=== PATIENT | male | born 1960 | race African-American/Black ===

== ENCOUNTER 2016-08-29 12:08 | Inpatient (IN) | payer BC ==
[2016-08-29] MEDS ORDERED: LORazepam TAB(*) 1 MG PO ONE ×3 (12:31→18:12)
[2016-08-29 12:57] LABS: Hematocrit 40 % (42-52); Hemoglobin 13.2 g/dl (14.0-18.0); Mean Corpuscular HGB Conc 33 g/dl (31-36); Mean Corpuscular Hemoglobin 31 pg (27-31); Mean Corpuscular Volume 94 fL (80-94); Mean Platelet Volume 7 um3 (7.4-10.4); Red Blood Count 4.27 10^6/ul (4.0-5.4); Red Cell Distribution Width 16 % (10.5-15); White Blood Count 6.2 10^3/ul (3.5-10.8)
[2016-08-29 13:16] LABS: Troponin I 0.01 ng/mL (<0.04)
[2016-08-29 13:19] LABS: ALT 151 U/L (7-52); AST 120 U/L (13-39); Albumin 4.1 g/dL (3.2-5.2); Alkaline Phosphatase 73 U/L (34-104); Anion Gap 15 mmol/L (2-11); BUN/Creatinine Ratio 8.2 (8-20); Blood Urea Nitrogen 10 mg/dL (6-24); CO2 Carbon Dioxide 20 mmol/L (22-32); Calcium 9.5 mg/dL (8.6-10.3); Chloride 103 mmol/L (101-111); EGFR Non-African American 61.4 (>60); Globulin 3.2 g/dL (2-4); Glucose 146 mg/dL (70-100); Sodium 138 mmol/L (133-145); Total Protein 7.3 g/dL (6.4-8.9)
--- NOTE | 2016-08-29 13:56 | ED ---
Psychiatric Complaint - HPI Summary HPI Summary: Patient presents with concerns that he can't stop drinking. He had gastric sleeve surgery approximately 3 months ago and since then he has been less and less able to drink alcohol without epigastric pain. Over the last 6 days he has begun to feel that he has a problem with drinking and depression. He has had one week periods of sobriety, but ultimately drinks again. He has not attended any programs, meetings or seen a counselor. 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 He does not have an appointment with his surgeon and has not called regarding his regurg and epigastric pain. He is able to eat and drink regular foods, but believes he is "dumping". No SI or HI. - History Of Current Complaint Chief Complaint: EDMentalHealth Time Seen by Provider: 08/29/16 12:18 Hx Obtained From: Patient Onset/Duration: Gradual Onset Timing: Constant Severity Initially: Moderate Severity Currently: Severe Character: Depressed, Fearful Aggravating Factor(s): Alcohol Use Alleviating Factor(s): Nothing Associated Signs And Symptoms: Positive: Negative - Allergies/Home Medications Allergies/Adverse Reactions: Allergies Allergy/AdvReac Type Severity Reaction Status Date / Time No Known Allergies Allergy Verified 12/06/15 11:17 Home Medications: Home Medications Acetaminophen TAB* [Tylenol TAB*] 650 mg PO Q4H PRN 08/29/16 [History Confirmed 08/29/16] Calcium Citrate-Vitamin D [Constantino-Citrate Plus Vitamin] 1 tab PO DAILY 08/29/16 [ History Confirmed 08/29/16] Docusate CAP* [Colace Cap*] 100 mg PO BID PRN 08/29/16 [History Confirmed ] Liraglutide (NF) [Victoza (NF)] 1.8 mg SUBCUT DAILY 08/29/16 [History Confirmed 08/29/16] Multivitamins/Minerals TAB* [Theragran/minerals TAB*] 1 tab PO DAILY 08/29/16 [ History Confirmed 08/29/16] Ondansetron ODT TAB* [Zofran Odt TAB*] 4 mg PO Q6H PRN 08/29/16 [History Confirmed 08/29/16] Polyethylene Glycol 3350* [Miralax*] 17 gm PO DAILY PRN 08/29/16 [History Confirmed 08/29/16] Thiamine TAB* [Vitamin B-1 TAB*] 100 mg PO DAILY 08/29/16 [History Confirmed ] Ursodiol CAP* [Actigall CAP 300 MG*] 300 mg PO BID 08/29/16 [History Confirmed 08/29/16] oxyCODONE/Acetamin 5/325 MG* [Percocet 5/325 TAB*] 1 tab PO DAILY PRN MDD 1 tab 08/29/16 [History Confirmed 08/29/16] PMH/Surg Hx/FS Hx/Imm Hx Endocrine/Hematology History: Reports: Hx Diabetes Denies: Hx Thyroid Disease Cardiovascular History: Denies: Hx Congestive Heart Failure, Hx Deep Vein Thrombosis, Hx Hypertension , Hx Myocardial Infarction, Hx Pacemaker/ICD Respiratory History: Reports: Hx Sleep Apnea - uses CPAP at night Denies: Hx Asthma, Hx Chronic Obstructive Pulmonary Disease (COPD), Hx Lung Cancer, Hx Pneumonia, Hx Pulmonary Embolism GI History: Denies: Hx Gall Bladder Disease, Hx Gastrointestinal Bleed, Hx Ulcer, Hx Urosepsis History: Denies: Hx Kidney Stones, Hx Renal Disease Musculoskeletal History: Reports: Hx Orthopedic Injury - right knee Sensory History: Reports: Hx Contacts or Glasses Denies: Hx Hearing Aid Opthamlomology History: Reports: Hx Contacts or Glasses Neurological History: Denies: Hx Dementia, Hx Migraine, Hx Seizures, Hx Transient Ischemic Attacks (TIA) Psychiatric History: Denies: Hx Anxiety, Hx Depression, Hx Panic Disorder, Hx Schizophrenia, Hx Bipolar Disorder - Surgical History Surgery Procedure, Year, and Place: KNEE ortho sx in past meniscus/a ligament; achilles tendon repair. Infectious Disease History: No Infectious Disease History: Denies: Hx Clostridium Difficile, Hx Hepatitis, Hx Human Immunodeficiency Virus (HIV), Hx of Known/Suspected MRSA, Hx Shingles, Hx Tuberculosis, Hx Known/ Suspected VRE, Hx Known/Suspected VRSA, History Other Infectious Disease, Traveled Outside the [place] in Last 30 Days - Family History Known Family History: Positive: Cardiac Disease, Renal Disease - Social History Occupation: Unemployed Lives: Alone Alcohol Use: Daily Alcohol Amount: small amount daily Substance Use Type: Reports: None Smoking Status (MU): Former Smoker Review of Systems Positive: Abdominal Pain - epigastic pain. Negative: Vomiting, Diarrhea, Nausea Positive: Depressed - patient is weeping as he speaks All Other Systems Reviewed And Are Negative: Yes Physical Exam Triage Information Reviewed: Yes Vital Signs On Initial Exam: Initial Vitals Temp Pulse Resp BP Pulse Ox 98.1 F 113 20 148/83 100 08/29/16 12:09 08/29/16 12:09 08/29/16 12:09 08/29/16 12:09 08/29/16 12:09 Vital Signs Reviewed: Yes Appearance: Positive: Well-Appearing, No Pain Distress, Obese Skin: Positive: Warm, Skin Color Reflects Adequate Perfusion, Dry, Soft Head/Face: Positive: Normal Head/Face Inspection Eyes: Positive: EOMI, BRUNILDA, Conjunctiva Clear ENT: Positive: Hearing grossly normal Respiratory/Lung Sounds: Positive: Clear to Auscultation, Breath Sounds Present Cardiovascular: Positive: RRR - on exam Abdomen Description: Positive: Nontender, Soft. Negative: CVA Tenderness (R), CVA Tenderness (L), Distended - body habitus is limiting, Guarding Bowel Sounds: Positive: Present Musculoskeletal: Negative: Edema Left, Edema Right Neurological: Positive: Alert, Oriented to Person Place, Time, NV Bundle Intact Distally Psychiatric: Positive: Depressed AVPU Assessment: Alert - [place] Coma Scale Coma Scale Total: 15 Diagnostics - Vital Signs Vital Signs Temp Pulse Resp BP Pulse Ox 08/29/16 13:10 18 08/29/16 12:09 98.1 F 113 20 148/83 100 - Laboratory Lab Results: Lab Results 08/29/16 08/29/16 Range/Units 12:50 12:50 WBC 6.2 (3.5-10.8) 10^3/ul RBC 4.27 (4.0-5.4) 10^6/ul Hgb 13.2 L (14.0-18.0) g/dl Hct 40 L (42-52) % MCV 94 (80-94) fL MCH 31 (27-31) pg MCHC 33 (31-36) g/dl RDW 16 H (10.5-15) % Plt Count 220 (150-450) 10^3/ul MPV 7 L (7.4-10.4) um3 Neut % (Auto) 73.6 (38-83) % Lymph % (Auto) 17.0 L (25-47) % Greene % (Auto) 6.4 (1-9) % Eos % (Auto) 2.3 (0-6) % Baso % (Auto) 0.7 (0-2) % Absolute Neuts (auto) 4.5 (1.5-7.7) 10^3/ul Absolute Lymphs (auto) 1.0 (1.0-4.8) 10^3/ul Absolute Monos (auto) 0.4 (0-0.8) 10^3/ul Absolute Eos (auto) 0.1 (0-0.6) 10^3/ul Absolute Basos (auto) 0 (0-0.2) 10^3/ul Absolute Nucleated RBC 0 10^3/ul Nucleated RBC % 0 Sodium 138 (133-145) mmol/L Potassium 4.0 (3.5-5.0) mmol/L Chloride 103 (101-111) mmol/L Carbon Dioxide 20 L (22-32) mmol/L Anion Gap 15 H (2-11) mmol/L BUN 10 (6-24) mg/dL Creatinine 1.22 H (0.67-1.17) mg/dL Est GFR ( Amer) 79.0 (>60) Est GFR (Non-Af Amer) 61.4 (>60) BUN/Creatinine Ratio 8.2 (8-20) Glucose 146 H (70-100) mg/dL Calcium 9.5 (8.6-10.3) mg/dL Total Bilirubin 0.70 (0.2-1.0) mg/dL AST 120 H (13-39) U/L ALT 151 H (7-52) U/L Alkaline Phosphatase 73 (34-104) U/L Troponin I 0.01 (<0.04) ng/mL Total Protein 7.3 (6.4-8.9) g/dL Albumin 4.1 (3.2-5.2) g/dL Globulin 3.2 (2-4) g/dL Albumin/Globulin Ratio 1.3 (1-3) TSH Pending Salicylates Pending Acetaminophen Pending Serum Alcohol Pending Result Diagrams: 08/30/16 06:05 08/30/16 06:05 Lab Statement: Any lab studies that have been ordered have been reviewed, and results considered in the medical decision making process. Re-Evaluation - Re-Evaluation First Eval Re-Evaluation Time: 14:45 Change: Worse - patient has continued anxiety and epigastric pain Course/Dx - Differential Dx/Clinical Impression Differential Diagnosis/HQI/PQRI: Positive: Acute Psychosis, Alcohol Intoxication , Anxiety, Bipolar Disorder, Depression, Schizophrenia, Suicidal Ideation Provider Diagnosis: Persistent mood [affective] disorder, unspecified - Physician Notifications Patient Is Medically Stable For: Psych Evaluation Discharge - Discharge Plan Condition: Stable Disposition: ADMITTED TO [facility]
[2016-08-29 14:00] LABS: Acetaminophen < 15 mcg/mL; Alcohol 150 mg/dL (<10); Salicylate < 2.50 mg/dL (<30)
[2016-08-29 14:07] LABS: TSH (Thyroid Stimulating Horm) 1.94 mcIU/mL (0.34-5.60)
[2016-08-29 14:54] LABS: Urine Bacteria Absent (Absent); Urine Bilirubin Negative (Negative); Urine Glucose Negative (Negative); Urine Nitrite Negative (Negative)
[2016-08-29] MEDS ORDERED: Omeprazole CAP* 20 MG PO ONE (14:54)
[2016-08-29] MEDS ORDERED: Famotidine TAB* 20 MG PO ONE (14:55)
[2016-08-29 15:12] LABS: Benzodiazepine Urine Screen None Detected (None Detect)
[2016-08-29] MEDS ORDERED: LORazepam TAB(*) 1 MG ONE ×2 (18:14→21:53)
[2016-08-29] MEDS ORDERED: Ondansetron INJ* 2 MG/ML VIAL IV PRN (20:36)
[2016-08-29] MEDS ORDERED: NS 0.9% 1000 ML* 2,000 ML IV ONE (20:36)
[2016-08-29] MEDS ORDERED: LORazepam INJ* 2 MG/ML 1 ML VIAL ONE (20:36)
[2016-08-29] MEDS ORDERED: Thiamine IV* 100 MG, Folic Acid IV* 1 MG, Multiple Vitamin IV ADULT* 10 ML in NS 0.9% 1... IV ONE (20:36)
[2016-08-29] MEDS ORDERED: Dextrose 50% Syringe 50 ML* 25 GM/50 ML SYRINGE IV PUSH PRN (20:36)
[2016-08-29] MEDS ORDERED: LORazepam INJ* 2 MG/ML 1 ML VIAL IV PUSH ONE ×2 (20:39→20:40)
[2016-08-29] MEDS ORDERED: hydrALAZINE IV* 20 MG/ML VIAL IV SLOW PU PRN (20:42)
[2016-08-29] MEDS ORDERED: NS 0.9% 1000 ML* 1,000 ML IV SCH (20:45)
[2016-08-29] MEDS ORDERED: Lisinopril TAB* 10 MG ONE (20:48)
[2016-08-29] MEDS ORDERED: amLODIPine TAB* 5 MG ONE (20:48)
[2016-08-29] MEDS: Lisinopril TAB* 10 MG PO SCH (20:51)
[2016-08-29] MEDS: amLODIPine TAB* 5 MG PO SCH (20:51)
[2016-08-29] MEDS ORDERED: LORazepam TAB(*) 1 MG PO SCH (21:00)
[2016-08-29] MEDS ORDERED: Insulin Detemir (NF) 100 UNIT/ML 10 ML VIAL SUBCUT SCH (21:00)
[2016-08-29] MEDS: buPROPion SR TAB.SR* 150 MG PO SCH (22:00)
--- NOTE | 2016-08-29 23:28 | HP ---
HISTORY AND PHYSICAL: DATE OF ADMISSION: 08/29/16 PRIMARY CARE PROVIDER: Dr. Mena. ATTENDING PHYSICIAN WHILE IN THE HOSPITAL: Dr. Rashad Daniels *(report being dictated by Ronald Farias NP). CHIEF COMPLAINT: 1. Depression. 2. ETOH abuse. 3. ETOH withdrawal. HISTORY OF PRESENT ILLNESS: Mr. Mederos is a 56-year-old male patient who carries a history of diabetes, hypertension, hyperlipidemia. He also has a history of ophthalmic migraines, mitral regurgitation, tobacco abuse, obesity, and history of a CVA in November of 2015. He comes in today initially to the ER for evaluation of feeling down, depressed. He recently started drinking again. Over the last 3 months, he has been binging and he notices that he has been able to drink less and less alcohol due to epigastric pain. He felt the problem over the last week. He was dry heaving. Particularly in the morning, he was feeling nauseous. The patient was concerned, fell down. He came to the hospital. He says he was not suicidal. He was evaluated initially in the ER around 2 o'clock. He was transitioned to the flex unit as he was deemed medically stable. Unfortunately around 8 o'clock this evening after being in the flex unit, they noted that he was becoming tremulous. He was having difficulty over there. He was diaphoretic. There was concern that he was exhibiting withdrawal that may not able to be handled appropriately in the flex unit and it was felt even that he may need medical admission for ETOH withdrawal. Because of this, we were asked to evaluate the patient on admission. The patient states he has never had seizures before from withdrawing from alcohol. To his knowledge, he has never had DTs. He does state he has been drinking quite heavily in the last few months in particularly the last week and today again he came in because he was feeling depressed, but not suicidal, feeling down that he had failed his sobriety and that he was drinking again. He denies having any chest pain. He admits to epigastric pain. It is worse when he does drink alcohol. Denies any vomiting of blood and denies having any tarry stools. Because of the ETOH withdrawal, we were asked to evaluate. PAST MEDICAL HISTORY: Significant for: 1. Diabetes. 2. Hypertension. 3. Hyperlipidemia. 4. Ophthalmic migraines. 5. Mitral regurg. 6. Tobacco abuse. 7. Obesity. 8. CVA. PAST SURGICAL HISTORY: He has had a gastric sleeve surgery about 2 months ago. HOME MEDICATIONS: According to his list include: 1. Percocet 1 tablet daily as needed. 2. Wellbutrin 150 mg p.o. b.i.d. 3. Amlodipine 10 mg in the morning. 4. Actigall 300 mg p.o. daily. 5. Thiamine 100 mg daily. 6. MiraLAX 17 g daily as needed. 7. Protonix 40 mg daily. 8. Zofran 4 mg every 6 hours as needed. 9. Multivitamin 1 tablet daily. 10. Lisinopril/hydrochlorothiazide 1 tablet daily. 11. Victoza 1.8 mg subcu daily. 12. Levemir 30 units subcu b.i.d. 13. Colace 100 mg p.o. b.i.d. as needed. 14. Calcium with vitamin D 1 tablet daily. 15. Lipitor 40 mg daily. 16. Tylenol 650 mg p.o. every 4 hours as needed. ALLERGIES TO MEDICATIONS: Include no known drug allergies. FAMILY HISTORY: His mother has a history of heart disease and also diabetes. Father's history is reviewed, noncontributory. SOCIAL HISTORY: He is a former smoker. He was drinking about two thirds of a bottle of vodka a day over the last month. Surrogate decision maker is his father, Andrea. REVIEW OF SYSTEMS: There is no documented fever. He denied having any significant weight change. There was no double vision. He denies having any ear discharge. There is no rhinorrhea. There is no sore throat. No thyroid enlargement. He denied having any chest pain. There is no orthopnea. No nocturnal dyspnea. There is epigastric discomfort per my HPI. There was dry heaving. No dysuria. No frequency. No loss of consciousness. No pruritus and no skin ulcerations. Review of 14 systems completed, all others negative. PHYSICAL EXAMINATION GENERAL: At this time, Mr. Mederos is a 56-year-old male patient. He does appear to be tremulous. He does not appear to be in any acute distress, but he is obese and is well nourished and well developed. VITAL SIGNS: Blood pressure 163/90 with a pulse of 118, respirations 16, O2 sat 97%, temperature 98.7. HEENT: Head is atraumatic and normocephalic. Eyes: EOMs are intact. Sclerae anicteric and not pale. Throat: Oral mucosa appears to be dry. No oropharyngeal erythema. NECK: Supple. LUNGS: His lungs were clear to auscultation bilaterally. HEART: Sounds S1, S2. He is tachycardic. ABDOMEN: Soft. It was flat. There was tenderness in the epigastric area. EXTREMITIES: Pulses were 2+ throughout. He is able to move all 4 extremities with 5/5 strength. He had no peripheral edema. NEUROLOGIC: He is awake, he is alert, he is oriented x3. His tongue is midline. Child Care Director are equal. He had no gross focal deficits. SKIN: Intact. LABORATORY DATA AND DIAGNOSTIC STUDIES: Today revealed WBC of 6.2, RBC of 4.27 , hemoglobin 13.2, hematocrit 40, his platelets were 220. Sodium is 138, potassium 4.0, chloride of 103, bicarb 20, BUN 10, creatinine 1.22, glucose 146 , calcium 9.5, total bili 0.7, AST 120, ALT 151. Troponin 0.01. TSH 1.94. Urine showed 2 protein, 1+ blood, present hyaline cast. He had urine cannabinoids present and serum alcohol was 150. He did have an EKG here in the ED, which shows sinus tachycardia, rate of 100, flattened T-wave in lead III. It was reviewed to the previous EKG. The flattened T waves are new and tachycardia is new. There are no significant changes. Old medical records were reviewed. ASSESSMENT AND PLAN: Mr. Mederos is a 56-year-old male patient coming into the ER today initially with complaints of depression, not feeling well and feeling discouraged that he started drinking again. The patient was evaluated, medically cleared, sent to the flex unit. Unfortunately in the flex unit around 8 o'clock tonight, it was noted that he was having signs of withdrawal, so the hospitalist service was asked to evaluate. He will admitted under inpatient status for: 1. ETOH withdrawal. At this point, I will go ahead and put him on the [place] protocol. We will give him banana bag. He is tachycardic. I am going to give him 2 L of fluid wide open with the banana bag, after that normal saline at 100 an hour. We started him on folic acid, thiamine. We will give him 2 of Ativan right now IV and then will follow the [facility] protocol. 2. Diabetes. He will be on lispro sliding scale. 3. Epigastric pain. 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 I am going to go ahead and put him on Carafate, in addition to this Protonix IV and we will continue with supportive care. 4. Hypertension. His blood pressure is elevated in the 160 to 170 here. Again , probably from the withdrawal, but he did not take his meds this morning either , so I will go ahead and restart his meds now and I have ordered p.r.n. hydralazine. 5. Hyperlipidemia. Continue meds as prescribed. 6. Ophthalmic migraine. Continue his current medical regimen. 7. History of cerebrovascular accident. Continue with secondary prevention. I noticed he is not on an aspirin currently. We may consider starting that at some point, but I would be hesitant to do that in the setting of alcohol gastritis. May need to consider starting at some point. 8. Tobacco abuse. I have encouraged smoking cessation. 9. DVT prophylaxis. He will be placed on heparin subcu. 10. Code status. Full code. 11. Fluid, electrolyte, and nutrition. He can have a clear liquid diet. TIME SPENT: Time spent on admission was approximately 60 minutes; greater than half the time was spent [id number] with the patient obtaining my history and physical, other half time spent going over the plan of care with the patient and implementing the plan of care. I did discuss the plan of care with my attending, Dr. Daniels, he is in agreement. VIDYA FARIAS NP CC: Dr. Mena* [id number]/[facility]PS #: [id number] RAVI
[2016-08-29] MEDS: LORazepam TAB(*) 1 MG PO SCH (23:49)
[2016-08-29] MEDS: Ursodiol CAP* 300 MG PO SCH (23:53)
[2016-08-29] MEDS: Pantoprazole IV* 40 MG IV SCH (23:53)
[2016-08-30] MEDS: LORazepam TAB(*) 1 MG PO SCH ×6 (03:32→23:57)
[2016-08-30 06:44] LABS: Hematocrit 34 % (42-52); Hemoglobin 11.4 g/dl (14.0-18.0); Mean Corpuscular HGB Conc 33 g/dl (31-36); Mean Corpuscular Hemoglobin 31 pg (27-31); Mean Corpuscular Volume 94 fL (80-94); Mean Platelet Volume 8 um3 (7.4-10.4); Red Blood Count 3.65 10^6/ul (4.0-5.4); Red Cell Distribution Width 16 % (10.5-15); White Blood Count 4.6 10^3/ul (3.5-10.8)
[2016-08-30 07:11] LABS: Albumin 3.6 g/dL (3.2-5.2); BUN/Creatinine Ratio 11.6 (8-20); Calcium 8.9 mg/dL (8.6-10.3); Direct Bilirubin 0.2 mg/dL (0.03-0.18); EGFR African American 63.7 (>60); EGFR Non-African American 49.6 (>60); Globulin 2.5 g/dL (2-4); Indirect Bilirubin 0.7 mg/dL (0.3-1.0); Potassium 3.9 mmol/L (3.5-5.0); Total Bilirubin 0.9 mg/dL (0.2-1.0); Total Protein 6.1 g/dL (6.4-8.9)
[2016-08-30] MEDS: Insulin LISPRO* 1 UNITS UNIT SUBCUT SCH ×3 (07:54→16:43)
[2016-08-30] MEDS: Multivitamins/Minerals TAB PO SCH (08:12)
[2016-08-30] MEDS: Thiamine TAB* 100 MG TAB PO SCH (08:12)
[2016-08-30] MEDS: Folic Acid TAB* 1 MG PO SCH (08:13)
[2016-08-30] MEDS: Aspirin EC Low Dose* 81 MG TAB.EC PO SCH (08:13)
[2016-08-30] MEDS: amLODIPine TAB* 5 MG PO SCH (08:14)
[2016-08-30] MEDS: Lisinopril TAB* 10 MG PO SCH (08:14)
[2016-08-30] MEDS: Atorvastatin* 40 MG TAB PO SCH (08:15)
[2016-08-30] MEDS: Sucralfate TAB* 1 GM PO SCH ×3 (08:15→17:50)
[2016-08-30] MEDS: Ursodiol CAP* 300 MG PO SCH ×2 (08:15→20:32)
[2016-08-30] MEDS: Insulin GLARGINE(*) 1 UNITS UNIT SUBCUT SCH ×2 (08:17→20:33)
[2016-08-30] MEDS: buPROPion SR TAB.SR* 150 MG PO SCH ×2 (08:21→20:34)
[2016-08-30] MEDS: oxyCODONE/Acetamin 5/325 MG* TAB PO PRN (09:43)
--- NOTE | 2016-08-30 13:31 | CONS ---
PSYCHIATRIC CONSULTATION DATE OF CONSULT: 08/30/2016. DATE OF ADMISSION: 08/29/2016. ATTENDING PHYSICIAN: Nurse Practitioner Henrry Beckett. CONSULTING PHYSICIAN: Dr. Rasheed uG. REASON FOR CONSULT: Depression. PSYCHIATRIC HISTORY: The patient is a 56-year-old, single, -Nigerian male with a history of multiple medical problems who arrived in our emergency room yesterday complaining of multiple somati c symptoms of alcohol withdrawal and claiming that he was depressed and overwhelmed. Apparently at one point, he was deemed medically cleared and transferred to the ER flex space for mental health ev aluation; however, while there he developed diaphoresis, dizziness, tremulousness and actually vomit ed on the floor prompting his transfer back to the ER. He has since been admitted to the [facility] for alcohol detoxification and the primary team was worried about his stated complaint of depr ession and wondering if there was something that we could do to help him with this. On examination, the patient tells me that he has a gastric bypass surgery some time in May 2016 at [facility] and he feels that he replaced his addiction with food to an addiction with alcohol. Kevin etime around [place], he started drinking heavily and had done so for the past several months unti l the day of admission where he decided that it was time for him to stop and get some help. Unfortu nately, he started developing symptoms of withdrawal. The patient is steadfastly denying suicidal o r homicidal ideations; in fact, he denies all neurovegetative symptoms of depression. He indicates t hat his depression is merely situational after his recent loss of a job approximately three weeks ag o. 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 He apparently had disagreements with his employers which resulted in him either being fired or quitting. This also involved him changing residences because he had been tita ing on the grounds of that restaurant prior to leaving. 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 At this time, he is indicating to me that alcohol is a problem that he feels is not under h is control and he would be interested in placement in an alcohol rehabilitation facility. PAST PSYCHIATRIC HISTORY: The patient has never been diagnosed with a mental illness, nor has he carlisle d any counseling or psychiatric services. He has never taken antidepressant medications. He has no history of homicidality nor suicidality. PAST MEDICAL HISTORY: Significant for diabetes, hypertension, hyperlipidemia, ophthalmic migraines, mitral regurgitation, obesity, status post bariatric surgery in May 2016, and he had a stroke in November 2015. CURRENT MEDICATIONS: 1. Percocet one tablet daily as needed. 2. Wellbutrin 150 mg p.o. b.i.d., presumably used as a smoking cessation aid. 3. Amlodipine 10 mg in the morning. 4. Actigall 300 mg daily. 5. Thiamine 100 mg daily. 6. MiraLax 17 gm daily as needed. 7. Protonix 40 mg daily. 8. Zofran 4 mg every 6 hours as needed. 9. Multivitamin one tablet daily. 10. Lisinopril 20 mg daily. 11. Hydrochlorothiazide 25 mg daily. 12. Victoza 1.8 mg subcutaneous daily. 13. Levemir 30 units subcutaneously b.i.d. 14. Colace 100 mg p.o. b.i.d. 15. Calcium with vitamin D one tablet daily. 16. Lipitor 40 mg p.o. daily. 17. Tylenol 650 as needed every 4 hours for pain. ALLERGIES: He has no known drug allergies. FAMILY HISTORY: He denies a history of suicides in the family. SUBSTANCE ABUSE HISTORY: The patient has a long history of alcohol abuse and states that he has had to reign this in on his own in the past. He has never gone to AA meetings or gone to rehab. He carlisle s no history of DT's or seizures when withdrawing from alcohol. He has been drinking up to two-thir ds of a liter of vodka per day. He denies illicit substance abuse. He denies any current cigarette smoking, although he quit smoking cigarettes several years ago. SOCIAL HISTORY: The patient was born in [place], [place] and grew up as what he calls a militar y braangela with his father who was in the [employer] and his mother. His parents are still together. He has one sister. [place] in the [place] as his fat her would be transferred in the [employer] and so he has lived all over the country. 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 He does have a college culinary degree from a small school in [place]. He has never been , has no c hildren. He states that he is spiritual and believes in things like karma, but he does not follow a specific pentecostal. 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 He received an honorable discharge. Currently, he is living in a [facility] apartment here in [facility] and he is unemployed and living on his financial savings. His father is currently residing in [place], [place] and they are very supportive. MENTAL STATUS EXAM: The patient is a large, tall, middle-aged, -[place]igerian male wearing a manuel ent gown. He has an IV inserted and he is sitting up on his hospital bed, making good eye. Speech has a normal rate, tone and volume and he is easy to establish a rapport with. Mood appears to be e uthymic with a full affect. Thought process is linear and goal-directed. Thought content is signifi cant for his desire to quit drinking. He is denying suicidal or homicidal ideations. He denies aud itory or visual hallucinations. Insight and judgment are fair given his willingness to come to the hospital seeking treatment. Cognitively, he is awake and alert with what would appear to be an aver age intellect. DIAGNOSES: AXIS I: Alcohol use disorder; alcohol-induced mood disorder. AXIS II: Deferred. ASSESSMENT: The patient is a 56-year-old, single, -[place]ian male with a history of alcohol d ependence who arrives at the hospital in acute withdrawal from alcohol and he presents with depressi on, but no suicidality. He is given his options in the community for substance abuse treatment and at this time he is most interested in inpatient rehab. I have discussed the case with the attending clinician, who is Henrry Beckett, who is in agreement that the patient would be well- served with chris bstance abuse referral. RECOMMENDATIONS TO PRIMARY TEAM: My recommendation is that the psychiatric social worker supervisor on the [facility] unit bec ome involved in the patient's care and try and see if we can transfer him to an accepting inpatient substance abuse rehab facility. He would be cleared for transfer to such a facility in the [facility] his alcohol detoxification is completed on [facility]. I do not believe that there is any indication for any further antidepressant treatment at this point as I think his mood problems are secondary to alcohol consumption. Thank you for allowing me to participate in the care of this gentleman. [id number]/[facility] #: [id number]
--- NOTE | 2016-08-30 13:43 | PN ---
Subjective Date of Service: 08/30/16 Interval History: Patient seen and examined at bedside. He is intermittently sleeping but arouses easily to noise. He reports that he is feeling "a little better" but still feels "somewhat yucky." He denies CP, SOB, fever/chills, palpitations. He reports some anxiety and abdominal pain that comes and goes. However, he does state that he was able to eat and drink this morning. Family History: Unchanged from Admission Social History: Unchanged from Admission Past Medical History: Unchanged from Admission Objective Active Medications: Amlodipine Besylate (Norvasc Tab*) 10 mg PO QAM [facility] Last Admin: 08/30/16 08:14 Dose: 10 mg Aspirin (Aspirin Ec Low Dose*) 81 mg PO DAILY [facility] Last Admin: 08/30/16 08:13 Dose: 81 mg Atorvastatin Calcium (Lipitor*) 40 mg PO DAILY [facility] Last Admin: 08/30/16 08:15 Dose: 40 mg Bupropion HCl (Wellbutrin Sr Tab*) 150 mg PO BID [facility] Last Admin: 08/30/16 08:21 Dose: Not Given Dextrose (D50w Syringe 50 Ml*) 12.5 gm IV PUSH .FOR FS < 60 - SS PRN PRN Reason: FS < 60 Folic Acid (Folvite Tab*) 1 mg PO DAILY [facility] Last Admin: 08/30/16 08:13 Dose: 1 mg Hydralazine HCl (Apresoline Iv*) 5 mg IV SLOW PU Q6H PRN PRN Reason: BLOOD PRESSURE Sodium Chloride (Ns 0.9% 1000 Ml*) 1,000 mls @ 100 mls/hr IV PER RATE [facility] Insulin Glargine (Lantus(*)) 30 units SUBCUT BID [facility] Last Admin: 08/30/16 08:17 Dose: 30 units Insulin Human Lispro (Humalog*) 0 units SUBCUT AC [facility] PRN Reason: Protocol Last Admin: 08/30/16 12:17 Dose: Not Given Lisinopril (Prinivil Tab*) 20 mg PO DAILY [facility] Last Admin: 08/30/16 08:14 Dose: 20 mg Lorazepam (Ativan Tab(*)) 0 - 6 mg PO .PER WAM SCORE [facility] PRN Reason: Protocol Last Admin: 08/30/16 09:31 Dose: 2 mg Multivitamins/Minerals (Theragran/Minerals Tab*) 1 tab PO DAILY [facility] Last Admin: 08/30/16 08:12 Dose: 1 tab Ondansetron HCl (Zofran Inj*) 4 mg IV Q6H PRN PRN Reason: NAUSEA Oxycodone/Acetaminophen (Percocet 5/325 Tab*) 1 tab PO DAILY PRN PRN Reason: PAIN Last Admin: 08/30/16 09:43 Dose: 1 tab Pantoprazole Sodium (Protonix Iv*) 40 mg IV Q24H [facility] Last Admin: 08/29/16 23:53 Dose: 40 mg Sucralfate (Carafate*) 1 gm PO AC [facility] Last Admin: 08/30/16 12:15 Dose: 1 gm Thiamine HCl (Vitamin B-1 Tab*) 100 mg PO DAILY [facility] Last Admin: 08/30/16 08:12 Dose: 100 mg Ursodiol (Actigall Cap*) 300 mg PO BID [facility] Last Admin: 08/30/16 08:15 Dose: 300 mg Vital Signs 08/29/16 08/29/16 08/29/16 20:39 21:20 21:59 Temperature 100.0 F Pulse Rate 119 Respiratory 22 16 16 Rate Blood Pressure 155/82 (mmHg) O2 Sat by Pulse 100 Oximetry 08/29/16 08/29/16 08/29/16 22:45 23:00 23:26 Temperature 98.2 F Pulse Rate 110 Respiratory 22 16 Rate Blood Pressure 140/62 (mmHg) O2 Sat by Pulse 98 100 Oximetry 08/29/16 08/29/16 08/30/16 23:49 23:59 01:04 Temperature Pulse Rate 104 Respiratory 16 18 Rate Blood Pressure 138/55 (mmHg) O2 Sat by Pulse 99 Oximetry 08/30/16 08/30/16 08/30/16 01:49 03:25 03:32 Temperature Pulse Rate 90 Respiratory 16 16 16 Rate Blood Pressure 181/61 (mmHg) O2 Sat by Pulse 100 Oximetry 08/30/16 08/30/16 08/30/16 05:28 05:32 07:44 Temperature 98.4 F 97.9 F Pulse Rate 91 96 Respiratory 15 16 Rate Blood Pressure 140/59 130/60 (mmHg) O2 Sat by Pulse 99 99 Oximetry 08/30/16 08/30/16 08/30/16 08:00 08:09 08:32 Temperature Pulse Rate Respiratory 18 18 Rate Blood Pressure (mmHg) O2 Sat by Pulse 98 Oximetry 08/30/16 08/30/16 08/30/16 08:57 08:59 09:31 Temperature 98.0 F Pulse Rate 120 121 Respiratory 16 18 Rate Blood Pressure 134/75 (mmHg) O2 Sat by Pulse 99 99 Oximetry 08/30/16 08/30/16 08/30/16 09:43 10:09 11:12 Temperature 98.0 F Pulse Rate 98 Respiratory 18 18 14 Rate Blood Pressure 124/63 (mmHg) O2 Sat by Pulse 97 Oximetry Oxygen Devices in Use Now: None Appearance: Male patient, lying in bed, in NAD Eyes: PERRLA Ears/Nose/Mouth/Throat: Clear Oropharnyx, Mucous Membranes Moist Neck: NL Appearance and Movements; NL JVP Respiratory: Symmetrical Chest Expansion and Respiratory Effort, Clear to Auscultation Cardiovascular: NL Sounds; No Murmurs; No JVD, RRR Abdominal: NL Sounds; No Tenderness; No Distention Extremities: No Edema Skin: No Rash or Ulcers Neurological: Alert and Oriented x 3 Lines/Tubes/Other Access: Clean, Dry and Intact Peripheral IV Nutrition: Taking PO's Result Diagrams: 08/30/16 06:05 08/30/16 06:05 Additional Lab and Data: Lab Results 08/29/16 08/29/16 Range/Units 12:50 12:50 WBC 6.2 (3.5-10.8) 10^3/ul RBC 4.27 (4.0-5.4) 10^6/ul Hgb 13.2 L (14.0-18.0) g/dl Hct 40 L (42-52) % MCV 94 (80-94) fL MCH 31 (27-31) pg MCHC 33 (31-36) g/dl RDW 16 H (10.5-15) % Plt Count 220 (150-450) 10^3/ul MPV 7 L (7.4-10.4) um3 Neut % (Auto) 73.6 (38-83) % Lymph % (Auto) 17.0 L (25-47) % [place] % (Auto) 6.4 (1-9) % Eos % (Auto) 2.3 (0-6) % Baso % (Auto) 0.7 (0-2) % Absolute Neuts (auto) 4.5 (1.5-7.7) 10^3/ul Absolute Lymphs (auto) 1.0 (1.0-4.8) 10^3/ul Absolute Monos (auto) 0.4 (0-0.8) 10^3/ul Absolute Eos (auto) 0.1 (0-0.6) 10^3/ul Absolute Basos (auto) 0 (0-0.2) 10^3/ul Absolute Nucleated RBC 0 10^3/ul Nucleated RBC % 0 Sodium 138 (133-145) mmol/L Potassium 4.0 (3.5-5.0) mmol/L Chloride 103 (101-111) mmol/L Carbon Dioxide 20 L (22-32) mmol/L Anion Gap 15 H (2-11) mmol/L BUN 10 (6-24) mg/dL Creatinine 1.22 H (0.67-1.17) mg/dL Est GFR ( Amer) 79.0 (>60) Est GFR (Non-Af Amer) 61.4 (>60) BUN/Creatinine Ratio 8.2 (8-20) Glucose 146 H (70-100) mg/dL Calcium 9.5 (8.6-10.3) mg/dL Total Bilirubin 0.70 (0.2-1.0) mg/dL AST 120 H (13-39) U/L ALT 151 H (7-52) U/L Alkaline Phosphatase 73 (34-104) U/L Troponin I 0.01 (<0.04) ng/mL Total Protein 7.3 (6.4-8.9) g/dL Albumin 4.1 (3.2-5.2) g/dL Globulin 3.2 (2-4) g/dL Albumin/Globulin Ratio 1.3 (1-3) TSH Pending Salicylates Pending Acetaminophen Pending Serum Alcohol Pending Assess/Plan/Problems-Billing Assessment: Mr. Mederos is a 56 yo male with a PMH of ETOH abuse, DM, HTN, HLD, opthalmic migraines, mitral regurgitation, tobacco abuse, obesity and CVA who presented to the ED on 08/29/16 with c/o depression and ETOH abuse and concern for ETOH withdrawal. - Patient Problems (1) Alcohol withdrawal Code(s): F10.239 - ALCOHOL DEPENDENCE WITH WITHDRAWAL, UNSPECIFIED Comment: Patient requiring lorazepam with WAM assessments. Continue WAM protocol and IV hydration. Continue thiamine and folic acid. (2) Alcohol abuse Code(s): F10.10 - ALCOHOL ABUSE, UNCOMPLICATED Comment: In active withdrawal, requiring supplemental lorazepam. Patient reports depression and increased ETOH use, given his social situation. Appreciate psych consult, who recommended inpatient treatment facility SW following (3) Acute kidney injury Code(s): N17.9 - ACUTE KIDNEY FAILURE, UNSPECIFIED Comment: Suspect acute on chronic kidney injury, as creatinine has been elevated in previous admissions. Suspect pre-renal causes, recheck creatinine tomorrow. Avoid nephrotoxic medications and renally dose medications as necessary. (4) Epigastric pain Code(s): R10.13 - EPIGASTRIC PAIN Comment: Patient denies nausea/vomiting and reports some improvement. Able to tolerate PO intake. Suspect alcoholic gastritis, continue sucralfate and pantoprazole and continue to monitor. (5) Diabetes Code(s): E11.9 - TYPE 2 DIABETES MELLITUS WITHOUT COMPLICATIONS Comment: Controlled, HgbA1c pending. Continue FSBG with Lispro SSI and BID Lantus. Resume Victoza upon discharge. (6) HTN (hypertension) Code(s): I10 - ESSENTIAL (PRIMARY) HYPERTENSION Comment: Relatively well controlled, SBP 120s-140s (one BP in 180s) Continue amlodipine and lisinopril and PRN hydralazine. (7) Hyperlipidemia Code(s): E78.5 - HYPERLIPIDEMIA, UNSPECIFIED Comment: Continue home atorvastatin. (8) History of CVA (cerebrovascular accident) Code(s): Z86.73 - PRSNL HX OF TIA (TIA), AND CEREB INFRC W/O RESID DEFICITS Comment: Continue ASA and statin. (9) DVT prophylaxis Code(s): [id number] - Comment: SQ heparin (10) Full code status Code(s): Z78.9 - OTHER SPECIFIED HEALTH STATUS Status and Disposition: Inpatient admission. Anticipate LOS >2 days.
[2016-08-30] MEDS: Heparin VIAL(*) 5000 UNITS/ML VIAL (FIVE THOUSAND) SUBCUT SCH ×2 (15:40→21:30)
[2016-08-30] MEDS: Pantoprazole IV* 40 MG IV SCH (20:34)
[2016-08-31] MEDS: LORazepam TAB(*) 1 MG PO SCH ×5 (01:55→22:07)
[2016-08-31] MEDS: NS 0.9% 1000 ML* 1,000 ML IV SCH (06:18)
[2016-08-31] MEDS: Heparin VIAL(*) 5000 UNITS/ML VIAL (FIVE THOUSAND) SUBCUT SCH ×3 (06:18→22:12)
[2016-08-31 07:18] LABS: BUN/Creatinine Ratio 15.4 (8-20); Calcium 9.3 mg/dL (8.6-10.3); EGFR African American 82.9 (>60); EGFR Non-African American 64.5 (>60); Potassium 3.8 mmol/L (3.5-5.0)
[2016-08-31] MEDS: Insulin LISPRO* 1 UNITS UNIT SUBCUT SCH ×3 (08:09→16:53)
[2016-08-31] MEDS: Sucralfate TAB* 1 GM PO SCH ×3 (08:40→17:30)
[2016-08-31] MEDS: Aspirin EC Low Dose* 81 MG TAB.EC PO SCH (08:40)
[2016-08-31] MEDS: amLODIPine TAB* 5 MG PO SCH (08:41)
[2016-08-31] MEDS: Lisinopril TAB* 10 MG PO SCH (08:42)
[2016-08-31] MEDS: Ursodiol CAP* 300 MG PO SCH ×2 (08:43→21:47)
[2016-08-31] MEDS: Thiamine TAB* 100 MG TAB PO SCH (08:43)
[2016-08-31] MEDS: Multivitamins/Minerals TAB PO SCH (08:44)
[2016-08-31] MEDS: Atorvastatin* 40 MG TAB PO SCH (08:44)
[2016-08-31] MEDS: Folic Acid TAB* 1 MG PO SCH (08:44)
[2016-08-31] MEDS: buPROPion SR TAB.SR* 150 MG PO SCH ×2 (08:45→22:11)
[2016-08-31] MEDS ORDERED: Insulin GLARGINE(*) 1 UNITS UNIT SUBCUT SCH (09:22)
[2016-08-31] MEDS: Insulin GLARGINE(*) 1 UNITS UNIT SUBCUT SCH ×2 (09:56→22:34)
--- NOTE | 2016-08-31 13:33 | PN ---
Subjective Date of Service: 08/31/16 Interval History: Patient seen and examined at bedside. He is more anxious today and expressed concern about lost phone. Nursing and security made aware. He denies CP, SOB, abd pain. He does state he had some "queasiness" this morning and that medicine helped. He is asking about "what he is doing here." We discussed his alcohol use and withdrawal. Patient reminded of his desire to pursue inpatient treatment , which he agrees with. I did explain that the earliest this could happen would be Friday, and he verbalized understanding. Family History: Unchanged from Admission Social History: Unchanged from Admission Past Medical History: Unchanged from Admission Objective Active Medications: Amlodipine Besylate (Norvasc Tab*) 10 mg PO QAM [facility] Last Admin: 08/31/16 08:41 Dose: 10 mg Aspirin (Aspirin Ec Low Dose*) 81 mg PO DAILY [facility] Last Admin: 08/31/16 08:40 Dose: 81 mg Atorvastatin Calcium (Lipitor*) 40 mg PO DAILY [facility] Last Admin: 08/31/16 08:44 Dose: 40 mg Bupropion HCl (Wellbutrin Sr Tab*) 150 mg PO BID [facility] Last Admin: 08/31/16 08:45 Dose: Not Given Dextrose (D50w Syringe 50 Ml*) 12.5 gm IV PUSH .FOR FS < 60 - SS PRN PRN Reason: FS < 60 Last Admin: 08/30/16 23:20 Dose: 12.5 gm Folic Acid (Folvite Tab*) 1 mg PO DAILY [facility] Last Admin: 08/31/16 08:44 Dose: 1 mg Heparin Sodium (Porcine) (Heparin Vial(*)) 5,000 units SUBCUT Q8HR [facility] Last Admin: 08/31/16 06:18 Dose: 5,000 units Hydralazine HCl (Apresoline Iv*) 5 mg IV SLOW PU Q6H PRN PRN Reason: BLOOD PRESSURE Last Admin: 08/31/16 01:46 Dose: 5 mg Sodium Chloride (Ns 0.9% 1000 Ml*) 1,000 mls @ 100 mls/hr IV PER RATE [facility] Last Admin: 08/30/16 20:34 Dose: 100 mls/hr Sodium Chloride (Ns 0.9% 1000 Ml*) 1,000 mls @ 100 mls/hr IV PER RATE [facility] Last Admin: 08/31/16 06:18 Dose: 100 mls/hr Insulin Glargine (Lantus(*)) 20 units SUBCUT BID [facility] Insulin Human Lispro (Humalog*) 0 units SUBCUT AC [facility] PRN Reason: Protocol Last Admin: 08/31/16 13:07 Dose: Not Given Lisinopril (Prinivil Tab*) 20 mg PO DAILY [facility] Last Admin: 08/31/16 08:42 Dose: 20 mg Lorazepam (Ativan Tab(*)) 0 - 6 mg PO .PER WAM SCORE [facility] PRN Reason: Protocol Last Admin: 08/31/16 12:48 Dose: 3 mg Multivitamins/Minerals (Theragran/Minerals Tab*) 1 tab PO DAILY [facility] Last Admin: 08/31/16 08:44 Dose: 1 tab Ondansetron HCl (Zofran Inj*) 4 mg IV Q6H PRN PRN Reason: NAUSEA Last Admin: 08/30/16 23:34 Dose: 4 mg Oxycodone/Acetaminophen (Percocet 5/325 Tab*) 1 tab PO DAILY PRN PRN Reason: PAIN Last Admin: 08/30/16 09:43 Dose: 1 tab Pantoprazole Sodium (Protonix Iv*) 40 mg IV Q24H [facility] Last Admin: 08/30/16 20:34 Dose: 40 mg Sucralfate (Carafate*) 1 gm PO AC [facility] Last Admin: 08/31/16 13:13 Dose: 1 gm Thiamine HCl (Vitamin B-1 Tab*) 100 mg PO DAILY [facility] Last Admin: 08/31/16 08:43 Dose: 100 mg Ursodiol (Actigall Cap*) 300 mg PO BID [facility] Last Admin: 08/31/16 08:43 Dose: 300 mg Vital Signs 08/30/16 08/30/16 08/30/16 14:19 15:25 15:39 Temperature 98.5 F 98.3 F Pulse Rate 120 111 Respiratory 16 16 16 Rate Blood Pressure 131/75 122/80 (mmHg) O2 Sat by Pulse 99 99 Oximetry 08/30/16 08/30/16 08/30/16 16:41 17:23 17:39 Temperature Pulse Rate 105 Respiratory 18 18 Rate Blood Pressure 137/84 (mmHg) O2 Sat by Pulse 99 98 Oximetry 08/30/16 08/30/16 08/30/16 18:34 18:39 20:00 Temperature 98.5 F Pulse Rate 101 Respiratory 16 18 20 Rate Blood Pressure 145/88 (mmHg) O2 Sat by Pulse 100 Oximetry 08/30/16 08/30/16 08/30/16 20:39 21:07 23:20 Temperature 98.1 F 98.4 F Pulse Rate 106 115 Respiratory 20 19 Rate Blood Pressure 129/78 168/86 (mmHg) O2 Sat by Pulse 98 96 Oximetry 08/30/16 08/31/16 08/31/16 23:57 01:41 01:55 Temperature 97.9 F Pulse Rate 96 Respiratory 16 19 18 Rate Blood Pressure 196/91 (mmHg) O2 Sat by Pulse 98 Oximetry 08/31/16 08/31/16 08/31/16 01:57 03:06 03:55 Temperature Pulse Rate 94 Respiratory 16 16 Rate Blood Pressure 141/86 (mmHg) O2 Sat by Pulse 98 Oximetry 08/31/16 08/31/16 08/31/16 04:08 06:09 06:19 Temperature 97.4 F 98.3 F Pulse Rate 95 108 Respiratory 18 Rate Blood Pressure 155/61 141/91 (mmHg) O2 Sat by Pulse 98 99 Oximetry 08/31/16 08/31/16 08/31/16 08:01 08:19 08:42 Temperature 98.0 F Pulse Rate 106 Respiratory 18 18 18 Rate Blood Pressure 143/82 (mmHg) O2 Sat by Pulse 98 Oximetry 08/31/16 08/31/16 08/31/16 10:09 10:42 12:22 Temperature 98.0 F 98.3 F Pulse Rate 91 112 Respiratory 17 18 16 Rate Blood Pressure 170/64 126/88 (mmHg) O2 Sat by Pulse 99 99 Oximetry 08/31/16 12:48 Temperature Pulse Rate Respiratory 20 Rate Blood Pressure (mmHg) O2 Sat by Pulse Oximetry Oxygen Devices in Use Now: None Appearance: Male patient, sitting on edge of bed, in NAD Eyes: PERRLA Ears/Nose/Mouth/Throat: Clear Oropharnyx, Mucous Membranes Moist Neck: NL Appearance and Movements; NL JVP Respiratory: Symmetrical Chest Expansion and Respiratory Effort, Clear to Auscultation Cardiovascular: NL Sounds; No Murmurs; No JVD, RRR - tachycardic, AP 102 Abdominal: NL Sounds; No Tenderness; No Distention Extremities: No Clubbing, Cyanosis - +1-2 pitting edema to BLE Skin: No Rash or Ulcers - open area to back of left ankle Neurological: Alert and Oriented x 3, NL Gait, NL Muscle Strength and Tone, - - mild tremor to BUE Lines/Tubes/Other Access: Clean, Dry and Intact Peripheral IV Nutrition: Taking PO's Result Diagrams: 08/30/16 06:05 08/31/16 06:25 Additional Lab and Data: Lab Results 08/29/16 08/29/16 Range/Units 12:50 12:50 WBC 6.2 (3.5-10.8) 10^3/ul RBC 4.27 (4.0-5.4) 10^6/ul Hgb 13.2 L (14.0-18.0) g/dl Hct 40 L (42-52) % MCV 94 (80-94) fL MCH 31 (27-31) pg MCHC 33 (31-36) g/dl RDW 16 H (10.5-15) % Plt Count 220 (150-450) 10^3/ul MPV 7 L (7.4-10.4) um3 Neut % (Auto) 73.6 (38-83) % Lymph % (Auto) 17.0 L (25-47) % [place] % (Auto) 6.4 (1-9) % Eos % (Auto) 2.3 (0-6) % Baso % (Auto) 0.7 (0-2) % Absolute Neuts (auto) 4.5 (1.5-7.7) 10^3/ul Absolute Lymphs (auto) 1.0 (1.0-4.8) 10^3/ul Absolute Monos (auto) 0.4 (0-0.8) 10^3/ul Absolute Eos (auto) 0.1 (0-0.6) 10^3/ul Absolute Basos (auto) 0 (0-0.2) 10^3/ul Absolute Nucleated RBC 0 10^3/ul Nucleated RBC % 0 Sodium 138 (133-145) mmol/L Potassium 4.0 (3.5-5.0) mmol/L Chloride 103 (101-111) mmol/L Carbon Dioxide 20 L (22-32) mmol/L Anion Gap 15 H (2-11) mmol/L BUN 10 (6-24) mg/dL Creatinine 1.22 H (0.67-1.17) mg/dL Est GFR ( Amer) 79.0 (>60) Est GFR (Non-Af Amer) 61.4 (>60) BUN/Creatinine Ratio 8.2 (8-20) Glucose 146 H (70-100) mg/dL Calcium 9.5 (8.6-10.3) mg/dL Total Bilirubin 0.70 (0.2-1.0) mg/dL AST 120 H (13-39) U/L ALT 151 H (7-52) U/L Alkaline Phosphatase 73 (34-104) U/L Troponin I 0.01 (<0.04) ng/mL Total Protein 7.3 (6.4-8.9) g/dL Albumin 4.1 (3.2-5.2) g/dL Globulin 3.2 (2-4) g/dL Albumin/Globulin Ratio 1.3 (1-3) TSH Pending Salicylates Pending Acetaminophen Pending Serum Alcohol Pending Assess/Plan/Problems-Billing Assessment: Mr. Mederos is a 56 yo male with a PMH of ETOH abuse, DM, HTN, HLD, opthalmic migraines, mitral regurgitation, tobacco abuse, obesity and CVA who presented to the ED on 08/29/16 with c/o depression and ETOH abuse and concern for ETOH withdrawal. - Patient Problems (1) Alcohol withdrawal Code(s): F10.239 - ALCOHOL DEPENDENCE WITH WITHDRAWAL, UNSPECIFIED Comment: Patient requiring lorazepam with WAM assessments, scoring as high as 10. Will add Librium to medication regimen. Continue WAM protocol. Continue thiamine and folic acid. Awaiting inpatient treatment facility placement. (2) Alcohol abuse Code(s): F10.10 - ALCOHOL ABUSE, UNCOMPLICATED Comment: In active withdrawal, requiring supplemental lorazepam. Patient reports depression and increased ETOH use, given his social situation. Appreciate psych consult, who recommended inpatient treatment facility SW following (3) Acute kidney injury Code(s): N17.9 - ACUTE KIDNEY FAILURE, UNSPECIFIED Comment: Suspect acute on chronic kidney injury, as creatinine has been elevated in previous admissions. Resolved, creatinine better than baseline. Avoid nephrotoxic medications and renally dose medications as necessary. (4) Epigastric pain Code(s): R10.13 - EPIGASTRIC PAIN Comment: Improved, continue sucralfate and pantoprazole. May be secondary to alcoholic gastritis. (5) Diabetes Code(s): E11.9 - TYPE 2 DIABETES MELLITUS WITHOUT COMPLICATIONS Comment: Controlled, HgbA1c 7.0 Reduce home Lantus dosing to 10 units daily, as patient has been having hypoglycemic episodes. Continue FSBG with Lispro SSI. Resume Victoza upon discharge. (6) HTN (hypertension) Code(s): I10 - ESSENTIAL (PRIMARY) HYPERTENSION Comment: SBP 120s-190s Continue amlodipine and lisinopril and PRN hydralazine. Monitor closely in presence of ETOH withdrawal. (7) Hyperlipidemia Code(s): E78.5 - HYPERLIPIDEMIA, UNSPECIFIED Comment: Continue home atorvastatin. (8) History of CVA (cerebrovascular accident) Code(s): Z86.73 - PRSNL HX OF TIA (TIA), AND CEREB INFRC W/O RESID DEFICITS Comment: Continue ASA and statin. (9) DVT prophylaxis Code(s): [id number] - Comment: SQ heparin (10) Full code status Code(s): Z78.9 - OTHER SPECIFIED HEALTH STATUS Status and Disposition: Inpatient admission. Anticipate LOS >2 days.
[2016-08-31] MEDS: chlordiazePOXIDE CAP* 25 MG PO SCH ×2 (15:29→21:46)
[2016-08-31] MEDS: oxyCODONE/Acetamin 5/325 MG* TAB PO PRN (21:46)
[2016-08-31] MEDS: Pantoprazole IV* 40 MG IV SCH (22:12)
[2016-09-01] MEDS: NS 0.9% 1000 ML* 1,000 ML IV SCH ×2 (01:42→20:00)
[2016-09-01] MEDS: Heparin VIAL(*) 5000 UNITS/ML VIAL (FIVE THOUSAND) SUBCUT SCH ×3 (06:58→20:34)
[2016-09-01] MEDS: Insulin LISPRO* 1 UNITS UNIT SUBCUT SCH ×3 (08:25→17:51)
[2016-09-01] MEDS: Thiamine TAB* 100 MG TAB PO SCH (08:42)
[2016-09-01] MEDS: Aspirin EC Low Dose* 81 MG TAB.EC PO SCH (08:42)
[2016-09-01] MEDS: Multivitamins/Minerals TAB PO SCH (08:42)
[2016-09-01] MEDS: Atorvastatin* 40 MG TAB PO SCH (08:42)
[2016-09-01] MEDS: Ursodiol CAP* 300 MG PO SCH ×2 (08:42→20:34)
[2016-09-01] MEDS: chlordiazePOXIDE CAP* 25 MG PO SCH ×3 (08:42→20:34)
[2016-09-01] MEDS: oxyCODONE/Acetamin 5/325 MG* TAB PO PRN ×2 (08:43→20:42)
[2016-09-01] MEDS: Folic Acid TAB* 1 MG PO SCH (08:43)
[2016-09-01] MEDS: buPROPion SR TAB.SR* 150 MG PO SCH ×2 (08:43→20:36)
[2016-09-01] MEDS: amLODIPine TAB* 5 MG PO SCH (08:44)
[2016-09-01] MEDS: Lisinopril TAB* 10 MG PO SCH (08:44)
[2016-09-01] MEDS: Sucralfate TAB* 1 GM PO SCH ×3 (08:44→17:00)
--- NOTE | 2016-09-01 09:35 | PN ---
Subjective Date of Service: 09/01/16 Interval History: Patient seen and examined at bedside. He is sleeping but easily arousable. He states, "I'm a little groggy but not too bad this morning." He reports left knee pain that's "old pain" and states the Percocet helps with it. He denies dizziness, chest pain, SOB, abd pain, n/v. Family History: Unchanged from Admission Social History: Unchanged from Admission Past Medical History: Unchanged from Admission Objective Active Medications: Amlodipine Besylate (Norvasc Tab*) 10 mg PO QAM [facility] Last Admin: 09/01/16 08:44 Dose: 10 mg Aspirin (Aspirin Ec Low Dose*) 81 mg PO DAILY [facility] Last Admin: 09/01/16 08:42 Dose: 81 mg Atorvastatin Calcium (Lipitor*) 40 mg PO DAILY [facility] Last Admin: 09/01/16 08:42 Dose: 40 mg Bupropion HCl (Wellbutrin Sr Tab*) 150 mg PO BID [facility] Last Admin: 09/01/16 08:43 Dose: Not Given Chlordiazepoxide (Librium Cap*) 50 mg PO TID [facility] Last Admin: 09/01/16 08:42 Dose: 50 mg Dextrose (D50w Syringe 50 Ml*) 12.5 gm IV PUSH .FOR FS < 60 - SS PRN PRN Reason: FS < 60 Last Admin: 08/30/16 23:20 Dose: 12.5 gm Folic Acid (Folvite Tab*) 1 mg PO DAILY [facility] Last Admin: 09/01/16 08:43 Dose: 1 mg Heparin Sodium (Porcine) (Heparin Vial(*)) 5,000 units SUBCUT Q8HR [facility] Last Admin: 09/01/16 06:58 Dose: 5,000 units Hydralazine HCl (Apresoline Iv*) 5 mg IV SLOW PU Q6H PRN PRN Reason: BLOOD PRESSURE Last Admin: 08/31/16 01:46 Dose: 5 mg Sodium Chloride (Ns 0.9% 1000 Ml*) 1,000 mls @ 100 mls/hr IV PER RATE [facility] Last Admin: 08/30/16 20:34 Dose: 100 mls/hr Sodium Chloride (Ns 0.9% 1000 Ml*) 1,000 mls @ 100 mls/hr IV PER RATE [facility] Last Admin: 02/19/17 01:42 Dose: 50 mls/hr Insulin Glargine (Lantus(*)) 10 units SUBCUT BEDTIME [facility] Last Admin: 08/31/16 22:34 Dose: 10 units Insulin Human Lispro (Humalog*) 0 units SUBCUT AC [facility] PRN Reason: Protocol Last Admin: 09/01/16 08:25 Dose: Not Given Lisinopril (Prinivil Tab*) 20 mg PO DAILY [facility] Last Admin: 09/01/16 08:44 Dose: 20 mg Lorazepam (Ativan Tab(*)) 0 - 6 mg PO .PER WAM SCORE [facility] PRN Reason: Protocol Last Admin: 08/31/16 22:07 Dose: 3 mg Multivitamins/Minerals (Theragran/Minerals Tab*) 1 tab PO DAILY [facility] Last Admin: 09/01/16 08:42 Dose: 1 tab Ondansetron HCl (Zofran Inj*) 4 mg IV Q6H PRN PRN Reason: NAUSEA Last Admin: 08/30/16 23:34 Dose: 4 mg Oxycodone/Acetaminophen (Percocet 5/325 Tab*) 1 tab PO DAILY PRN PRN Reason: PAIN Last Admin: 09/01/16 08:43 Dose: 1 tab Pantoprazole Sodium (Protonix Iv*) 40 mg IV Q24H [facility] Last Admin: 08/31/16 22:12 Dose: 40 mg Sucralfate (Carafate*) 1 gm PO AC [facility] Last Admin: 09/01/16 08:44 Dose: 1 gm Thiamine HCl (Vitamin B-1 Tab*) 100 mg PO DAILY [facility] Last Admin: 09/01/16 08:42 Dose: 100 mg Ursodiol (Actigall Cap*) 300 mg PO BID [facility] Last Admin: 09/01/16 08:42 Dose: 300 mg Vital Signs 08/31/16 08/31/16 08/31/16 10:09 10:42 12:22 Temperature 98.0 F 98.3 F Pulse Rate 91 112 Respiratory 17 18 16 Rate Blood Pressure 170/64 126/88 (mmHg) O2 Sat by Pulse 99 99 Oximetry 08/31/16 08/31/16 08/31/16 12:48 14:20 14:48 Temperature 98.6 F Pulse Rate 117 Respiratory 20 16 18 Rate Blood Pressure 134/74 (mmHg) O2 Sat by Pulse 99 Oximetry 08/31/16 08/31/16 08/31/16 15:29 16:33 17:29 Temperature Pulse Rate 92 Respiratory 18 20 20 Rate Blood Pressure 145/87 (mmHg) O2 Sat by Pulse 97 Oximetry 08/31/16 08/31/16 08/31/16 21:00 21:14 21:46 Temperature Pulse Rate 117 Respiratory 18 16 Rate Blood Pressure 131/92 (mmHg) O2 Sat by Pulse 99 Oximetry 08/31/16 08/31/16 08/31/16 22:07 23:12 23:46 Temperature 98.5 F Pulse Rate 109 Respiratory 16 18 16 Rate Blood Pressure 139/92 (mmHg) O2 Sat by Pulse 98 Oximetry 09/01/16 09/01/16 09/01/16 00:00 00:07 01:51 Temperature 97.6 F Pulse Rate 92 Respiratory 16 16 18 Rate Blood Pressure 133/65 (mmHg) O2 Sat by Pulse 100 Oximetry 09/01/16 09/01/16 09/01/16 03:56 06:13 08:42 Temperature 98.0 F 98.1 F Pulse Rate 96 88 Respiratory 18 18 16 Rate Blood Pressure 145/82 144/71 (mmHg) O2 Sat by Pulse 98 97 Oximetry 09/01/16 08:43 Temperature Pulse Rate Respiratory 16 Rate Blood Pressure (mmHg) O2 Sat by Pulse Oximetry Oxygen Devices in Use Now: None Appearance: Male patient, lying in bed, in NAD Eyes: PERRLA Ears/Nose/Mouth/Throat: Clear Oropharnyx, Mucous Membranes Moist Neck: NL Appearance and Movements; NL JVP Respiratory: Symmetrical Chest Expansion and Respiratory Effort, Clear to Auscultation Cardiovascular: NL Sounds; No Murmurs; No JVD, RRR Abdominal: NL Sounds; No Tenderness; No Distention Extremities: No Clubbing, Cyanosis - +1 BLE Skin: No Rash or Ulcers Neurological: Alert and Oriented x 3 Lines/Tubes/Other Access: Clean, Dry and Intact Peripheral IV Nutrition: Taking PO's Result Diagrams: 08/30/16 06:05 08/31/16 06:25 Additional Lab and Data: Lab Results 08/29/16 08/29/16 Range/Units 12:50 12:50 WBC 6.2 (3.5-10.8) 10^3/ul RBC 4.27 (4.0-5.4) 10^6/ul Hgb 13.2 L (14.0-18.0) g/dl Hct 40 L (42-52) % MCV 94 (80-94) fL MCH 31 (27-31) pg MCHC 33 (31-36) g/dl RDW 16 H (10.5-15) % Plt Count 220 (150-450) 10^3/ul MPV 7 L (7.4-10.4) um3 Neut % (Auto) 73.6 (38-83) % Lymph % (Auto) 17.0 L (25-47) % [place] % (Auto) 6.4 (1-9) % Eos % (Auto) 2.3 (0-6) % Baso % (Auto) 0.7 (0-2) % Absolute Neuts (auto) 4.5 (1.5-7.7) 10^3/ul Absolute Lymphs (auto) 1.0 (1.0-4.8) 10^3/ul Absolute Monos (auto) 0.4 (0-0.8) 10^3/ul Absolute Eos (auto) 0.1 (0-0.6) 10^3/ul Absolute Basos (auto) 0 (0-0.2) 10^3/ul Absolute Nucleated RBC 0 10^3/ul Nucleated RBC % 0 Sodium 138 (133-145) mmol/L Potassium 4.0 (3.5-5.0) mmol/L Chloride 103 (101-111) mmol/L Carbon Dioxide 20 L (22-32) mmol/L Anion Gap 15 H (2-11) mmol/L BUN 10 (6-24) mg/dL Creatinine 1.22 H (0.67-1.17) mg/dL Est GFR ( Amer) 79.0 (>60) Est GFR (Non-Af Amer) 61.4 (>60) BUN/Creatinine Ratio 8.2 (8-20) Glucose 146 H (70-100) mg/dL Calcium 9.5 (8.6-10.3) mg/dL Total Bilirubin 0.70 (0.2-1.0) mg/dL AST 120 H (13-39) U/L ALT 151 H (7-52) U/L Alkaline Phosphatase 73 (34-104) U/L Troponin I 0.01 (<0.04) ng/mL Total Protein 7.3 (6.4-8.9) g/dL Albumin 4.1 (3.2-5.2) g/dL Globulin 3.2 (2-4) g/dL Albumin/Globulin Ratio 1.3 (1-3) TSH Pending Salicylates Pending Acetaminophen Pending Serum Alcohol Pending Assess/Plan/Problems-Billing Assessment: Mr. Mederos is a 56 yo male with a PMH of ETOH abuse, DM, HTN, HLD, opthalmic migraines, mitral regurgitation, tobacco abuse, obesity and CVA who presented to the ED on 08/29/16 with c/o depression and ETOH abuse and concern for ETOH withdrawal. - Patient Problems (1) Alcohol withdrawal Code(s): F10.239 - ALCOHOL DEPENDENCE WITH WITHDRAWAL, UNSPECIFIED Comment: Improving, continue Librium and prn lorazepam. Continue WAM protocol. Continue thiamine and folic acid. Awaiting inpatient treatment facility placement. (2) Alcohol abuse Code(s): F10.10 - ALCOHOL ABUSE, UNCOMPLICATED Comment: In active withdrawal, requiring Librium and supplemental lorazepam. Patient reports depression and increased ETOH use, given his social situation. Appreciate psych consult, who recommended inpatient treatment facility SW following (3) Acute kidney injury Code(s): N17.9 - ACUTE KIDNEY FAILURE, UNSPECIFIED Comment: Suspect acute on chronic kidney injury, as creatinine has been elevated in previous admissions. Resolved, creatinine better than baseline. Avoid nephrotoxic medications and renally dose medications as necessary. (4) Epigastric pain Code(s): R10.13 - EPIGASTRIC PAIN Comment: Resolved, continue sucralfate and pantoprazole. May be secondary to alcoholic gastritis. Recommend outpatient follow-up with PCP for further workup. (5) Diabetes Code(s): E11.9 - TYPE 2 DIABETES MELLITUS WITHOUT COMPLICATIONS Comment: Controlled, HgbA1c 7.0 Continue reduced dose Lantus 10 units. Continue FSBG with Lispro SSI. Resume Victoza upon discharge. (6) HTN (hypertension) Code(s): I10 - ESSENTIAL (PRIMARY) HYPERTENSION Comment: Better controlled. Continue amlodipine and lisinopril and PRN hydralazine. Monitor closely in presence of ETOH withdrawal. (7) Hyperlipidemia Code(s): E78.5 - HYPERLIPIDEMIA, UNSPECIFIED Comment: Continue home atorvastatin. (8) History of CVA (cerebrovascular accident) Code(s): Z86.73 - PRSNL HX OF TIA (TIA), AND CEREB INFRC W/O RESID DEFICITS Comment: Continue ASA and statin. (9) DVT prophylaxis Code(s): HLT0360 - Comment: SQ heparin (10) Full code status Code(s): Z78.9 - OTHER SPECIFIED HEALTH STATUS Status and Disposition: Inpatient admission. Anticipate LOS >2 days.
[2016-09-01] MEDS ORDERED: Docusate CAP* 100 MG PO PRN (12:08)
[2016-09-01] MEDS: LORazepam TAB(*) 1 MG PO SCH ×2 (13:14→23:10)
[2016-09-01] MEDS: Polyethylene Glycol 3350* 17 GM PACKET PO SCH (13:15)
[2016-09-01] MEDS: Insulin GLARGINE(*) 1 UNITS UNIT SUBCUT SCH (20:34)
[2016-09-02] MEDS: Omeprazole CAP* 20 MG PO SCH (05:52)
[2016-09-02] MEDS: Heparin VIAL(*) 5000 UNITS/ML VIAL (FIVE THOUSAND) SUBCUT SCH ×3 (05:52→20:16)
[2016-09-02] MEDS: Sucralfate TAB* 1 GM PO SCH ×3 (07:57→16:57)
[2016-09-02] MEDS: Insulin LISPRO* 1 UNITS UNIT SUBCUT SCH ×3 (07:57→17:12)
[2016-09-02] MEDS: Lisinopril TAB* 10 MG PO SCH (10:49)
[2016-09-02] MEDS: Aspirin EC Low Dose* 81 MG TAB.EC PO SCH (10:49)
[2016-09-02] MEDS: Folic Acid TAB* 1 MG PO SCH (10:49)
[2016-09-02] MEDS: Atorvastatin* 40 MG TAB PO SCH (10:50)
[2016-09-02] MEDS: chlordiazePOXIDE CAP* 25 MG PO SCH ×3 (10:50→20:16)
[2016-09-02] MEDS: amLODIPine TAB* 5 MG PO SCH (10:51)
[2016-09-02] MEDS: buPROPion SR TAB.SR* 150 MG PO SCH ×3 (10:51→20:17)
[2016-09-02] MEDS: oxyCODONE/Acetamin 5/325 MG* TAB PO PRN (10:52)
[2016-09-02] MEDS: Polyethylene Glycol 3350* 17 GM PACKET PO SCH ×2 (10:52→14:48)
[2016-09-02] MEDS: Thiamine TAB* 100 MG TAB PO SCH (10:52)
[2016-09-02] MEDS: Multivitamins/Minerals TAB PO SCH (10:55)
[2016-09-02] MEDS: Ursodiol CAP* 300 MG PO SCH ×2 (11:41→20:15)
[2016-09-02] MEDS ORDERED: Ibuprofen TAB* 600 MG PO PRN (16:13)
[2016-09-02] MEDS ORDERED: NS 0.9% 1000 ML* 1,000 ML IV SCH (16:17)
--- NOTE | 2016-09-02 16:20 | PN ---
Subjective Date of Service: 09/02/16 Interval History: Patient seen and examined at bedside. He states he's feeling better today, but tired. Denies CP, SOB, abd pain, n/v. Denies epigastric pain, tremor. Has joint pain, which is chronic, and he is taking pain medication as needed for this. Family History: Unchanged from Admission Social History: Unchanged from Admission Past Medical History: Unchanged from Admission Objective Active Medications: Amlodipine Besylate (Norvasc Tab*) 10 mg PO QAM [facility] Last Admin: 09/02/16 10:51 Dose: 10 mg Aspirin (Aspirin Ec Low Dose*) 81 mg PO DAILY [facility] Last Admin: 09/02/16 10:49 Dose: 81 mg Atorvastatin Calcium (Lipitor*) 40 mg PO DAILY [facility] Last Admin: 09/02/16 10:50 Dose: 40 mg Bupropion HCl (Wellbutrin Sr Tab*) 150 mg PO BID [facility] Last Admin: 09/02/16 11:31 Dose: Not Given Chlordiazepoxide (Librium Cap*) 50 mg PO TID [facility] Last Admin: 09/02/16 14:35 Dose: 50 mg Dextrose (D50w Syringe 50 Ml*) 12.5 gm IV PUSH .FOR FS < 60 - SS PRN PRN Reason: FS < 60 Last Admin: 08/30/16 23:20 Dose: 12.5 gm Docusate Sodium (Colace Cap*) 100 mg PO BID PRN PRN Reason: CONSTIPATION Folic Acid (Folvite Tab*) 1 mg PO DAILY [facility] Last Admin: 09/02/16 10:49 Dose: 1 mg Heparin Sodium (Porcine) (Heparin Vial(*)) 5,000 units SUBCUT Q8HR [facility] Last Admin: 09/02/16 14:35 Dose: 5,000 units Hydralazine HCl (Apresoline Iv*) 5 mg IV SLOW PU Q6H PRN PRN Reason: BLOOD PRESSURE Last Admin: 08/31/16 01:46 Dose: 5 mg Sodium Chloride (Ns 0.9% 1000 Ml*) 1,000 mls @ 100 mls/hr IV PER RATE [facility] Last Admin: 08/30/16 20:34 Dose: 100 mls/hr Sodium Chloride (Ns 0.9% 1000 Ml*) 1,000 mls @ 100 mls/hr IV PER RATE [facility] Last Admin: 09/01/16 20:00 Dose: 100 mls/hr Ibuprofen (Motrin Tab*) 600 mg PO Q8H PRN PRN Reason: PAIN Insulin Human Lispro (Humalog*) 0 units SUBCUT AC [facility] PRN Reason: Protocol Last Admin: 09/02/16 11:50 Dose: Not Given Lisinopril (Prinivil Tab*) 20 mg PO DAILY [facility] Last Admin: 09/02/16 10:49 Dose: 20 mg Lorazepam (Ativan Tab(*)) 0 - 6 mg PO .PER WAM SCORE [facility] PRN Reason: Protocol Last Admin: 09/01/16 23:10 Dose: 2 mg Metformin HCl (Glucophage*) 500 mg PO 0800,1700 [facility] Multivitamins/Minerals (Theragran/Minerals Tab*) 1 tab PO DAILY [facility] Last Admin: 09/02/16 10:55 Dose: Not Given Omeprazole (Prilosec Cap*) 20 mg PO 0600 [facility] Last Admin: 09/02/16 05:52 Dose: 20 mg Ondansetron HCl (Zofran Inj*) 4 mg IV Q6H PRN PRN Reason: NAUSEA Last Admin: 08/30/16 23:34 Dose: 4 mg Oxycodone/Acetaminophen (Percocet 5/325 Tab*) 1 tab PO DAILY PRN PRN Reason: PAIN Last Admin: 09/02/16 10:52 Dose: 1 tab Polyethylene Glycol/Electrolytes (Miralax*) 17 gm PO DAILY [facility] Last Admin: 09/02/16 14:48 Dose: 17 gm Sucralfate (Carafate*) 1 gm PO AC [facility] Last Admin: 09/02/16 11:48 Dose: 1 gm Thiamine HCl (Vitamin B-1 Tab*) 100 mg PO DAILY [facility] Last Admin: 09/02/16 10:52 Dose: 100 mg Ursodiol (Actigall Cap*) 300 mg PO BID [facility] Last Admin: 09/02/16 11:41 Dose: 300 mg Vital Signs 09/01/16 09/01/16 09/01/16 18:30 19:40 20:00 Temperature Pulse Rate 103 Respiratory 16 16 16 Rate Blood Pressure 131/85 (mmHg) O2 Sat by Pulse 99 Oximetry 09/01/16 09/01/16 09/01/16 20:17 20:34 20:42 Temperature 98.3 F Pulse Rate 86 Respiratory 16 16 16 Rate Blood Pressure 113/73 (mmHg) O2 Sat by Pulse 100 Oximetry 09/01/16 09/01/16 09/01/16 22:20 22:34 22:42 Temperature Pulse Rate 97 Respiratory 16 16 Rate Blood Pressure 111/81 (mmHg) O2 Sat by Pulse 100 Oximetry 09/01/16 09/02/16 09/02/16 23:10 00:00 00:02 Temperature 98.0 F Pulse Rate 80 Respiratory 18 16 16 Rate Blood Pressure 127/65 (mmHg) O2 Sat by Pulse 100 Oximetry 09/02/16 09/02/16 09/02/16 01:10 02:00 02:29 Temperature 97.7 F Pulse Rate 84 Respiratory 16 20 20 Rate Blood Pressure 113/57 (mmHg) O2 Sat by Pulse 98 Oximetry 09/02/16 09/02/16 09/02/16 03:56 04:00 05:51 Temperature 98.0 F 97.2 F Pulse Rate 86 80 Respiratory 16 16 16 Rate Blood Pressure 125/71 131/62 (mmHg) O2 Sat by Pulse 99 99 Oximetry 09/02/16 09/02/16 09/02/16 07:52 08:00 10:50 Temperature 97.5 F Pulse Rate 109 Respiratory 15 17 16 Rate Blood Pressure 125/72 (mmHg) O2 Sat by Pulse 100 Oximetry 09/02/16 09/02/16 09/02/16 10:52 11:02 12:52 Temperature 98.0 F Pulse Rate 106 Respiratory 16 16 16 Rate Blood Pressure 125/80 (mmHg) O2 Sat by Pulse 100 Oximetry 09/02/16 09/02/16 09/02/16 13:07 14:35 14:41 Temperature 98.2 F Pulse Rate 106 112 Respiratory 16 20 Rate Blood Pressure 98/69 119/71 (mmHg) O2 Sat by Pulse 100 98 Oximetry Oxygen Devices in Use Now: None Appearance: Male patient, lying in bed, in NAD Eyes: PERRLA Ears/Nose/Mouth/Throat: Clear Oropharnyx, Mucous Membranes Moist Neck: NL Appearance and Movements; NL JVP Respiratory: Symmetrical Chest Expansion and Respiratory Effort, Clear to Auscultation Cardiovascular: NL Sounds; No Murmurs; No JVD, RRR Abdominal: NL Sounds; No Tenderness; No Distention Extremities: No Clubbing, Cyanosis - +1 BLE Skin: No Rash or Ulcers Neurological: Alert and Oriented x 3 Lines/Tubes/Other Access: Clean, Dry and Intact Peripheral IV Nutrition: Taking PO's Result Diagrams: 08/30/16 06:05 08/31/16 06:25 Additional Lab and Data: Lab Results 08/29/16 08/29/16 Range/Units 12:50 12:50 WBC 6.2 (3.5-10.8) 10^3/ul RBC 4.27 (4.0-5.4) 10^6/ul Hgb 13.2 L (14.0-18.0) g/dl Hct 40 L (42-52) % MCV 94 (80-94) fL MCH 31 (27-31) pg MCHC 33 (31-36) g/dl RDW 16 H (10.5-15) % Plt Count 220 (150-450) 10^3/ul MPV 7 L (7.4-10.4) um3 Neut % (Auto) 73.6 (38-83) % Lymph % (Auto) 17.0 L (25-47) % [place] % (Auto) 6.4 (1-9) % Eos % (Auto) 2.3 (0-6) % Baso % (Auto) 0.7 (0-2) % Absolute Neuts (auto) 4.5 (1.5-7.7) 10^3/ul Absolute Lymphs (auto) 1.0 (1.0-4.8) 10^3/ul Absolute Monos (auto) 0.4 (0-0.8) 10^3/ul Absolute Eos (auto) 0.1 (0-0.6) 10^3/ul Absolute Basos (auto) 0 (0-0.2) 10^3/ul Absolute Nucleated RBC 0 10^3/ul Nucleated RBC % 0 Sodium 138 (133-145) mmol/L Potassium 4.0 (3.5-5.0) mmol/L Chloride 103 (101-111) mmol/L Carbon Dioxide 20 L (22-32) mmol/L Anion Gap 15 H (2-11) mmol/L BUN 10 (6-24) mg/dL Creatinine 1.22 H (0.67-1.17) mg/dL Est GFR ( Amer) 79.0 (>60) Est GFR (Non-Af Amer) 61.4 (>60) BUN/Creatinine Ratio 8.2 (8-20) Glucose 146 H (70-100) mg/dL Calcium 9.5 (8.6-10.3) mg/dL Total Bilirubin 0.70 (0.2-1.0) mg/dL AST 120 H (13-39) U/L ALT 151 H (7-52) U/L Alkaline Phosphatase 73 (34-104) U/L Troponin I 0.01 (<0.04) ng/mL Total Protein 7.3 (6.4-8.9) g/dL Albumin 4.1 (3.2-5.2) g/dL Globulin 3.2 (2-4) g/dL Albumin/Globulin Ratio 1.3 (1-3) TSH Pending Salicylates Pending Acetaminophen Pending Serum Alcohol Pending Assess/Plan/Problems-Billing Assessment: Mr. Mederos is a 56 yo male with a PMH of ETOH abuse, DM, HTN, HLD, opthalmic migraines, mitral regurgitation, tobacco abuse, obesity and CVA who presented to the ED on 08/29/16 with c/o depression and ETOH abuse and concern for ETOH withdrawal. - Patient Problems (1) Alcohol withdrawal Code(s): F10.239 - ALCOHOL DEPENDENCE WITH WITHDRAWAL, UNSPECIFIED Comment: Improving, continue Librium and prn lorazepam. Continue WAM protocol q4h. Continue thiamine and folic acid. Awaiting inpatient treatment facility placement. (2) Alcohol abuse Code(s): F10.10 - ALCOHOL ABUSE, UNCOMPLICATED Comment: Improved. Continue Librium and prn lorazepam per WAM protocol. Patient reports depression and increased ETOH use, given his social situation. Appreciate psych consult, who recommended inpatient treatment facility SW following - potential bed offers later this week. (3) Acute kidney injury Code(s): N17.9 - ACUTE KIDNEY FAILURE, UNSPECIFIED Comment: Suspect acute on chronic kidney injury, as creatinine has been elevated in previous admissions. Resolved, creatinine better than baseline. Avoid nephrotoxic medications and renally dose medications as necessary. (4) Epigastric pain Code(s): R10.13 - EPIGASTRIC PAIN Comment: Resolved, continue sucralfate and pantoprazole. May be secondary to alcoholic gastritis. Recommend outpatient follow-up with PCP for further workup. (5) Diabetes Code(s): E11.9 - TYPE 2 DIABETES MELLITUS WITHOUT COMPLICATIONS Comment: Controlled, HgbA1c 7.0 BG well controlled. D/c Lantus, start metformin. Continue FSBG with Lispro SSI. Resume Victoza upon discharge. (6) HTN (hypertension) Code(s): I10 - ESSENTIAL (PRIMARY) HYPERTENSION Comment: Normotensive. Continue amlodipine and lisinopril and PRN hydralazine. Monitor closely in presence of ETOH withdrawal. (7) Hyperlipidemia Code(s): E78.5 - HYPERLIPIDEMIA, UNSPECIFIED Comment: Continue home atorvastatin. (8) History of CVA (cerebrovascular accident) Code(s): Z86.73 - PRSNL HX OF TIA (TIA), AND CEREB INFRC W/O RESID DEFICITS Comment: Continue ASA and statin. (9) DVT prophylaxis Code(s): [id number] - Comment: SQ heparin (10) Full code status Code(s): Z78.9 - OTHER SPECIFIED HEALTH STATUS Status and Disposition: Inpatient admission. Anticipate LOS >2 days. Inpatient treatment placement in progress.
[2016-09-02] MEDS ORDERED: metFORMIN* 500 MG TAB PO SCH (17:00)
[2016-09-02] MEDS ORDERED: Acetaminophen TAB* 325 MG PO PRN (18:36)
[2016-09-02] MEDS: Insulin GLARGINE(*) 1 UNITS UNIT SUBCUT SCH (20:15)
[2016-09-03] MEDS: Omeprazole CAP* 20 MG PO SCH (05:31)
[2016-09-03] MEDS: Heparin VIAL(*) 5000 UNITS/ML VIAL (FIVE THOUSAND) SUBCUT SCH ×3 (05:31→21:29)
[2016-09-03] MEDS: Insulin LISPRO* 1 UNITS UNIT SUBCUT SCH ×2 (07:27→12:34)
[2016-09-03] MEDS ORDERED: glipiZIDE TAB* 5 MG PO SCH ×2 (08:00→17:00)
[2016-09-03] MEDS: Sucralfate TAB* 1 GM PO SCH ×3 (08:09→17:46)
[2016-09-03] MEDS: Lisinopril TAB* 10 MG PO SCH (09:07)
[2016-09-03] MEDS: amLODIPine TAB* 5 MG PO SCH (09:07)
[2016-09-03] MEDS: Multivitamins/Minerals TAB PO SCH (09:07)
[2016-09-03] MEDS: Thiamine TAB* 100 MG TAB PO SCH (09:07)
[2016-09-03] MEDS: Folic Acid TAB* 1 MG PO SCH (09:07)
[2016-09-03] MEDS: Aspirin EC Low Dose* 81 MG TAB.EC PO SCH (09:08)
[2016-09-03] MEDS: Atorvastatin* 40 MG TAB PO SCH (09:08)
[2016-09-03] MEDS: chlordiazePOXIDE CAP* 25 MG PO SCH ×2 (09:08→13:01)
[2016-09-03] MEDS: Polyethylene Glycol 3350* 17 GM PACKET PO SCH (09:09)
[2016-09-03] MEDS: Ursodiol CAP* 300 MG PO SCH ×2 (09:09→21:46)
[2016-09-03] MEDS: buPROPion SR TAB.SR* 150 MG PO SCH ×3 (09:09→21:44)
[2016-09-03] MEDS ORDERED: Magnesium CITRATE* 300 ML BTL PO ONE (12:33)
[2016-09-03] MEDS ORDERED: chlordiazePOXIDE CAP* 25 MG PO PRN (14:44)
--- NOTE | 2016-09-03 14:47 | PN ---
Subjective Date of Service: 09/03/16 Interval History: Patient seen and examined at bedside. He is sitting up in bed. The patient is happy because he found his phone. He denies tremors, chest pain, abd pain, n/v. He is looking forward to starting his inpatient treatment. No acute concerns from nursing. Family History: Unchanged from Admission Social History: Unchanged from Admission Past Medical History: Unchanged from Admission Objective Active Medications: Acetaminophen (Tylenol Tab*) 650 mg PO Q4H PRN PRN Reason: FEVER Amlodipine Besylate (Norvasc Tab*) 10 mg PO QAM [facility] Last Admin: 09/03/16 09:07 Dose: 10 mg Aspirin (Aspirin Ec Low Dose*) 81 mg PO DAILY [facility] Last Admin: 09/03/16 09:08 Dose: 81 mg Atorvastatin Calcium (Lipitor*) 40 mg PO DAILY [facility] Last Admin: 09/03/16 09:08 Dose: 40 mg Bupropion HCl (Wellbutrin Sr Tab*) 150 mg PO BID [facility] Last Admin: 09/03/16 09:09 Dose: Not Given Chlordiazepoxide (Librium Cap*) 50 mg PO TID [facility] Last Admin: 09/03/16 13:01 Dose: 50 mg Dextrose (D50w Syringe 50 Ml*) 12.5 gm IV PUSH .FOR FS < 60 - SS PRN PRN Reason: FS < 60 Last Admin: 08/30/16 23:20 Dose: 12.5 gm Docusate Sodium (Colace Cap*) 100 mg PO BID PRN PRN Reason: CONSTIPATION Folic Acid (Folvite Tab*) 1 mg PO DAILY [facility] Last Admin: 09/03/16 09:07 Dose: 1 mg Glipizide (Glucotrol Tab*) 2.5 mg PO 0800,1700 [facility] Last Admin: 09/03/16 09:07 Dose: 2.5 mg Heparin Sodium (Porcine) (Heparin Vial(*)) 5,000 units SUBCUT Q8HR [facility] Last Admin: 09/03/16 13:02 Dose: 5,000 units Hydralazine HCl (Apresoline Iv*) 5 mg IV SLOW PU Q6H PRN PRN Reason: BLOOD PRESSURE Last Admin: 08/31/16 01:46 Dose: 5 mg Sodium Chloride (Ns 0.9% 1000 Ml*) 1,000 mls @ 100 mls/hr IV PER RATE [facility] Last Admin: 08/30/16 20:34 Dose: 100 mls/hr Sodium Chloride (Ns 0.9% 1000 Ml*) 1,000 mls @ 75 mls/hr IV PER RATE [facility] Last Admin: 09/02/16 17:12 Dose: 75 mls/hr Ibuprofen (Motrin Tab*) 600 mg PO Q8H PRN PRN Reason: PAIN Insulin Glargine (Lantus(*)) 10 units SUBCUT Q24H [facility] Last Admin: 09/02/16 20:15 Dose: 10 units Insulin Human Lispro (Humalog*) 0 units SUBCUT AC [facility] PRN Reason: Protocol Last Admin: 09/03/16 12:34 Dose: Not Given Lisinopril (Prinivil Tab*) 20 mg PO DAILY [facility] Last Admin: 09/03/16 09:07 Dose: 20 mg Lorazepam (Ativan Tab(*)) 0 - 6 mg PO .PER WAM SCORE [facility] PRN Reason: Protocol Last Admin: 09/01/16 23:10 Dose: 2 mg Multivitamins/Minerals (Theragran/Minerals Tab*) 1 tab PO DAILY [facility] Last Admin: 09/03/16 09:07 Dose: 1 tab Omeprazole (Prilosec Cap*) 20 mg PO 0600 [facility] Last Admin: 09/03/16 05:31 Dose: 20 mg Ondansetron HCl (Zofran Inj*) 4 mg IV Q6H PRN PRN Reason: NAUSEA Last Admin: 08/30/16 23:34 Dose: 4 mg Oxycodone/Acetaminophen (Percocet 5/325 Tab*) 1 tab PO DAILY PRN PRN Reason: PAIN Last Admin: 09/02/16 10:52 Dose: 1 tab Polyethylene Glycol/Electrolytes (Miralax*) 17 gm PO DAILY [facility] Last Admin: 09/03/16 09:09 Dose: 17 gm Sucralfate (Carafate*) 1 gm PO AC [facility] Last Admin: 09/03/16 13:01 Dose: 1 gm Thiamine HCl (Vitamin B-1 Tab*) 100 mg PO DAILY [facility] Last Admin: 09/03/16 09:07 Dose: 100 mg Ursodiol (Actigall Cap*) 300 mg PO BID [facility] Last Admin: 09/03/16 09:09 Dose: 300 mg Vital Signs 09/02/16 09/02/16 09/02/16 16:13 16:35 18:11 Temperature 98.6 F Pulse Rate 90 98 Respiratory 16 16 16 Rate Blood Pressure 123/67 115/61 (mmHg) O2 Sat by Pulse 99 100 Oximetry 09/02/16 09/02/16 09/02/16 18:14 19:59 20:00 Temperature 98.4 F Pulse Rate 102 Respiratory 16 16 16 Rate Blood Pressure 112/67 (mmHg) O2 Sat by Pulse 100 Oximetry 09/02/16 09/02/16 09/03/16 20:16 22:16 00:04 Temperature 97.9 F Pulse Rate 84 Respiratory 16 16 21 Rate Blood Pressure 124/73 (mmHg) O2 Sat by Pulse 100 Oximetry 09/03/16 09/03/16 09/03/16 00:16 04:00 04:08 Temperature 97.9 F Pulse Rate 82 Respiratory 16 21 21 Rate Blood Pressure 128/73 (mmHg) O2 Sat by Pulse 99 Oximetry 09/03/16 09/03/16 09/03/16 07:44 08:00 09:08 Temperature 98.1 F Pulse Rate 95 Respiratory 14 20 20 Rate Blood Pressure 130/77 (mmHg) O2 Sat by Pulse 100 Oximetry 09/03/16 09/03/16 09/03/16 11:02 11:08 13:01 Temperature 97.9 F Pulse Rate 93 Respiratory 14 19 19 Rate Blood Pressure 131/75 (mmHg) O2 Sat by Pulse 100 Oximetry Oxygen Devices in Use Now: None Appearance: Male patient, lying in bed, in NAD Eyes: PERRLA Ears/Nose/Mouth/Throat: Clear Oropharnyx, Mucous Membranes Moist Neck: NL Appearance and Movements; NL JVP Respiratory: Symmetrical Chest Expansion and Respiratory Effort, Clear to Auscultation Cardiovascular: NL Sounds; No Murmurs; No JVD, RRR Abdominal: NL Sounds; No Tenderness; No Distention Extremities: No Clubbing, Cyanosis - +1 BLE edema Skin: No Rash or Ulcers Neurological: Alert and Oriented x 3 Nutrition: Taking PO's Result Diagrams: 08/30/16 06:05 08/31/16 06:25 Additional Lab and Data: Lab Results 08/29/16 08/29/16 Range/Units 12:50 12:50 WBC 6.2 (3.5-10.8) 10^3/ul RBC 4.27 (4.0-5.4) 10^6/ul Hgb 13.2 L (14.0-18.0) g/dl Hct 40 L (42-52) % MCV 94 (80-94) fL MCH 31 (27-31) pg MCHC 33 (31-36) g/dl RDW 16 H (10.5-15) % Plt Count 220 (150-450) 10^3/ul MPV 7 L (7.4-10.4) um3 Neut % (Auto) 73.6 (38-83) % Lymph % (Auto) 17.0 L (25-47) % [place] % (Auto) 6.4 (1-9) % Eos % (Auto) 2.3 (0-6) % Baso % (Auto) 0.7 (0-2) % Absolute Neuts (auto) 4.5 (1.5-7.7) 10^3/ul Absolute Lymphs (auto) 1.0 (1.0-4.8) 10^3/ul Absolute Monos (auto) 0.4 (0-0.8) 10^3/ul Absolute Eos (auto) 0.1 (0-0.6) 10^3/ul Absolute Basos (auto) 0 (0-0.2) 10^3/ul Absolute Nucleated RBC 0 10^3/ul Nucleated RBC % 0 Sodium 138 (133-145) mmol/L Potassium 4.0 (3.5-5.0) mmol/L Chloride 103 (101-111) mmol/L Carbon Dioxide 20 L (22-32) mmol/L Anion Gap 15 H (2-11) mmol/L BUN 10 (6-24) mg/dL Creatinine 1.22 H (0.67-1.17) mg/dL Est GFR ( Amer) 79.0 (>60) Est GFR (Non-Af Amer) 61.4 (>60) BUN/Creatinine Ratio 8.2 (8-20) Glucose 146 H (70-100) mg/dL Calcium 9.5 (8.6-10.3) mg/dL Total Bilirubin 0.70 (0.2-1.0) mg/dL AST 120 H (13-39) U/L ALT 151 H (7-52) U/L Alkaline Phosphatase 73 (34-104) U/L Troponin I 0.01 (<0.04) ng/mL Total Protein 7.3 (6.4-8.9) g/dL Albumin 4.1 (3.2-5.2) g/dL Globulin 3.2 (2-4) g/dL Albumin/Globulin Ratio 1.3 (1-3) TSH Pending Salicylates Pending Acetaminophen Pending Serum Alcohol Pending Assess/Plan/Problems-Billing Assessment: Mr. Mederos is a 56 yo male with a PMH of ETOH abuse, DM, HTN, HLD, opthalmic migraines, mitral regurgitation, tobacco abuse, obesity and CVA who presented to the ED on 08/29/16 with c/o depression and ETOH abuse and concern for ETOH withdrawal. - Patient Problems (1) Alcohol withdrawal Code(s): F10.239 - ALCOHOL DEPENDENCE WITH WITHDRAWAL, UNSPECIFIED Comment: Has not required supplemental lorazepam since 09/01 Continue WAM qShift Change Librium to TID PRN Continue thiamine and folic acid. [facility], awaiting insurance approval. (2) Alcohol abuse Code(s): F10.10 - ALCOHOL ABUSE, UNCOMPLICATED Comment: Patient reports depression and increased ETOH use, given his social situation. Appreciate psych consult, who recommended inpatient treatment facility [facility] received bed [facility], awaiting insurance approval. (3) Acute kidney injury Code(s): N17.9 - ACUTE KIDNEY FAILURE, UNSPECIFIED Comment: Suspect acute on chronic kidney injury, as creatinine has been elevated in previous admissions. Resolved, creatinine better than baseline. Avoid nephrotoxic medications and renally dose medications as necessary. (4) Epigastric pain Code(s): R10.13 - EPIGASTRIC PAIN Comment: Resolved, continue sucralfate and pantoprazole. May be secondary to alcoholic gastritis. Recommend outpatient follow-up with PCP for further workup. (5) Diabetes Code(s): E11.9 - TYPE 2 DIABETES MELLITUS WITHOUT COMPLICATIONS Comment: Controlled, HgbA1c 7.0 S/p recent gastric sleeve surgery. BG well controlled. Patient wants to continue Lantus, does not like side effects of Glipizide and metformin. He will work on switching to oral hypoglycemics with PCP. Resume Victoza upon discharge. (6) HTN (hypertension) Code(s): I10 - ESSENTIAL (PRIMARY) HYPERTENSION Comment: Normotensive. Continue amlodipine and lisinopril and PRN hydralazine. Monitor closely in presence of ETOH withdrawal. (7) Hyperlipidemia Code(s): E78.5 - HYPERLIPIDEMIA, UNSPECIFIED Comment: Continue home atorvastatin. (8) History of CVA (cerebrovascular accident) Code(s): Z86.73 - PRSNL HX OF TIA (TIA), AND CEREB INFRC W/O RESID DEFICITS Comment: Continue ASA and statin. (9) DVT prophylaxis Code(s): VWQ1103 - Comment: SQ heparin (10) Full code status Code(s): Z78.9 - OTHER SPECIFIED HEALTH STATUS Status and Disposition: Inpatient admission. Anticipate LOS >2 days. Inpatient treatment placement in progress.
[2016-09-03] MEDS ORDERED: Insulin LISPRO* 1 UNITS UNIT SUBCUT SCH (16:30)
--- NOTE | 2016-09-03 16:35 | RAD ---
Indication: Constipation since gastric sleeve bariatric surgery May 2016. Comparison: August 20, 2005 CT abdomen. Technique: Supine abdomen. Report: Obese body habitus limits image quality. Small volume of stool noted in the descending colon. Moderate stool at the level of the rectal vault. No dilated bowel loops evident. Multiple pelvic phleboliths. No suspicious calcifications or mass effect evident. IMPRESSION: Small volume of stool noted in the descending colon. Moderate stool at the level of the rectal vault. No evidence for bowel obstruction.
[2016-09-03] MEDS ORDERED: Bisacodyl SUPP* 10 MG SUPP PR ONE (16:46)
[2016-09-03] MEDS: Insulin GLARGINE(*) 1 UNITS UNIT SUBCUT SCH (19:44)
[2016-09-04 01:26] VITALS: BP 111/51
--- NOTE | 2016-09-04 05:57 | DS ---
DISCHARGE SUMMARY: DATE OF ADMISSION: 08/29/16 DATE OF DISCHARGE: 09/04/16 ATTENDING PHYSICIAN: Anu Byrd MD *(as dictated by Bhargavi Peng NP). CONSULTING PHYSICIAN: Rasheed Gu MD, with Psychiatry. PRIMARY CARE PHYSICIAN: Jon Mena MD. PRIMARY DISCHARGE DIAGNOSES: 1. Alcohol abuse and withdrawal. 2. Epigastric pain, suspect alcoholic gastritis. 3. Acute kidney injury. SECONDARY DISCHARGE DIAGNOSES: 1. Diabetes. 2. Hypertension. 3. Hyperlipidemia. 4. History of cerebrovascular accident. DISCHARGE MEDICATIONS: 1. Actigall 300 mg b.i.d. 2. Thiamine 100 mg daily. 3. MiraLax 17 g daily p.r.n. 4. Zofran ODT 4 mg q.6 hours p.r.n. 5. Protonix 40 mg daily. 6. Multivitamin 1 tablet daily. 7. Zestoretic 1 tablet daily. 8. Victoza 1.8 mg subcutaneously daily. 9. Levemir FlexPen 10 units subcu q.p.m. This is a change in dosing, previously 30 units b.i.d. 10. Colace 100 mg b.i.d. p.r.n. 11. Calcium citrate - vitamin D 1 tablet daily. 12. Wellbutrin SR 150 mg b.i.d. 13. Amlodipine 10 mg q.a.m. 14. Atorvastatin 40 mg daily. 15. Tylenol 650 mg q.4 hours p.r.n. 16. Folic acid 1 mg daily. 17. Ibuprofen 600 mg q.8 hours p.r.n. This is to substitute for Percocet as the patient is unable to take this at the inpatient facility where he is being discharged to. 18. Carafate 1 g before mealtime. This is a new medication. DIAGNOSTIC STUDIES: During this admission, abdominal KUB on 09/03/16 shows small volume of stool noted in the descending colon, moderate at the level of the rectal vault. No evidence for bowel obstruction. HOSPITAL COURSE OF STAY: For full details, please refer to the full H and P and medical records provided by Henrry Beckett NP, on 08/29/16. In summary, Mr. Mederos is a pleasant 56-year-old male patient who carries a history as stated above, who presented to the ED with concerns for depression, alcohol abuse, and alcohol withdrawal. He initially was triaged and evaluated for mental health; however, it was noted that he exhibited vomiting as well as complaints of epigastric pain. He was admitted to the Medicine team for alcohol withdrawal and was started on the withdrawal protocol, was given supportive care with lorazepam and supplemental vitamins and fluids. The patient did relatively well with this regimen and we were able to take the patient off the lorazepam. We also did add Librium to his regimen early on as he became very agitated early on in this admission. This did help him greatly and we were able to wean this down as well. In terms of his epigastric pain, the patient had improvement with the Carafate. It may be beneficial for him to pursue an outpatient endoscopy, which we did discuss, in the future; however, he is off Protonix and other maintenance medications that he will continue in the outpatient setting. In terms of his diabetes, the patient had multiple episodes of hypoglycemia with his Lantus dose. We took him down to 10 units in the evening and he was able to keep his blood sugars in relative control with little need for Lispro sliding scale insulin that was ordered. We discussed moving him to p.o. medications; however, he stated that he did not tolerate metformin or glipizide well and asked to stay on his Lantus and Victoza until he is able to touch base with his PCP. He was unable to be on Victoza while here in the hospital as we did not carry that, but the patient was encouraged to resume this upon discharge. In terms of his acute kidney injury, I suspected this is acute on chronic kidney injury, as he is shown to have previously elevated creatinines in past lab work; however, this has now resolved. The patient likely had acute kidney injury secondary to dehydration. He did have a psychiatric consult while he was here. The psychiatrist recommended that the case management social worker help facilitate a transfer to an inpatient substance abuse rehab facility, as the patient did request this. Psychiatry did not believe that there was any further indication for further antidepressant treatment at this point, as he suspects his mood problem is secondary to alcohol consumption. The patient has been cooperative with care and is very motivated to quit drinking. This evening at 6:20, the patient is alert, oriented. He denies any acute complaints. Denies chest pain and shortness of breath, abdominal pain. He does report occasional nausea but states that it is usually manageable with snacks. He has not required any antiemetics since 08/30/16. He denies tremors. He is eager for discharge tomorrow morning so that he may attend his inpatient facility substance abuse treatment center. The patient will be discharged on the morning of 09/04/16 with a plan to transport himself to [facility] for admission to [facility] substance abuse inpatient [facility]. The patient is medically stable for discharge. We have opted to keep him here as an inpatient until tomorrow morning in order to help mitigate the risk that he will start drinking again prior to admission to [place] as programmed. DIET: Consistent carbohydrate, heart healthy diet. ACTIVITY: As tolerated. CONDITION: Stable. [facility] The patient will self transport. TIME SPENT: Time spent on this discharge was approximately 50 minutes. This is only a brief summary of the patient's hospital course of stay. For full details, please refer to the full medical record. If you have any further questions or need further assistance, please feel free to contact me at [phone]. BHARGAVI PENG NP CC: Jon Mena MD* [id number]/[facility] #: [id number] RAVI
[2016-09-04] MEDS: Omeprazole CAP* 20 MG PO SCH (05:59)
[2016-09-04] MEDS: Heparin VIAL(*) 5000 UNITS/ML VIAL (FIVE THOUSAND) SUBCUT SCH (06:00)
== END 2016-09-04 06:45 | DRG 775 ==
LOC: ED 12:08 → MED 20:10
PROVIDERS: ADMIT Internal Medicine; ATTEND Internal Medicine
DX: F10.239 Alcohol dependence with withdrawal, unspecified (principal); N17.9 Acute kidney failure, unspecified; K29.20 Alcoholic gastritis without bleeding; Y90.6 Blood alcohol level of 120-199 mg/100 ml; E11.9 Type 2 diabetes mellitus without complications; I10 Essential (primary) hypertension; E78.5 Hyperlipidemia, unspecified; E86.0 Dehydration; G43.B0 Ophthalmoplegic migraine, not intractable; I34.0 Nonrheumatic mitral (valve) insufficiency; F17.210 Nicotine dependence, cigarettes, uncomplicated; F10.24 Alcohol dependence with alcohol-induced mood disorder; E66.9 Obesity, unspecified; Z68.37 Body mass index [BMI] 37.0-37.9, adult; Z98.84 Bariatric surgery status; Z79.1 Long term (current) use of non-steroidal anti-inflammatories (NSAID); Z79.899 Other long term (current) drug therapy; Z86.73 Personal history of transient ischemic attack (TIA), and cerebral infarction without residual deficits; Z82.49 Family history of ischemic heart disease and other diseases of the circulatory system; Z83.3 Family history of diabetes mellitus; Z79.84 Long term (current) use of oral hypoglycemic drugs
CPT/HCPCS: 36415; 74000; 80048; 80053; 80076; 80307; 80320; 80329; 81003; 81015; 83036; 83690; 84443; 84484; 85025; 85610; 93005; 94660; 94760; A9270-GY; G0480; J0360; J1644; J2060; J2405

== ENCOUNTER 2019-08-16 15:16 | Inpatient (IN) | payer SELFPAY ==
--- NOTE | 2019-08-16 15:21 | ED ---
Influenza-Like Illness - HPI Summary HPI Summary: Patient is a 59 y/o M presenting to the ED via EMS for a chief complaint of influenza-like symptoms. Patient reports generalized weakness, chest pain, cough , and rhinorrhea. The chest pain initially began 2 weeks ago and has been intermittent since initial onset. Patient denies fever or chills. No aggravating or alleviating factors are noted. Patient is a former smoker and quit using tobacco 1 weeks ago. He admits occasional alcohol use, but denies drug use. PMHx is significant for diabetes mellitus and gastroesophageal reflux disease. - History of Current Complaint Chief Complaint: EDFluSymptoms Time Seen by Provider: 08/16/19 15:20 Hx Obtained From: Patient Onset/Duration: Sudden Onset, Still Present Severity: Moderate Associated Signs & Symptoms: Cough - Allergy/Home Medications Allergies/Adverse Reactions: Allergies Allergy/AdvReac Type Severity Reaction Status Date / Time No Known Allergies Allergy Verified 12/06/15 11:17 Home Medications: Home Medications Atorvastatin* [Lipitor*] 40 mg PO DAILY 08/16/19 [History Confirmed 08/16/19] Calcium Citrate/Vitamin D3 [Calcium Citrate W/D] 1 tab PO DAILY 08/16/19 [ History Confirmed 08/16/19] Docusate CAP* [Colace Cap*] 100 mg PO BID PRN 08/16/19 [History Confirmed ] Folic Acid TAB* [Folvite TAB*] 1 mg PO DAILY 08/16/19 [History Confirmed ] Insulin Glargine,Hum.rec.anlog [Lantus Solostar 100 units/ml 3 ml x 5 PENS] 20 units SUBCUT DAILY 08/16/19 [History Confirmed 08/16/19] Lisinopril/HCTZ 20/25(NF) [Zestoretic 20/(NF)] 1 tab PO DAILY 08/16/19 [ History Confirmed 08/16/19] Pantoprazole TAB * [Protonix TAB*] 40 mg PO DAILY 08/16/19 [History Confirmed ] Pediatric Multivitamin No.101 [Gummy] 1 tab.chew PO DAILY 08/16/19 [History Confirmed 08/16/19] Sucralfate TAB* [Carafate*] 1 gm PO AC 08/16/19 [History Confirmed 08/16/19] Thiamine TAB* [Vitamin B-1 TAB*] 100 mg PO DAILY 08/16/19 [History Confirmed 09/30] amLODIPine TAB* [Norvasc 5 mg TAB*] 10 mg PO DAILY 08/16/19 [History Confirmed 08/16/19] oxyCODONE/Acetamin 5/325 MG* [Percocet 5/325 TAB*] 1 tab PO DAILY PRN 08/16/19 [ History Confirmed 08/16/19] PMH/Surg Hx/FS Hx/Imm Hx Previously Healthy: Yes Endocrine/Hematology History: Reports: Hx Diabetes Denies: Hx Thyroid Disease Cardiovascular History: Reports: Other Cardiovascular Problems/Disorders - mitral valve regurgitation Denies: Hx Congestive Heart Failure, Hx Deep Vein Thrombosis, Hx Hypertension , Hx Myocardial Infarction, Hx Pacemaker/ICD Respiratory History: Reports: Hx Sleep Apnea - uses CPAP at night Denies: Hx Asthma, Hx Chronic Obstructive Pulmonary Disease (COPD), Hx Lung Cancer, Hx Pneumonia, Hx Pulmonary Embolism GI History: Reports: Hx Gastroesophageal Reflux Disease Denies: Hx Gall Bladder Disease, Hx Gastrointestinal Bleed, Hx Ulcer, Hx Urosepsis History: Denies: Hx Kidney Stones, Hx Renal Disease Musculoskeletal History: Reports: Hx Orthopedic Injury - right knee Sensory History: Reports: Hx Contacts or Glasses Denies: Hx Legally Blind, Hx Deafness, Hx Hearing Aid Opthamlomology History: Reports: Hx Contacts or Glasses Denies: Hx Legally Blind EENT History: Denies: Hx Deafness Neurological History: Denies: Hx Dementia, Hx Migraine, Hx Seizures, Hx Transient Ischemic Attacks (TIA) Psychiatric History: Reports: Hx Substance Abuse Denies: Hx Anxiety, Hx Depression, Hx Panic Disorder, Hx Schizophrenia, Hx Bipolar Disorder - Surgical History Surgical History: Yes Surgery Procedure, Year, and Place: [facility]NEE ortho sx in past meniscus/a ligament; achilles tendon repair. Hx Anesthesia Reactions: No Infectious Disease History: No Infectious Disease History: Denies: Hx Clostridium Difficile, Hx Hepatitis, Hx Human Immunodeficiency Virus (HIV), Hx of Known/Suspected MRSA, Hx Shingles, Hx Tuberculosis, Hx Known/ Suspected VRE, Hx Known/Suspected VRSA, History Other Infectious Disease, Traveled Outside the [place] in Last 30 Days - Family History Known Family History: Positive: Cardiac Disease, Renal Disease - Social History Occupation: Unemployed Alcohol Use: Daily Alcohol Amount: small amount daily Hx Substance Use: No Substance Use Type: Reports: None Substance Use Comment - Amount & Last Used: last drink 08/29/16 at 1000 Hx Tobacco Use: Yes Smoking Status (MU): Former Smoker Type: Cigarettes Review of Systems Negative: Fever, Chills Positive: Nasal Discharge Positive: Chest Pain Positive: Cough Positive: Weakness - Generalized All Other Systems Reviewed And Are Negative: Yes Physical Exam - Summary Physical Exam Summary: VITAL SIGNS: Reviewed. GENERAL: Patient is a well-developed and nourished male who is lying comfortable in the stretcher. Patient is not in any acute respiratory distress. HEAD AND FACE: No signs of trauma. No ecchymosis, hematomas or skull depressions. No sinus tenderness. EYES: PERRLA, EOMI x 2, No injected conjunctiva, no nystagmus. EARS: Hearing grossly intact. Ear canals and tympanic membranes are within normal limits. MOUTH: Dry oral mucosa, otherwise, oropharynx within normal limits. NECK: Supple, trachea is midline, no adenopathy, no JVD, no carotid bruit, no c- spine tenderness, neck with full ROM. CHEST: Symmetric, no tenderness at palpation. LUNGS: Clear to auscultation bilaterally. No wheezing or crackles. CVS: Regular rate and rhythm, S1 and S2 present, no murmurs or gallops appreciated. ABDOMEN: Soft, non-tender. No signs of distention. No rebound, no guarding, and no masses palpated. Bowel sounds are normal. EXTREMITIES: FROM in all major joints, no edema, no cyanosis or clubbing. NEURO: Alert and oriented x 3. No acute neurological deficits. Speech is normal and follows commands. Tremors. SKIN: Dry and warm. Increased turgor. Triage Information Reviewed: Yes Vital Signs On Initial Exam: Initial Vitals Temp Pulse Resp BP Pulse Ox 98.0 F 92 18 126/71 98 08/16/19 15:17 08/16/19 15:17 08/16/19 15:17 08/16/19 15:17 08/16/19 15:17 Vital Signs Reviewed: Yes Procedures - Sedation Patient Received Moderate/Deep Sedation with Procedure: No Diagnostics - Vital Signs Vital Signs Temp Pulse Resp BP Pulse Ox 08/16/19 15:17 98.0 F 92 18 126/71 98 - Laboratory Result Diagrams: 08/16/19 15:32 08/16/19 15:32 Lab Statement: Any lab studies that have been ordered have been reviewed, and results considered in the medical decision making process. - Radiology Chest X-ray Radiology Interpretation Completed By: Radiologist Summary of Radiographic Findings: Chest X-ray IMPRESSION: NO ACTIVE CARDIOPULMONARY DISEASE. Reviewed by Dr. Barragan. - EKG 15:23 Cardiac Rate: NL - 96 BPM EKG Rhythm: Sinus Rhythm ST Segment: Normal Ectopy: None Summary of EKG Findings: EKG at 15:23 shows normal sinus rhythm with 96 BPM, no ST elevations. Reviewed and interpreted by Dr. Barragan. Flu Symptom Course/Dx - Course Assessment/Plan: Patient is a 59 y/o M presenting to the ED via EMS for a chief complaint of influenza-like symptoms. Patient reports generalized weakness, chest pain, cough, and rhinorrhea. The chest pain initially began 2 weeks ago and has been intermittent since initial onset. Patient denies fever or chills. No aggravating or alleviating factors are noted. Patient is a former smoker and quit using tobacco 1 weeks ago. He admits occasional alcohol use, but denies drug use. PMHx is significant for diabetes mellitus and gastroesophageal reflux disease. In the ED course, the patient was placed on a bilingual speech language pathologist, IV access was obtained, and IV fluids started. Patient was given an aspirin since he was complaining of chest pain. After being given the aspirin, the chest pain resolved. Therefore the patient was not given nitroglycerin. Blood tests are w/o any significant abnormality except for slight anemia with hemoglobin of 11.5 and hematocrit 34, sodium 132, potassium was 3.4, chloride 99, carbon dioxide is 14, anion gap is 19, BUN is 32, creatinine 1.63, glucose 221, increase in LFTs, troponin 0.03. Influenza A and B is negative. EKG shows a normal sinus rhythm without any ST elevation. Chest x-ray shows no acute pathology. Patient is having nausea and tremors therefore the patient was given Ativan to prevent alcohol withdrawal and Zofran for nausea and vomiting. The patient also will be given a banana bag. I discussed my physical exam findings and test results with Dr. Leavitt from the hospitalist services and she agrees to admit the patient to her services. The patient is hemodynamically stable, and alert and oriented x 3. - Diagnoses Provider Diagnoses: Chest pain, Elevated troponin, Renal failure, Acidosis - Physician Notifications Discussed Care Of Patient With: Anu Leavitt - At 17:19, Dr. Anu Leavitt reviewed the patients case and agrees to admit the patient to [facility]. Time Discussed With Above Provider: 17:19 Instructed by Provider To: Admit As Inpatient Discharge ED - Sign-Out/Discharge Documenting (check all that apply): Patient Departure - Admit - Discharge Plan Condition: Stable Disposition: ADMITTED TO [facility] - Billing Disposition and Condition Condition: STABLE Disposition: Admitted to [facility] - Attestation Statements Document Initiated by Scribe: Yes Documenting Scribe: Edilma Sweet Provider For Whom Scribe is Documenting (Include Credential): Chuy Barragan MD Scribe Attestation: Edilma Wilhelm scribed for Chuy Barragan MD on 08/16/19 at 2144. Scribe Documentation Reviewed: Yes Provider Attestation: The documentation as recorded by the Edilma otto accurately reflects the service I personally performed and the decisions made by Chuy barriga MD Status of Scribe Document: Viewed
[2019-08-16 15:38] LABS: ABS Lymphocytes 0.6 10^3/ul (1.0-4.8); ABS Monocytes 0.6 10^3/ul (0-0.8); ABS Neutrophils 3.9 10^3/ul (1.5-7.7); Eosinophil % 0.2 %; Hematocrit 34 % (42-52); Hemoglobin 11.5 g/dL (14.0-18.0); Lymphocyte % 11.1 %; Mean Corpuscular HGB Conc 34 g/dL (31-36); Mean Corpuscular Hemoglobin 34 pg (27-31); Mean Corpuscular Volume 101 fL (80-94); Mean Platelet Volume 7.4 fL (7.4-10.4); Nucleated Red Blood Cells % 0.7; Platelet Count 188 10^3/uL (150-450); Red Blood Count 3.34 10^6 /uL (4.18-5.48); Red Cell Distribution Width 14 % (10-15)
[2019-08-16 15:54] LABS: Influenza A Molecular Negative (Negative); Influenza B Molecular Negative (Negative)
[2019-08-16 15:55] LABS: ALT 85 U/L (7-52); AST 84 U/L (13-39); Albumin 3.6 g/dL (3.2-5.2); Albumin/Globulin Ratio 1.3 (1-3); Alkaline Phosphatase 55 U/L (34-104); BUN/Creatinine Ratio 19.6 (8-20); Blood Urea Nitrogen 32 mg/dL (6-24); Calcium 8.7 mg/dL (8.6-10.3); Chloride 99 mmol/L (101-111); Creatine Kinase 66 U/L (10-223); EGFR African American 52.7 (>60); EGFR Non-African American 43.5 (>60); Globulin 2.7 g/dL (2-4); Glucose 221 mg/dL (70-100); Magnesium 1.6 mg/dL (1.9-2.7); Potassium 3.4 mmol/L (3.5-5.0); Sodium 132 mmol/L (135-145); Total Protein 6.3 g/dL (6.4-8.9)
[2019-08-16 15:57] LABS: Anion Gap 19 mmol/L (2-11); CO2 Carbon Dioxide 14 mmol/L (22-32)
[2019-08-16 15:58] LABS: Troponin I 0.03 ng/mL (<0.03)
[2019-08-16] MEDS ORDERED: NS 0.9% 1000 ML** 1,000 ML IV ONE (15:59)
[2019-08-16] MEDS ORDERED: Aspirin 81 mg CHEW TAB* 81 MG TAB.CHEW PO ONE (15:59)
[2019-08-16 16:00] LABS: CKMB ng/mL 2.6 ng/mL (0.6-6.3)
[2019-08-16] MEDS ORDERED: LORazepam INJ* 2 MG/ML 1 ML VIAL IV PUSH ONE (16:44)
[2019-08-16] MEDS ORDERED: Lorazepam PYXIS KEY PRN (16:44)
[2019-08-16] MEDS ORDERED: Ondansetron INJ* 2 MG/ML VIAL IV ONE (16:44)
[2019-08-16] MEDS ORDERED: Magnesium Sulfate 1 GM IV* 1 GM/100 ML BAG IV ONE ×2 (16:46→18:20)
[2019-08-16] MEDS ORDERED: Potassium Chlor TAB* 20 MEQ TAB.ER PO ONE (16:46)
[2019-08-16 16:48] LABS: TSH (Thyroid Stimulating Horm) 1.73 mcIU/mL (0.34-5.60)
[2019-08-16] MEDS ORDERED: Thiamine IV 100 MG, Folic Acid IV* 1 MG, Multiple Vitamin IV ADULT* 10 ML in NS 0.9% 10... IV ONE (17:22)
[2019-08-16] MEDS ORDERED: Ondansetron INJ* 2 MG/ML VIAL IV PRN (18:23)
[2019-08-16] MEDS ORDERED: Al Hydrox/Mg Hydrox/Simet LIQ* 30 ML UDC PO PRN (18:23)
[2019-08-16 18:51] LABS: Troponin I 0.03 ng/mL (<0.03)
[2019-08-16] MEDS ORDERED: Dextrose 50% Syringe 50 ML* 25 GM/50 ML SYRINGE IV PUSH PRN (19:08)
[2019-08-16] MEDS: Enoxaparin(*) 40 MG/0.4 ML SYR SUBCUT SCH (19:42)
[2019-08-16] MEDS ORDERED: LORazepam INJ* 2 MG/ML 1 ML VIAL IV PUSH SCH (20:00)
[2019-08-16] MEDS ORDERED: Diazepam TAB(*) 10 MG PO SCH ×2 (20:00)
[2019-08-16] MEDS ORDERED: Lactated Ringers 1000 ML Bag* 1,000 ML IV SCH ×2 (20:00)
[2019-08-16 20:31] LABS: Alcohol < 10 mg/dL (<10)
[2019-08-16] MEDS ORDERED: Lactated Ringers 1000 ML Bag* 1,000 ML IV ONE (21:00)
[2019-08-16] MEDS: Diazepam TAB(*) 10 MG PO SCH (22:48)
--- NOTE | 2019-08-16 22:59 | HP ---
CC: Dr. Mena * HISTORY AND PHYSICAL: DATE OF ADMISSION: 08/16/19 PROVIDER: DAVIS Vieyra. ATTENDING PHYSICIAN WHILE IN THE HOSPITAL: Dr. Jessica Thomas * (dictated by DAVIS Vieyra). PRIMARY CARE PROVIDER: Dr. Mena. CHIEF COMPLAINT: Intermittent chest pain and dyspnea on exertion x2 weeks. HISTORY OF PRESENT ILLNESS: Tee Mederos is a 59-year-old black male with past medical history significant for diabetes mellitus type 2, hypertension, hyperlipidemia, mitral valve regurgitation, prior tobacco use, alcohol use, and history of prior CVAs, who presents to emergency department today for dyspnea on exertion and intermittent chest pain x2 weeks. The patient also has other ongoing lots of complaints that have been ongoing for the last week or sometimes months; however, he does feel like this intermittent chest pain and dyspnea on exertion all became more obvious to him when approximately 2 weeks ago, he had a presyncopal event where he started to fall, but then caught himself. However, he has caught himself on a glass coffee table and fell through the coffee table and then hit his head and he did not seek medical attention for this. Since then, he has been feeling lightheaded frequently and he has been having blurred vision that has been increasingly worse over the last month. He additionally tells me he vomits almost daily once in the morning and he has been having worsening heartburn. He does not have abdominal pain or nausea at this time. No change in his bowel habits. He denies cough, but does feel like he has had some nasal congestion for the last several days. He denies fever, chills. He feels generally weak, but not unilaterally. Of note, he has not been taking his medications for the last approximately 1 year, but he does take his Lantus once a week. He tells me he has not seen his primary care provider in over a year and he tells me stopped taking these medications because he is not being able to afford them and he did recently lose his job about 2 months ago. He has been drinking daily and his last drink was approximately 11 p.m. yesterday. He tells me has had a tremor in both hands for over a year and he is unsure if he has ever been diagnosed with essential tremor. The patient tells me he has been having some neuropathy to all of fingers for approximately a year. PAST MEDICAL HISTORY: 1. Diabetes mellitus, type 2. 2. Hypertension. 3. Hyperlipidemia. 4. Migraines. 5. Mitral regurgitation. 6. History of tobacco use. 7. Obesity. 8. CVA. 9. Alcohol use. 10. GERD. PAST SURGICAL HISTORY: 1. Gastric sleeve in May of 2016. 2. Right knee surgery x3. 3. Achilles tendon repair. MEDICATIONS: 1. Calcium and vitamin D 1 tab p.o. daily. 2. Multivitamin 1 tab p.o. daily. 3. Oxycodone/acetaminophen 5 mg/325 mg 1 tab p.o. daily p.r.n. pain. 4. Amlodipine 10 mg p.o. daily. 5. Thiamine 100 mg p.o. daily. 6. Lipitor 40 mg p.o. daily. 7. Lisinopril 20 mg/hydrochlorothiazide 25 mg 1 tab p.o. daily. 8. Pantoprazole 40 mg p.o. daily. 9. Carafate 1 g p.o. a.c. 10. Insulin 20 units subcu daily. 11. Folic acid 1 mg p.o. daily. 12. Colace 100 mg p.o. b.i.d. p.r.n. constipation. 13. Ibuprofen 600 mg p.o. q.8 hours p.r.n. pain. 14. Tylenol 650 mg p.o. q.4 hours p.r.n. pain. Of note, as previously mentioned, the patient has not been taking any of these medications except for the Lantus that he uses 1 per week and p.r.n. ibuprofen or Tylenol. ALLERGIES: No known drug allergies. FAMILY HISTORY: Father is living at age 82 with a history of prostate cancer. Mother had in her 70s, she had a history of coronary artery disease and diabetes. 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 He is not and has no children. He lives alone. He quit smoking 10 days ago and prior to that he was smoking for approximately 25 years at 1 pack per day. He drinks 1.5 L of vodka per day and denies illicit drug use. REVIEW OF SYSTEMS: An 11-point review of systems was completed. All pertinent positives and negatives are above in the HPI. All other systems are negative. PHYSICAL EXAMINATION GENERAL: Obese, back male lying in hospital bed, appearing comfortable in no acute distress. Tremulous in his upper extremities. VITAL SIGNS: Temperature 98.0, heart rate 92, respiratory rate 18, oxygen saturation 98% on room air, blood pressure 126/71. HEENT: Eyes: PERRL. Sclerae anicteric. EOMI. ENT: Lips appear dry. LUNGS: Clear to auscultation throughout. CARDIO: Regular rate and rhythm without murmurs, rubs or gallops. ABDOMEN: Soft, nontender, nondistended. EXTREMITIES: No clubbing, cyanosis or edema. NEURO: The patient is alert and oriented x3. No focal deficits. Able to to move all extremities. Sensation is diminished in all fingertips. Strength is 4 /5 in bilateral demonstrator electric gas appliances strength and 5/5 dorsiflexion and plantar flexion. There was concern for flapping tremor in his left lower extremity. SKIN: Warm, dry and intact. DIAGNOSTIC STUDIES/LAB DATA: White blood cell count 5, hemoglobin 11.5, hematocrit 34, platelet count 188. Sodium 132, potassium 3.4, chloride 99, carbon dioxide 14, anion gap 19, BUN 32, creatinine 1.63, glucose 221, lactic acid 1.4, calcium 8.7, magnesium 1.6, total bili 1, AST 84, ALT 85, alk phos 55. Troponin 0.03 x2. CK-MB 2.6. BNP 36. TSH 1.7. Influenza A and B negative. ABG pH 7.36, ABG pCO2 of 21, ABG pO2 of 101, ABG bicarb 16.1, ABG O2 sat 99.4. Chest x-ray: No active cardiopulmonary disease. EKG: Rhythm appears to be atrial bigemini, rate 96 beats per minute. No ST elevations or depressions. Q waves are flattened in V1, which is consistent with prior EKG in 2017. ASSESSMENT AND PLAN: Tee Mederos a 59-year-old black male who has past medical history of diabetes mellitus type 2, hypertension, hyperlipidemia, prior history of tobacco use, cerebrovascular accident, who has been nonadherent to his medications, presents to emergency department with intermittent chest pain and dyspnea on exertion. The patient will be admitted inpatient for: 1. Chest pain. The patient does have a minimally elevated troponin to 0.03 and I will continue to monitor this. At this time, there are no EKG changes and it is possible that this may not represent acute coronary syndrome, potentially ischemic demand in the setting of dehydration and alcohol withdrawal. We will monitor him on telemetry and perform an echocardiogram, especially considering his dyspnea on exertion and a stress test will be ordered for tomorrow as well. An additional troponin will be checked. 2. Alcohol withdrawal. The patient has already started demonstrating symptoms of alcohol withdrawal. He states his last drink was yesterday at 11 p.m.. It has been approximately 20 hours since his last drink and he is tremulous and tachycardic. I have ordered a WAM protocol with p.r.n. Ativan as well as scheduled Valium. I believe that his multiple electrolyte abnormalities are related to this as well. 3. Decompensated metabolic anion gap acidosis. The patient's ABG demonstrates pH with normal limits, but the patient has a low bicarb and anion gap of 19 and I suspect it is possibly prerenal related to dehydration and has then progressed to renal tubular acidosis. However, if his bicarb is not improved tomorrow, then an ABG should be repeated again. 4. Acute kidney injury. I suspect that the patient has an acute kidney injury. We do not have great lab data, though in the past he has had an elevated creatinine, though he has had normal creatinine as well in the past 2017. At this point, given the renal log data, I assume this as an acute kidney injury and I am going to give additional fluid as well as running normal saline at 100 cc per hour with 1 L of bolus prior to that. He has not been taking any of his medications at home, but I will hold his lisinopril. 5. Hypertension. The patient is normotensive. I will be holding his lisinopril as previously mentioned, but I will continue his amlodipine. 6. History of cerebrovascular accident. The patient has not been taking his baby aspirin daily and I will continue this while he is in the hospital as well as continue his statin. 7. Diabetes. I am checking the patient's hemoglobin A1c. He has been nonadherent to his Lantus and I believe this is causing peripheral neuropathy as well. I will order fingersticks and lispro sliding scale. 8. Gastroesophageal reflux disease. I will continue the patient's home pantoprazole and sucralfate. 9. DVT prophylaxis. The patient has DVT risk score of 2 and the patient will be on Lovenox 30 mg subcu daily. 10. Code status. The patient is a full code. TIME SPENT: Approximately 50 minutes was spent on this admission, approximately half of the time was spent at bedside evaluating the patient and discussing plan of care. This case has been reviewed by my attending, Dr. Jessica Thomas and she agrees with this plan of care. She did assess this patient at bedside and believed what I thought was a flapping tremor was an essential tremor and if this is worsening, then we should consider toxic metabolic encephalopathy. DAVIS VIEYRA [id number]/CPS #: [id number] MTDD
[2019-08-17] MEDS: Enoxaparin(*) 40 MG/0.4 ML SYR SUBCUT SCH ×3 (00:14→21:32)
[2019-08-17] MEDS: LORazepam INJ* 2 MG/ML 1 ML VIAL IV PUSH SCH ×3 (00:34→20:29)
[2019-08-17 06:00] LABS: ABS Lymphocytes 0.8 10^3/ul (1.0-4.8); ABS Monocytes 0.5 10^3/ul (0-0.8); ABS Neutrophils 2.2 10^3/ul (1.5-7.7); Eosinophil % 0.5 %; Hematocrit 29 % (42-52); Lymphocyte % 22.5 %; Mean Corpuscular HGB Conc 34 g/dL (31-36); Mean Corpuscular Hemoglobin 34 pg (27-31); Mean Corpuscular Volume 101 fL (80-94); Mean Platelet Volume 7.6 fL (7.4-10.4); Nucleated Red Blood Cells % 0.7; Platelet Count 149 10^3/uL (150-450); Red Cell Distribution Width 14 % (10-15); White Blood Count 3.6 10^3/uL (3.5-10.8)
[2019-08-17 06:18] LABS: ALT 67 U/L (7-52); AST 60 U/L (13-39); Albumin 3.1 g/dL (3.2-5.2); Albumin/Globulin Ratio 1.3 (1-3); Alkaline Phosphatase 46 U/L (34-104); BUN/Creatinine Ratio 21.5 (8-20); Blood Urea Nitrogen 37 mg/dL (6-24); Calcium 7.9 mg/dL (8.6-10.3); Chloride 104 mmol/L (101-111); Cholesterol 151 mg/dL; EGFR African American 49.5 (>60); EGFR Non-African American 40.9 (>60); Globulin 2.3 g/dL (2-4); Glucose 169 mg/dL (70-100); HDL Cholesterol 61.9 mg/dL; LDL Cholesterol 67 mg/dL; Potassium 3.3 mmol/L (3.5-5.0); Sodium 133 mmol/L (135-145); Total Protein 5.4 g/dL (6.4-8.9); Triglycerides 110 mg/dL
[2019-08-17 06:23] LABS: Anion Gap 16 mmol/L (2-11); CO2 Carbon Dioxide 13 mmol/L (22-32)
[2019-08-17] MEDS: Insulin LISPRO* 1 UNITS UNIT SUBCUT SCH ×3 (08:13→17:34)
[2019-08-17] MEDS ORDERED: Lactated Ringers 1000 ML Bag* 1,000 ML IV SCH (08:33)
[2019-08-17] MEDS ORDERED: Potassium Chlor TAB* 20 MEQ TAB.ER PO ONE (08:34)
--- NOTE | 2019-08-17 08:47 | PN ---
Subjective Date of Service: 08/17/19 Interval History: No acute events overnight. Admitted yesterday for chest pressure with troponin 0.03. Pending TTE and stress test. Being treated for alcohol withdrawal. On [facility] protocol, IVF. Has anion gap metabolic acidosis - possibly from ketones? UA pending. Holding HCTZ in setting of electrolyte abnormalities and need for IVF. Pt feels hungry and wants to eat. Also reporting occasional heart burn. Hasn't urinated since yesterday due to "shyness". Denies CP, SOB, abd pain. Objective Active Medications: Acetaminophen (Tylenol Tab*) 650 mg PO Q4H PRN PRN Reason: MILD PAIN or TEMP > 100.4 Al Hydrox/Mg Hydrox/Simethicone (Maalox Plus*) 30 ml PO Q6H PRN PRN Reason: INDIGESTION Amlodipine Besylate (Norvasc Tab*) 10 mg PO DAILY [facility] Aspirin (Aspirin 81 Mg Chew Tab*) 81 mg PO DAILY [facility] Atorvastatin Calcium (Lipitor*) 40 mg PO DAILY [facility] Dextrose (D50w Syringe 50 Ml*) 12.5 gm IV PUSH .FOR FS < 60 - SS PRN PRN Reason: FS < 60 Enoxaparin Sodium (Lovenox(*)) 40 mg SUBCUT Q24H [facility] Last Admin: 08/17/19 00:14 Dose: 40 mg Folic Acid (Folvite Tab*) 1 mg PO DAILY [facility] Lactated Ringer's (Lactated Ringers 1000 Ml Bag*) 1,000 mls @ 200 mls/hr IV PER RATE [facility] Influenza Virus Vaccine (Fluarix Quad [id number] Syr) 0.5 ml IM .ONCE ONE Stop: 08/17/19 09:01 Insulin Human Lispro (Humalog*) 0 units SUBCUT AC [facility]; Protocol Last Admin: 08/17/19 08:13 Dose: Not Given Lorazepam (Ativan Inj*) 0 - 3 mg IV PUSH .PER [facility] PROTOCOL [facility]; Protocol Last Admin: 08/17/19 00:34 Dose: 1.5 mg Miscellaneous (Ativan Pyxis Jacobs) 1 ea N/A .ATIVAN IV JACOBS PRN PRN Reason: PYXIS JACOBS Multivitamins/Minerals (Theragran/Minerals Tab*) 1 tab PO DAILY [facility] Ondansetron HCl (Zofran Inj*) 4 mg IV Q4H PRN PRN Reason: NAUSEA/VOMITING Pantoprazole Sodium (Protonix Tab*) 40 mg PO DAILY [facility] Pneumococcal Polyvalent Vaccine (Pneumococcal Vac 23-Polyvalent*) 0.5 ml IM .ONCE ONE Stop: 08/17/19 09:01 Senna (Senokot 8.6 Mg Tab*) 1 tab PO BID PRN PRN Reason: CONSTIPATION Sucralfate (Carafate*) 1 gm PO AC [facility] Thiamine HCl (Vitamin B-1 Tab*) 100 mg PO DAILY [facility] Vital Signs - 8 hr 08/17/19 08/17/19 08/17/19 01:09 02:09 02:18 Temperature 97 F Pulse Rate 62 Respiratory 18 18 18 Rate Blood Pressure 120/73 (mmHg) O2 Sat by Pulse 100 Oximetry 08/17/19 08/17/19 04:29 08:00 Temperature 97.7 F Pulse Rate 89 Respiratory 18 18 Rate Blood Pressure 147/80 (mmHg) O2 Sat by Pulse 100 Oximetry Oxygen Devices in Use Now: None Appearance: well appearing, NAD, calm and cooperative Eyes: No Scleral Icterus Ears/Nose/Mouth/Throat: Clear Oropharnyx, Mucous Membranes Moist, - - mild tongue fasciculations Neck: NL Appearance and Movements; NL JVP, Trachea Midline Respiratory: Symmetrical Chest Expansion and Respiratory Effort, Clear to Auscultation Cardiovascular: NL Sounds; No Murmurs; No JVD, RRR Abdominal: NL Sounds; No Tenderness; No Distention, No Hepatosplenomegaly Extremities: No Edema, - - intention hand tremor b/l; no asterixis Skin: No Rash or Ulcers Neurological: Alert and Oriented x 3 Result Diagrams: 08/17/19 05:19 08/17/19 14:54 Assess/Plan/Problems-Billing Assessment: 59M with alcohol use disorder, DM2, HTN, migraines, mitral regurg, obesity, CVA , GERD, off all meds, presents with progressive chest pain and DIAS for 2 weeks, found with trop 0.03, without concerning EKG findings. Also in alcohol withdrawal on [facility] protocol. - Patient Problems (1) Chest pain Comment: CP not typical but has multiple risk factors. - pending nuc stress and TTE - cont aspirin and statin (2) Alcohol withdrawal Comment: - cont [facility] protocol with lorazepam, also s/p Librium PO - continue thiamine and folic acid - SW consult (3) Metabolic acidosis Comment: Elevated anion gap. Suspect ketoacidosis in setting of alcohol abuse and poor PO. - eating now, on IVF and improving - monitor BMP (4) Acute kidney injury Comment: Unknown baseline creatinine, so may not be SAMMY. Likely CKD. - continue IVF and monitor response - encourage UOP (see below - pt not peeing unless encouraged) - avoid nephrotoxic medications and renally dose medications - pending outside records for baseline BMP - will likely re-start lisinopril (5) Epigastric pain Comment: Likely alcoholic gastritis. - restart home sucralfate and pantoprazole. (6) Diabetes Comment: A1c 7.3% off all meds for one year. S/p gastric sleeve surgery. - short-acting ISS for now - previously refused metformin; tolerated Victoza - carb control (7) HTN (hypertension) Comment: - cont home amlodipine 10mg daily - hold home lisinopril for now, although I do not think this is SAMMY (trying to obtain recent PCP lab values); likely restart this if BPs are elevated - hold home HCTZ 25mg in setting of electrolyte abnormalities (8) Urinary retention Comment: Pt reports no UOP because is is "shy". Noted to retain 450 mL. Finally able to urinate when encouraged. Denies weak stream, feeling like he cannot empty bladder. Does not strain. - cont to encourage - if unable to maintain UOP while on IVF, will place Strong (9) History of CVA (cerebrovascular accident) Comment: Continue ASA and statin. (10) DVT prophylaxis Comment: SQ heparin
[2019-08-17] MEDS ORDERED: Lisinopril TAB* 10 MG PO SCH (09:00)
[2019-08-17] MEDS ORDERED: Atorvastatin* 40 MG TAB PO SCH (09:00)
[2019-08-17] MEDS ORDERED: Influenza VAC *QUAD* 2019-20* 0.5 ML SYRINGE IM ONE (09:00)
[2019-08-17] MEDS ORDERED: Pneumococcal *Vac Polyvalent 0.5 ML VIAL IM ONE (09:00)
[2019-08-17] MEDS ORDERED: Hydrochlorothiazide TAB* 25 MG PO SCH (09:00)
[2019-08-17 09:31] LABS: Folate > 20.00 ng/mL (>3.99)
[2019-08-17] MEDS: Sucralfate TAB* 1 GM PO SCH ×3 (09:32→17:33)
[2019-08-17] MEDS: Diazepam TAB(*) 10 MG PO SCH (10:46)
[2019-08-17] MEDS: Thiamine TAB* 100 MG TAB PO SCH (11:05)
[2019-08-17] MEDS: amLODIPine TAB* 5 MG PO SCH (11:05)
[2019-08-17] MEDS: Pantoprazole TAB * 40 MG TAB PO SCH (11:05)
[2019-08-17] MEDS: Folic Acid TAB* 1 MG PO SCH (11:05)
[2019-08-17] MEDS: Atorvastatin* 40 MG TAB PO SCH (11:05)
[2019-08-17] MEDS: Aspirin 81 mg CHEW TAB* 81 MG TAB.CHEW PO SCH (11:06)
[2019-08-17] MEDS: Multivitamins/Minerals TAB PO SCH (11:06)
[2019-08-17] MEDS ORDERED: Aminophylline IV* 25 MG/ML 10 ML VIAL ONE (11:42)
[2019-08-17] MEDS ORDERED: Regadenoson* 0.4 MG/5 ML SYRINGE ONE ×2 (11:42→11:43)
[2019-08-17 12:03] LABS: Urine Potassium Concentration 37.4 mmol/L
[2019-08-17 12:19] LABS: Urine Appearance Clear; Urine Bilirubin Negative (Negative); Urine Blood 1+ (Negative); Urine Color Amber; Urine Glucose 1+(50 mg/dL) (Negative); Urine Ketones 1+ (Negative); Urine Nitrite Negative (Negative); Urine Protein 2+(100 mg/dL) (Negative); Urine Specific Gravity 1.021 (1.010-1.030); Urine Urobilinogen Positive (Negative)
[2019-08-17 12:30] LABS: Urine Bacteria Absent (Absent); Urine Red Blood Cell Trace(0-2/hpf) (Absent); Urine White Blood Cell Absent (Absent)
[2019-08-17] MEDS ORDERED: Perflutren Lipid Microsphere* 3 ML VIAL ONE (12:57)
[2019-08-17 13:23] LABS: Urine Creatinine Concentration 257.31 mg/dL
[2019-08-17] MEDS ORDERED: chlordiazePOXIDE CAP* 25 MG PO ONE (14:56)
[2019-08-17] MEDS: Acetaminophen TAB* 325 MG PO PRN ×2 (15:24→20:28)
[2019-08-17 15:36] LABS: BUN/Creatinine Ratio 21.2 (8-20); Calcium 8.6 mg/dL (8.6-10.3); EGFR African American 50.2 (>60); EGFR Non-African American 41.5 (>60); Potassium 3.6 mmol/L (3.5-5.0)
--- NOTE | 2019-08-17 16:46 | ECHO ---
*[facility]* [place] [address] Fax #: [phone] Transthoracic Echocardiogram Patient: Tee Mederos : 1960 Study Date: 08/17/2019 Age: 59 Gender: M HR: 91 bpm Height: 75 in /190.5 cm BSA: 2.44 m^2 Weight: 255.5 lb /116.1 kg BMI: 32 kg/m^2 *[employer] Operations Supervisor: * Maria Esther Benson RDCS RN *Referring Physician: * O'Juliet Galvan *Reading Physician: * Thierno Ponce MD Indications: SOB. History: Risk factors: Hypertension. Diabetes mellitus. Obese. Dyslipidemia. Conclusions Summary: - Left ventricle: The cavity size is normal. Wall thickness is moderately increased. Systolic function is at the lower limits of normal. The estimated ejection fraction is 50-55%. Wall motion is normal; there are no regional wall motion abnormalities. - Right ventricle: Systolic function is normal. - Mitral valve: There is trace to mild regurgitation. - Aortic valve: There is no evidence of stenosis. - Tricuspid valve: There is trace regurgitation. - Ascending aorta: The ascending aorta is mildly dilated at 3.6 cm. 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 - Compared to study of 12/07/15, there is little change. Study data: Transthoracic echocardiogram. Procedure: Transthoracic echocardiography was performed. Image quality was fair. The study was technically limited due to body habitus and smoking history. Intravenous Definity 3 ml was administered to enhance imaging. Complete 2D, spectral Doppler, and color flow Doppler. Location: Stress laboratory. Patient status: Inpatient. Patient room number: 442-02. Rhythm: Normal sinus rhythm with PACs. Findings Left ventricle: The cavity size is normal. Wall thickness is moderately increased. Systolic function is at the lower limits of normal. The estimated ejection fraction is 50-55%. Wall motion is normal; there are no regional wall motion abnormalities. There is no consistent Doppler evidence of clinically significant diastolic dysfunction. Right ventricle: The cavity size is normal. Systolic function is normal. Left atrium: The atrium is mildly dilated. Right atrium: The atrium is mildly dilated. Mitral valve: The mitral valve annulus appears calcified. The leaflets are mildly thickened. There is no evidence of stenosis. There is trace to mild regurgitation. Aortic valve: The valve is trileaflet. The leaflets are mildly thickened. There is no evidence of stenosis. There is no regurgitation. Tricuspid valve: The valve is structurally normal. There is no evidence of stenosis. There is trace regurgitation. Pulmonic valve: Not well visualized. The valve is structurally normal. There is no evidence of stenosis. There is trace regurgitation. Aorta: Aortic root: The aortic root is not dilated. Ascending aorta: The ascending aorta is mildly dilated at 3.6 cm. 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 Pericardium: There is no pericardial effusion. Pulmonary arteries: The main pulmonary artery is normal-sized. Systolic pressure can not be accurately estimated. Systemic veins: Inferior vena cava: Not well visualized. Measurements Left ventricle Value Ref Right atrium Value Ref CHELI, LAX 4.9 cm 4.2 - 5.8 ML dim, ES, A4C 4.0 cm 2.6 - 4.4 ESD, LAX 3.7 cm 2.5 - 4.0 SI dim, ES, A4C (H) 5.6 cm 3.4 - 5.3 FS, LAX 25 % 25 - 43 PW, ED (H) 1.3 cm 0.6 - 1.0 Aortic valve Value Ref IVS/PW, ED 1.18 Julito diam, ED 2.5 cm --------- E', lat julito, TDI (L) 5.8 cm/sec >=10.0 Peak v, S 1.1 m/sec --- ------ E/e', lat julito, 10 VTI, S 17.5 cm ------ --- TDI Mean grad, S 3.0 mm Hg --------- E', med julito, TDI (L) 4.4 cm/sec >=7.0 Peak grad, S 5.0 mm Hg --- ------ E/e', med julito, 13 LVOT/AV, VTI ratio 0.95 ------ --- TDI E', avg, TDI 5.1 cm/sec Mitral valve Value Ref E/e', avg, TDI 12 <=14 Peak E 0.59 m/sec --- ------ Peak A 1.06 m/sec --------- LVOT Value Ref Decel time 254 ms --------- Peak lily, S 0.86 m/sec Peak E/A ratio 0.6 --------- VTI, S 16.6 cm Mean grad, S 2 mm Hg Pulmonic valve Value Ref Peak v, S 0.88 m/sec --------- Ventricular septum Value Ref Peak grad, S 3.0 mm Hg --------- IVS, ED (H) 1.5 cm 0.6 - 1.0 Aortic root Value Ref Right ventricle Value Ref Root diam 3.5 cm <4.5 CHELI, LAX 3.4 cm CHELI minor ax, (H) 3.7 cm 1.9 - 3.5 Ascending aorta Value Ref A4C mid AAo AP diam, S 3.6 cm --------- Left atrium Value Ref AP dim, ES (H) 4.10 cm 3.00 - 4.00 ML dim, A4C 4.4 cm SI dim, A4C 6.3 cm Vol/bsa, ES, 1-p 31 ml/m^2 12 - 37 A4C Vol/bsa, ES, A/L (H) 38 ml/m^2 16 - 34 Legend: (L) and (H) rad values outside specified reference range. Prepared and electronically signed by Thierno Ponce MD 08/17/2019 16:46
[2019-08-17] MEDS: Senna TAB 8.6 mg* TAB PO PRN (20:28)
[2019-08-18] MEDS: Acetaminophen TAB* 325 MG PO PRN ×3 (02:45→20:06)
[2019-08-18 07:20] LABS: BUN/Creatinine Ratio 24.7 (8-20); EGFR African American 56.2 (>60); EGFR Non-African American 46.5 (>60); Magnesium 1.8 mg/dL (1.9-2.7); Potassium 3.4 mmol/L (3.5-5.0)
[2019-08-18] MEDS ORDERED: Magnesium Sulfate 2 GM IV* 2 GM/50 ML BAG IVPB ONE (07:31)
[2019-08-18] MEDS ORDERED: Potassium Chlor TAB* 20 MEQ TAB.ER PO ONE (07:31)
[2019-08-18] MEDS ORDERED: Lactated Ringers 1000 ML Bag* 1,000 ML IV SCH (07:33)
--- NOTE | 2019-08-18 07:43 | PN ---
Subjective Date of Service: 08/18/19 Interval History: No acute overnight events. Last dose of lorazepam was last night at 8:30 PM. Patient reports he is now urinating freely. He no longer feels like he is withdrawing from alcohol. He does not want medication therapy for cravings. His only complaint is feeling unsteady on his feet, and reports months of falling at home. Pending PT eval. Pt requests Drug [facility] Alcohol Rehab placement. Objective Active Medications: Acetaminophen (Tylenol Tab*) 650 mg PO Q4H PRN PRN Reason: MILD PAIN or TEMP > 100.4 Last Admin: 08/18/19 09:25 Dose: 650 mg Amlodipine Besylate (Norvasc Tab*) 10 mg PO DAILY [facility] Last Admin: 08/18/19 09:25 Dose: 10 mg Aspirin (Aspirin 81 Mg Chew Tab*) 81 mg PO DAILY [facility] Last Admin: 08/18/19 09:26 Dose: 81 mg Atorvastatin Calcium (Lipitor*) 40 mg PO DAILY [facility] Last Admin: 08/18/19 09:26 Dose: 40 mg Dextrose (D50w Syringe 50 Ml*) 12.5 gm IV PUSH .FOR FS < 60 - SS PRN PRN Reason: FS < 60 Enoxaparin Sodium (Lovenox(*)) 40 mg SUBCUT BEDTIME [facility] Last Admin: 08/17/19 21:32 Dose: 40 mg Famotidine (Pepcid Tab*) 20 mg PO DAILY PRN PRN Reason: heart burn Folic Acid (Folvite Tab*) 1 mg PO DAILY [facility] Last Admin: 08/18/19 09:26 Dose: 1 mg Insulin Human Lispro (Humalog*) 0 units SUBCUT AC [facility]; Protocol Last Admin: 08/18/19 13:08 Dose: 3 units Lorazepam (Ativan Inj*) 0 - 3 mg IV PUSH .PER [facility] PROTOCOL [facility]; Protocol Last Admin: 08/17/19 20:29 Dose: 2 mg Miscellaneous (Ativan Pyxis Jacobs) 1 ea N/A .ATIVAN IV JACOBS PRN PRN Reason: PYXIS JACOBS Multivitamins/Minerals (Theragran/Minerals Tab*) 1 tab PO DAILY [facility] Last Admin: 08/18/19 09:26 Dose: 1 tab Ondansetron HCl (Zofran Inj*) 4 mg IV Q4H PRN PRN Reason: NAUSEA/VOMITING Last Admin: 08/18/19 02:46 Dose: 4 mg Senna (Senokot 8.6 Mg Tab*) 1 tab PO BID PRN PRN Reason: CONSTIPATION Last Admin: 08/18/19 09:26 Dose: 1 tab Thiamine HCl (Vitamin B-1 Tab*) 100 mg PO DAILY [facility] Last Admin: 08/18/19 09:26 Dose: 100 mg Vital Signs - 8 hr 08/18/19 08/18/19 08/18/19 00:23 02:14 04:08 Temperature 98 F 96.8 F 97.4 F Pulse Rate 111 97 58 Respiratory 18 16 18 Rate Blood Pressure 145/69 115/67 137/60 (mmHg) O2 Sat by Pulse 100 100 100 Oximetry 08/18/19 06:07 Temperature 97.7 F Pulse Rate 61 Respiratory 20 Rate Blood Pressure 134/66 (mmHg) O2 Sat by Pulse 100 Oximetry Oxygen Devices in Use Now: None Appearance: well appearing, no acute distress Eyes: No Scleral Icterus Ears/Nose/Mouth/Throat: - - no tongue fasciculations Neck: NL Appearance and Movements; NL JVP, Trachea Midline Respiratory: Symmetrical Chest Expansion and Respiratory Effort, Clear to Auscultation Cardiovascular: NL Sounds; No Murmurs; No JVD, RRR Abdominal: NL Sounds; No Tenderness; No Distention, No Hepatosplenomegaly Extremities: No Edema, - - mild hand tremor Skin: No Rash or Ulcers Neurological: Alert and Oriented x 3 Result Diagrams: 08/17/19 05:19 08/18/19 15:51 Assess/Plan/Problems-Billing Assessment: 59M with alcohol use disorder, DM2, HTN, migraines, mitral regurg, obesity, CVA , GERD, off all meds, presents with progressive chest pain and DIAS for 2 weeks, found with trop 0.03, without concerning EKG findings. Also in alcohol withdrawal on [facility] protocol. - Patient Problems (1) Alcohol withdrawal Comment: - cont [facility] protocol with lorazepam, also s/p Librium PO - continue thiamine and folic acid - consult (2) Chest pain Comment: CP not typical but has multiple risk factors. TTE normal, nuclear stress intermediate risk. Pt without chest pain after admission. Trop to 0.03 likely demand in setting of withdrawal. - cardiology recommends to cont home meds: aspirin and statin (3) Metabolic acidosis Comment: Elevated anion gap. Suspect ketoacidosis in setting of alcohol abuse and poor PO. Possibly made worse by significant IVF. - eating now, labs improving - monitor BMP (4) Acute kidney injury Comment: Unknown baseline creatinine, so may not be SAMMY. Likely CKD. - avoid nephrotoxic medications and renally dose medications - pending outside records for baseline BMP - will likely re-start lisinopril (5) Epigastric pain Comment: Likely alcoholic gastritis. No symptoms now. - start H2 jeyson prn heart burn - avoid alcohol (6) Diabetes Comment: A1c 7.3% off all meds for one year. S/p gastric sleeve surgery. - short-acting ISS for now - previously refused metformin; tolerated Victoza - carb control (7) HTN (hypertension) Comment: - cont home amlodipine 10mg daily - hold home lisinopril for now, although I do not think this is SAMMY (trying to obtain recent PCP lab values); likely restart this if BPs are elevated - hold home HCTZ 25mg in setting of electrolyte abnormalities (8) Urinary retention Comment: Pt reports no UOP because is is "shy". Noted to retain 450 mL. Finally able to urinate when encouraged. Denies weak stream, feeling like he cannot empty bladder. Does not strain. - cont to encourage - if unable to maintain UOP while on IVF, will place Strong (9) History of CVA (cerebrovascular accident) Comment: Continue ASA and statin. (10) DVT prophylaxis Comment: SQ heparin
[2019-08-18] MEDS: Sodium Citrate/Citric Acid* 15 ML UDC PO SCH ×3 (09:22→20:05)
[2019-08-18] MEDS: Sucralfate TAB* 1 GM PO SCH ×3 (09:25→18:18)
[2019-08-18] MEDS: amLODIPine TAB* 5 MG PO SCH (09:25)
[2019-08-18] MEDS: Multivitamins/Minerals TAB PO SCH (09:26)
[2019-08-18] MEDS: Insulin LISPRO* 1 UNITS UNIT SUBCUT SCH ×3 (09:26→18:01)
[2019-08-18] MEDS: Pantoprazole TAB * 40 MG TAB PO SCH (09:26)
[2019-08-18] MEDS: Senna TAB 8.6 mg* TAB PO PRN ×2 (09:26→20:06)
[2019-08-18] MEDS: Thiamine TAB* 100 MG TAB PO SCH (09:26)
[2019-08-18] MEDS: Aspirin 81 mg CHEW TAB* 81 MG TAB.CHEW PO SCH (09:26)
[2019-08-18] MEDS: Folic Acid TAB* 1 MG PO SCH (09:26)
[2019-08-18] MEDS: Atorvastatin* 40 MG TAB PO SCH (09:26)
[2019-08-18 16:41] LABS: BUN/Creatinine Ratio 25.5 (8-20); Calcium 8.1 mg/dL (8.6-10.3); EGFR African American 64.4 (>60); EGFR Non-African American 53.2 (>60); Potassium 3.7 mmol/L (3.5-5.0)
[2019-08-18] MEDS ORDERED: Famotidine TAB* 20 MG PO PRN (16:41)
[2019-08-18] MEDS: Enoxaparin(*) 40 MG/0.4 ML SYR SUBCUT SCH (20:07)
[2019-08-18] MEDS ORDERED: diPHENhydraMINE PO* 25 MG PO ONE (23:23)
[2019-08-19] MEDS: Acetaminophen TAB* 325 MG PO PRN ×4 (01:01→20:48)
[2019-08-19 07:13] LABS: BUN/Creatinine Ratio 23.5 (8-20); EGFR African American 67.2 (>60); EGFR Non-African American 55.5 (>60); Magnesium 1.8 mg/dL (1.9-2.7); Potassium 3.4 mmol/L (3.5-5.0)
[2019-08-19] MEDS ORDERED: Magnesium Sulfate 2 GM IV* 2 GM/50 ML BAG IVPB ONE (07:35)
[2019-08-19] MEDS ORDERED: Potassium Chlor TAB* 20 MEQ TAB.ER PO ONE (07:35)
--- NOTE | 2019-08-19 07:42 | PN ---
Subjective Date of Service: 08/19/19 Interval History: No acute events overnight. Pt no longer withdrawing from alcohol. No longer on IV fluids, but requiring electrolyte repletion. Only reports chronic joint pain from know OA. Denies anxiety, headache, diarrhea. Urinating ok. Appetite good. Will plan for safe discharge with CM team. May need rehab. Objective Active Medications: Acetaminophen (Tylenol Tab*) 650 mg PO Q4H PRN PRN Reason: MILD PAIN or TEMP > 100.4 Last Admin: 08/19/19 01:01 Dose: 650 mg Amlodipine Besylate (Norvasc Tab*) 5 mg PO DAILY [facility] Aspirin (Aspirin 81 Mg Chew Tab*) 81 mg PO DAILY [facility] Last Admin: 08/18/19 09:26 Dose: 81 mg Atorvastatin Calcium (Lipitor*) 40 mg PO DAILY [facility] Last Admin: 08/18/19 09:26 Dose: 40 mg Dextrose (D50w Syringe 50 Ml*) 12.5 gm IV PUSH .FOR FS < 60 - SS PRN PRN Reason: FS < 60 Enoxaparin Sodium (Lovenox(*)) 40 mg SUBCUT BEDTIME [facility] Last Admin: 08/18/19 20:07 Dose: 40 mg Famotidine (Pepcid Tab*) 20 mg PO DAILY PRN PRN Reason: heart burn Folic Acid (Folvite Tab*) 1 mg PO DAILY [facility] Last Admin: 08/18/19 09:26 Dose: 1 mg Insulin Human Lispro (Humalog*) 0 units SUBCUT AC [facility]; Protocol Last Admin: 08/18/19 18:01 Dose: 9 units Lisinopril (Prinivil Tab*) 5 mg PO DAILY [facility] Multivitamins/Minerals (Theragran/Minerals Tab*) 1 tab PO DAILY [facility] Last Admin: 08/18/19 09:26 Dose: 1 tab Ondansetron HCl (Zofran Inj*) 4 mg IV Q4H PRN PRN Reason: NAUSEA/VOMITING Last Admin: 08/18/19 02:46 Dose: 4 mg Senna (Senokot 8.6 Mg Tab*) 1 tab PO BID PRN PRN Reason: CONSTIPATION Last Admin: 08/18/19 20:06 Dose: 1 tab Sitagliptin Phosphate (Januvia (Nf)) 100 mg PO DAILY [facility]; Protocol Thiamine HCl (Vitamin B-1 Tab*) 100 mg PO DAILY [facility] Last Admin: 08/18/19 09:26 Dose: 100 mg Vital Signs - 8 hr 08/18/19 08/19/19 08/19/19 23:55 02:00 04:00 Temperature 97.4 F Pulse Rate 98 Respiratory 20 18 16 Rate Blood Pressure 119/74 (mmHg) O2 Sat by Pulse 100 Oximetry Oxygen Devices in Use Now: None Appearance: well appearing, nad, alert and interactive Eyes: No Scleral Icterus Ears/Nose/Mouth/Throat: Clear Oropharnyx, Mucous Membranes Moist Neck: NL Appearance and Movements; NL JVP, Trachea Midline Respiratory: Symmetrical Chest Expansion and Respiratory Effort, Clear to Auscultation Cardiovascular: NL Sounds; No Murmurs; No JVD, RRR Abdominal: NL Sounds; No Tenderness; No Distention, No Hepatosplenomegaly Extremities: No Edema Skin: No Rash or Ulcers Neurological: Alert and Oriented x 3 Result Diagrams: 08/17/19 05:19 08/19/19 06:33 Assess/Plan/Problems-Billing Assessment: 59M with alcohol use disorder, DM2, HTN, migraines, mitral regurg, obesity, CVA , GERD, off all meds, presents with progressive chest pain and DIAS for 2 weeks, found with trop 0.03, without concerning EKG findings. Also in alcohol withdrawal, s/p [facility] protocol. - Patient Problems (1) Alcohol abuse Comment: Previously in rehab at [facility] [place]. - appreciate SW and CM input - cont thiamine/folate (2) Chest pain Comment: CP not typical but has multiple risk factors. TTE normal, nuclear stress intermediate risk. Pt without chest pain after admission. Trop to 0.03 likely demand in setting of withdrawal. - cardiology recommends to cont home meds: aspirin and statin (3) Acute kidney injury Comment: Unknown baseline creatinine, so may not be SAMMY. Likely CKD. - avoid nephrotoxic medications and renally dose medications - pending outside records for baseline BMP - restart lisinopril for renal protection (4) Diabetes Comment: A1c 7.3% off all meds for one year. S/p gastric sleeve surgery. - short-acting ISS for now - previously refused metformin; tolerated Victoza - will start on discharge - start sitagliptin - carb control (5) HTN (hypertension) Comment: - cont amlodipine 5mg daily, start lisinopril 5mg daily - hold home HCTZ 25mg in setting of electrolyte abnormalities (6) History of CVA (cerebrovascular accident) Comment: Continue ASA and statin. (7) Epigastric pain Comment: Likely alcoholic gastritis. No symptoms now. - start H2 jeyson prn heart burn - avoid alcohol (8) DVT prophylaxis Comment: SQ heparin
[2019-08-19] MEDS: Insulin LISPRO* 1 UNITS UNIT SUBCUT SCH ×3 (08:53→16:28)
[2019-08-19] MEDS: Aspirin 81 mg CHEW TAB* 81 MG TAB.CHEW PO SCH (08:54)
[2019-08-19] MEDS: Multivitamins/Minerals TAB PO SCH (08:54)
[2019-08-19] MEDS: Atorvastatin* 40 MG TAB PO SCH (08:54)
[2019-08-19] MEDS: Thiamine TAB* 100 MG TAB PO SCH (08:54)
[2019-08-19] MEDS: Lisinopril TAB* 5 MG PO SCH (08:54)
[2019-08-19] MEDS: Folic Acid TAB* 1 MG PO SCH (08:54)
[2019-08-19] MEDS ORDERED: amLODIPine TAB* 5 MG PO SCH (09:00)
[2019-08-19] MEDS: CMC:SitaGLIPtin (NF) 100 MG TAB PO SCH (09:06)
[2019-08-19] MEDS ORDERED: traMADol TAB* 50 MG PO ONE (11:52)
[2019-08-19] MEDS: Melatonin 3 MG TAB PO SCH (20:48)
[2019-08-19] MEDS: Enoxaparin(*) 40 MG/0.4 ML SYR SUBCUT SCH (20:49)
[2019-08-20] MEDS: Acetaminophen TAB* 325 MG PO PRN ×3 (00:51→19:47)
[2019-08-20] MEDS ORDERED: diPHENhydraMINE PO* 25 MG PO PRN (01:50)
[2019-08-20 08:05] LABS: Hematocrit 28 % (42-52); Hemoglobin 9.6 g/dL (14.0-18.0); Mean Corpuscular HGB Conc 34 g/dL (31-36); Mean Corpuscular Hemoglobin 35 pg (27-31); Mean Corpuscular Volume 100 fL (80-94); Mean Platelet Volume 7.7 fL (7.4-10.4); Platelet Count 210 10^3/uL (150-450); Red Blood Count 2.79 10^6 /uL (4.18-5.48); Red Cell Distribution Width 15 % (10-15); White Blood Count 3.8 10^3/uL (3.5-10.8)
[2019-08-20 08:21] LABS: BUN/Creatinine Ratio 23.9 (8-20); EGFR African American 63.8 (>60); EGFR Non-African American 52.7 (>60); Magnesium 1.9 mg/dL (1.9-2.7); Potassium 3.5 mmol/L (3.5-5.0)
[2019-08-20] MEDS: Atorvastatin* 40 MG TAB PO SCH (08:28)
[2019-08-20] MEDS: CMC:SitaGLIPtin (NF) 100 MG TAB PO SCH (08:28)
[2019-08-20] MEDS: Lisinopril TAB* 5 MG PO SCH (08:28)
[2019-08-20] MEDS: Multivitamins/Minerals TAB PO SCH (08:28)
[2019-08-20] MEDS: Thiamine TAB* 100 MG TAB PO SCH (08:28)
[2019-08-20] MEDS: Folic Acid TAB* 1 MG PO SCH (08:28)
[2019-08-20] MEDS: Aspirin 81 mg CHEW TAB* 81 MG TAB.CHEW PO SCH (08:28)
[2019-08-20] MEDS: Insulin LISPRO* 1 UNITS UNIT SUBCUT SCH ×3 (08:28→17:22)
[2019-08-20] MEDS ORDERED: Potassium Chlor TAB* 20 MEQ TAB.ER PO ONE (09:11)
--- NOTE | 2019-08-20 09:14 | PN ---
Subjective Date of Service: 08/20/19 Interval History: No acute events overnight. Pending placement in [facility], pending insurance. Pt reports still feeling weak and shaky when walking but also feels like it's getting better. Still hopes to go to drug & alcohol rehab. Continues to deny chest pain, SOB, abd pain, dysuria, fevers, chills, headache, anxiety. b/l hand tremor unchanged. Does report chronic tooth pain. States he has a cracked tooth there and previously has had Augmentin. Objective Active Medications: Acetaminophen (Tylenol Tab*) 650 mg PO Q4H PRN PRN Reason: MILD PAIN or TEMP > 100.4 Last Admin: 08/20/19 08:28 Dose: 650 mg Aspirin (Aspirin 81 Mg Chew Tab*) 81 mg PO DAILY [facility] Last Admin: 08/20/19 08:28 Dose: 81 mg Atorvastatin Calcium (Lipitor*) 40 mg PO DAILY [facility] Last Admin: 08/20/19 08:28 Dose: 40 mg Dextrose (D50w Syringe 50 Ml*) 12.5 gm IV PUSH .FOR FS < 60 - SS PRN PRN Reason: FS < 60 Enoxaparin Sodium (Lovenox(*)) 40 mg SUBCUT BEDTIME [facility] Last Admin: 08/19/19 20:49 Dose: 40 mg Famotidine (Pepcid Tab*) 20 mg PO DAILY PRN PRN Reason: heart burn Folic Acid (Folvite Tab*) 1 mg PO DAILY [facility] Last Admin: 08/20/19 08:28 Dose: 1 mg Magnesium Sulfate/Dextrose (Magnesium Sulfate 1 Gm Iv*) 1 gm in 100 mls @ 200 mls/hr IV ONCE ONE Stop: 08/20/19 09:40 Insulin Glargine (Lantus(*)) 10 units SUBCUT Q24H [facility] Insulin Human Lispro (Humalog*) 0 units SUBCUT AC [facility]; Protocol Last Admin: 08/20/19 08:28 Dose: 6 units Lisinopril (Prinivil Tab*) 10 mg PO DAILY [facility] Melatonin (Melatonin) 3 mg PO BEDTIME [facility] Last Admin: 08/19/19 20:48 Dose: 3 mg Multivitamins/Minerals (Theragran/Minerals Tab*) 1 tab PO DAILY [facility] Last Admin: 08/20/19 08:28 Dose: 1 tab Ondansetron HCl (Zofran Inj*) 4 mg IV Q4H PRN PRN Reason: NAUSEA/VOMITING Last Admin: 08/18/19 02:46 Dose: 4 mg Potassium Chloride (Klor Con Er Tab*) 40 meq PO ONCE ONE Stop: 08/20/19 09:12 Senna (Senokot 8.6 Mg Tab*) 1 tab PO BID PRN PRN Reason: CONSTIPATION Last Admin: 08/18/19 20:06 Dose: 1 tab Sitagliptin Phosphate (Januvia (Nf)) 100 mg PO DAILY [facility]; Protocol Last Admin: 08/20/19 08:28 Dose: 100 mg Thiamine HCl (Vitamin B-1 Tab*) 100 mg PO DAILY [facility] Last Admin: 08/20/19 08:28 Dose: 100 mg Vital Signs - 8 hr 08/20/19 07:15 Temperature 97.3 F Pulse Rate 53 Respiratory 20 Rate Blood Pressure 135/63 (mmHg) O2 Sat by Pulse 100 Oximetry Oxygen Devices in Use Now: None Appearance: chronically ill-appearing man in NAD, alert and interactive, nontoxic, sitting in chair speaking in full sentences Eyes: No Scleral Icterus Ears/Nose/Mouth/Throat: Clear Oropharnyx, Mucous Membranes Moist, - - no gingival swelling or erythema, no evidence for abscess Neck: - - no cervical/submental/submandibular LAD Respiratory: Symmetrical Chest Expansion and Respiratory Effort, Clear to Auscultation Cardiovascular: NL Sounds; No Murmurs; No JVD, RRR Abdominal: NL Sounds; No Tenderness; No Distention, No Hepatosplenomegaly Extremities: No Edema Skin: No Rash or Ulcers Neurological: Alert and Oriented x 3 Result Diagrams: 08/20/19 07:29 08/20/19 07:29 Assess/Plan/Problems-Billing Assessment: 59M with alcohol use disorder, DM2, HTN, migraines, mitral regurg, obesity, CVA , GERD, off all meds, presents with progressive chest pain and DIAS for 2 weeks, found with trop 0.03, without concerning EKG findings. Also in alcohol withdrawal, s/p WAM protocol. - Patient Problems (1) Alcohol abuse Comment: s/p WAM protocol. Previously in rehab at [facility]. - appreciate SW and CM input - cont thiamine/folate (2) Chest pain Comment: CP not typical but has multiple risk factors. TTE normal, nuclear stress intermediate risk. Pt without chest pain after admission. Trop to 0.03 likely demand in setting of withdrawal. - cardiology recommends to cont home meds: aspirin and statin (3) Acute kidney injury Comment: Unknown baseline creatinine, so may not be SAMMY. Likely CKD. - avoid nephrotoxic medications and renally dose medications - pending outside records for baseline BMP - restart lisinopril for renal protection (4) Diabetes Comment: A1c 7.3% off all meds for one year. S/p gastric sleeve surgery. - short-acting ISS with high requirements, will add insulin glargine 10u daily ( pt reports requiring this previously) - previously refused metformin; tolerated Victoza - can start on discharge - cont sitagliptin 100 - carb control (5) HTN (hypertension) Comment: - hypotensive on 2 BP meds, will continue lisinopril only, given renal benefit (6) Macrocytic anemia Comment: Likely due to high alcohol use effect on hematopoietic system. No evidence for bleeding or hemolysis. - etoh use treatment as above - f/u with age-appropriate cancer screening as outpatient (7) History of CVA (cerebrovascular accident) Comment: Continue ASA and statin. (8) Epigastric pain Comment: Likely alcoholic gastritis. No symptoms now. - start H2 jeyson prn heart burn - avoid alcohol (9) DVT prophylaxis Comment: SQ heparin
[2019-08-20] MEDS ORDERED: Magnesium Sulfate 1 GM IV* 1 GM/100 ML BAG IV ONE (09:30)
[2019-08-20] MEDS: Insulin GLARGINE(*) 1 UNITS UNIT SUBCUT SCH (10:02)
[2019-08-20] MEDS: Enoxaparin(*) 40 MG/0.4 ML SYR SUBCUT SCH (19:46)
[2019-08-20] MEDS: Melatonin 3 MG TAB PO SCH (19:47)
[2019-08-21] MEDS: Atorvastatin* 40 MG TAB PO SCH (08:43)
[2019-08-21] MEDS: Multivitamins/Minerals TAB PO SCH (08:43)
[2019-08-21] MEDS: Aspirin 81 mg CHEW TAB* 81 MG TAB.CHEW PO SCH (08:43)
[2019-08-21] MEDS: CMC:SitaGLIPtin (NF) 100 MG TAB PO SCH (08:43)
[2019-08-21] MEDS: Thiamine TAB* 100 MG TAB PO SCH (08:43)
[2019-08-21] MEDS: Folic Acid TAB* 1 MG PO SCH (08:43)
[2019-08-21] MEDS: Insulin LISPRO* 1 UNITS UNIT SUBCUT SCH ×3 (08:43→17:30)
[2019-08-21] MEDS: Lisinopril TAB* 5 MG PO SCH (08:43)
[2019-08-21] MEDS ORDERED: Docusate CAP* 100 MG PO PRN (10:25)
[2019-08-21] MEDS: Insulin GLARGINE(*) 1 UNITS UNIT SUBCUT SCH (10:35)
[2019-08-21] MEDS: Acetaminophen TAB* 325 MG PO PRN ×2 (10:35→22:10)
[2019-08-21] MEDS: Senna TAB 8.6 mg* TAB PO PRN (10:35)
--- NOTE | 2019-08-21 12:27 | PN ---
Subjective Date of Service: 08/21/19 Interval History: HD6 on 08/21 59M PMH alcohol use disorder, IDDM, HTN, migraines, mitral regurg, obesity, hx CVA, CAD, GERD, off all meds on presentation, presents with atypical CP with a neg r/o ACS and course c/b alcohol withdrawal, sig weakness. Overnight VSS-mild HTN no acute events Labs: Held today, stable anemia and Cr 1.3 This morning doing well, pleasant and conversant, feeling stronger, more insight , tolerating diet, no BM but started bowel regimen. Denies CP SOB GI or MSK complaints. Objective Active Medications: Acetaminophen (Tylenol Tab*) 650 mg PO Q4H PRN PRN Reason: MILD PAIN or TEMP > 100.4 Last Admin: 08/21/19 10:35 Dose: 650 mg Aspirin (Aspirin 81 Mg Chew Tab*) 81 mg PO DAILY [facility] Last Admin: 08/21/19 08:43 Dose: 81 mg Atorvastatin Calcium (Lipitor*) 40 mg PO DAILY [facility] Last Admin: 08/21/19 08:43 Dose: 40 mg Dextrose (D50w Syringe 50 Ml*) 12.5 gm IV PUSH .FOR FS < 60 - SS PRN PRN Reason: FS < 60 Docusate Sodium (Colace Cap*) 200 mg PO DAILY PRN PRN Reason: CONSTIPATION Enoxaparin Sodium (Lovenox(*)) 40 mg SUBCUT BEDTIME [facility] Last Admin: 08/20/19 19:46 Dose: 40 mg Famotidine (Pepcid Tab*) 20 mg PO DAILY PRN PRN Reason: heart burn Folic Acid (Folvite Tab*) 1 mg PO DAILY [facility] Last Admin: 08/21/19 08:43 Dose: 1 mg Insulin Glargine (Lantus(*)) 10 units SUBCUT Q24H [facility] Last Admin: 08/21/19 10:35 Dose: 10 units Insulin Human Lispro (Humalog*) 0 units SUBCUT AC [facility]; Protocol Last Admin: 08/21/19 08:43 Dose: 6 units Lisinopril (Prinivil Tab*) 10 mg PO DAILY [facility] Last Admin: 08/21/19 08:43 Dose: 10 mg Melatonin (Melatonin) 3 mg PO BEDTIME [facility] Last Admin: 08/20/19 19:47 Dose: 3 mg Multivitamins/Minerals (Theragran/Minerals Tab*) 1 tab PO DAILY [facility] Last Admin: 08/21/19 08:43 Dose: 1 tab Ondansetron HCl (Zofran Inj*) 4 mg IV Q4H PRN PRN Reason: NAUSEA/VOMITING Last Admin: 08/18/19 02:46 Dose: 4 mg Senna (Senokot 8.6 Mg Tab*) 1 tab PO BID PRN PRN Reason: CONSTIPATION Last Admin: 08/21/19 10:35 Dose: 1 tab Sitagliptin Phosphate (Januvia (Nf)) 100 mg PO DAILY [facility]; Protocol Last Admin: 08/21/19 08:43 Dose: 100 mg Thiamine HCl (Vitamin B-1 Tab*) 100 mg PO DAILY [facility] Last Admin: 08/21/19 08:43 Dose: 100 mg Vital Signs - 8 hr 08/21/19 08/21/19 08/21/19 07:15 08:08 11:15 Temperature 98.7 F 98.6 F Pulse Rate 95 101 Respiratory 20 18 20 Rate Blood Pressure 149/65 138/77 (mmHg) O2 Sat by Pulse 100 100 Oximetry Oxygen Devices in Use Now: None Appearance: Pleasant well appearing man in NAD, mild tremor Eyes: No Scleral Icterus, PERRLA Ears/Nose/Mouth/Throat: NL Teeth, Lips, Gums Neck: NL Appearance and Movements; NL JVP Respiratory: Symmetrical Chest Expansion and Respiratory Effort, Clear to Auscultation Cardiovascular: NL Sounds; No Murmurs; No JVD, RRR Abdominal: NL Sounds; No Tenderness; No Distention, No Hepatosplenomegaly Lymphatic: No Cervical Adenopathy Extremities: No Edema Skin: No Rash or Ulcers Neurological: Alert and Oriented x 3 Result Diagrams: 08/20/19 07:29 08/20/19 07:29 Diagnostic Imaging: CXR 2/3: No disease CTH 2/3: No disease Echo 2/3 Summary: - Left ventricle: The cavity size is normal. Wall thickness is moderately increased. Systolic function is at the lower limits of normal. The estimated ejection fraction is 50-55%. Wall motion is normal; there are no regional wall motion abnormalities. - Right ventricle: Systolic function is normal. - Mitral valve: There is trace to mild regurgitation. - Aortic valve: There is no evidence of stenosis. - Tricuspid valve: There is trace regurgitation. - Ascending aorta: The ascending aorta is mildly dilated at 3.6 cm. 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 - Compared to study of 12/07/15, there is little change. Nuc Med Stress 08/17 IMPRESSION: #. Diffuse hypokinesia with estimated LEFT ventricular ejection fraction of 35% and dilated LEFT ventricle with estimated end-diastolic volume of 130 mL. #. No compelling evidence for focal stress-induced ischemia or presence of an infarct. Balanced ischemia due to 3 vessel disease is not excluded in this setting. EKG Data: 08/16 EKG: Sinus ectopy but no acute ischemia Assess/Plan/Problems-Billing Assessment: 59M PMH alcohol use disorder, IDDM A1C 7.2, HTN, migraines, mitral regurg, obesity, hx CVA, likely CAD, GERD, off all meds, presents with atypical CP with a neg r/o ACS and course c/b alcohol withdrawal, sig weakness. - Patient Problems (1) Chest pain Current Visit: Yes Status: Acute Code(s): R07.9 - CHEST PAIN, UNSPECIFIED SNOMED Code(s): 09234952 Comment: - CP not typical but has multiple risk factors. TTE normal, nuclear stress intermediate risk. Pt without chest pain after admission. Trop to 0.03 likely demand in setting of withdrawal. - Cardiology recommends to cont home meds: aspirin and statin (2) Alcohol abuse Current Visit: Yes Status: Acute Code(s): F10.10 - ALCOHOL ABUSE, UNCOMPLICATED SNOMED Code(s): 81464871 Comment: - s/p WAM protocol, ativan and PO librium. Previously in rehab at [facility]. - appreciate SW and CM input - cont thiamine/folate (3) Acute kidney injury Current Visit: Yes Status: Acute Code(s): N17.9 - ACUTE KIDNEY FAILURE, UNSPECIFIED SNOMED Code(s): 14248741 Comment: Unknown baseline creatinine, so may not be SAMMY. Likely CKD. - avoid nephrotoxic medications and renally dose medications - pending outside records for baseline BMP - Lisinopril 10mg for renal protection, resume Metformin renal dose when stable (4) Macrocytic anemia Current Visit: Yes Status: Acute Priority: High Code(s): D53.9 - NUTRITIONAL ANEMIA, UNSPECIFIED SNOMED Code(s): 96354251 Comment: Likely due to high alcohol use effect on hematopoietic system. No evidence for bleeding or hemolysis. - etoh use treatment as above - f/u with age-appropriate cancer screening as outpatient (5) Diabetes Current Visit: Yes Status: Chronic Code(s): E11.9 - TYPE 2 DIABETES MELLITUS WITHOUT COMPLICATIONS SNOMED Code(s): 33541147 Comment: A1c 7.3% off all meds for one year. S/p gastric sleeve surgery. - short-acting ISS with high requirements, will add insulin glargine 10u daily ( pt reports requiring this previously) - previously refused metformin; retrial low dose after discussion tomorrow, tolerated Victoza - can start on discharge - cont sitagliptin 100 - carb control (6) HTN (hypertension) Current Visit: Yes Status: Chronic Code(s): I10 - ESSENTIAL (PRIMARY) HYPERTENSION SNOMED Code(s): 14618941 Comment: - Amlodipine held when Lisinopril started, will restart low dose Amlodipine in conjunction with ACEI (7) History of CVA (cerebrovascular accident) Current Visit: Yes Status: Chronic Code(s): Z86.73 - PRSNL HX OF TIA (TIA), AND CEREB INFRC W/O RESID DEFICITS SNOMED Code(s): 992208521 Comment: - Continue ASA and statin. (8) Hyperlipidemia Current Visit: No Status: Chronic Code(s): E78.5 - HYPERLIPIDEMIA, UNSPECIFIED SNOMED Code(s): 80873312 Comment: - Continue home atorvastatin. (9) GERD (gastroesophageal reflux disease) Current Visit: Yes Status: Acute Code(s): K21.9 - GASTRO-ESOPHAGEAL REFLUX DISEASE WITHOUT ESOPHAGITIS SNOMED Code(s): 834769404 Comment: - Cont H2 jeyson (10) DVT prophylaxis Current Visit: Yes Status: Acute Code(s): UZO8055 - SNOMED Code(s): 746671153 Comment: - LMWH (11) Full code status Current Visit: No Status: Acute Code(s): Z78.9 - OTHER SPECIFIED HEALTH STATUS SNOMED Code(s): 018599912 Status and Disposition: Inpatient, social work issues with no insurance PT 08/20-Rec inpatient rehab Dispo pending this Carb Consistent diet
[2019-08-21] MEDS ORDERED: Docusate CAP* 100 MG PO SCH (18:00)
[2019-08-21] MEDS: Enoxaparin(*) 40 MG/0.4 ML SYR SUBCUT SCH (22:11)
[2019-08-21] MEDS: Melatonin 3 MG TAB PO SCH (22:11)
[2019-08-22 05:48] LABS: BUN/Creatinine Ratio 23.1 (8-20); Calcium 8.5 mg/dL (8.6-10.3); EGFR Non-African American 54.6 (>60); Potassium 3.9 mmol/L (3.5-5.0)
--- NOTE | 2019-08-22 07:00 | PN ---
Subjective Date of Service: 08/22/19 Interval History: HD7 on 08/22 59M PMH alcohol use disorder, IDDM, HTN, migraines, mitral regurg, obesity, hx CVA, CAD, GERD, off all meds on presentation, presents with atypical CP with a neg r/o ACS and course c/b alcohol withdrawal, sig weakness. Overnight VSS-mild HTN no acute events Labs: Stable anemia and Cr 1.3 This morning, no complaints, awaiting placement and insurance issues. Discussed his snf plans for recovery. He had a small BM and is tolerating diet Objective Active Medications: Acetaminophen (Tylenol Tab*) 650 mg PO Q4H PRN PRN Reason: MILD PAIN or TEMP > 100.4 Last Admin: 08/21/19 22:10 Dose: 650 mg Amlodipine Besylate (Norvasc Tab*) 5 mg PO DAILY [facility] Aspirin (Aspirin 81 Mg Chew Tab*) 81 mg PO DAILY [facility] Last Admin: 08/21/19 08:43 Dose: 81 mg Atorvastatin Calcium (Lipitor*) 40 mg PO DAILY [facility] Last Admin: 08/21/19 08:43 Dose: 40 mg Dextrose (D50w Syringe 50 Ml*) 12.5 gm IV PUSH .FOR FS < 60 - SS PRN PRN Reason: FS < 60 Docusate Sodium (Colace Cap*) 200 mg PO 0900,2100 [facility] Enoxaparin Sodium (Lovenox(*)) 40 mg SUBCUT BEDTIME [facility] Last Admin: 08/21/19 22:11 Dose: 40 mg Famotidine (Pepcid Tab*) 20 mg PO DAILY PRN PRN Reason: heart burn Folic Acid (Folvite Tab*) 1 mg PO DAILY [facility] Last Admin: 08/21/19 08:43 Dose: 1 mg Insulin Glargine (Lantus(*)) 10 units SUBCUT Q24H [facility] Last Admin: 08/21/19 10:35 Dose: 10 units Insulin Human Lispro (Humalog*) 0 units SUBCUT AC [facility]; Protocol Last Admin: 08/21/19 17:30 Dose: 6 units Lisinopril (Prinivil Tab*) 10 mg PO DAILY [facility] Last Admin: 08/21/19 08:43 Dose: 10 mg Melatonin (Melatonin) 3 mg PO BEDTIME [facility] Last Admin: 08/21/19 22:11 Dose: 3 mg Multivitamins/Minerals (Theragran/Minerals Tab*) 1 tab PO DAILY [facility] Last Admin: 08/21/19 08:43 Dose: 1 tab Ondansetron HCl (Zofran Inj*) 4 mg IV Q4H PRN PRN Reason: NAUSEA/VOMITING Last Admin: 08/18/19 02:46 Dose: 4 mg Polyethylene Glycol/Electrolytes (Miralax (17 Gm Dose Virgilio)) 17 gm PO DAILY PRN PRN Reason: CONSTIPATION Senna (Senokot 8.6 Mg Tab*) 1 tab PO BID PRN PRN Reason: CONSTIPATION Last Admin: 08/21/19 10:35 Dose: 1 tab Sitagliptin Phosphate (Januvia (Nf)) 100 mg PO DAILY [facility]; Protocol Last Admin: 08/21/19 08:43 Dose: 100 mg Thiamine HCl (Vitamin B-1 Tab*) 100 mg PO DAILY [facility] Last Admin: 08/21/19 08:43 Dose: 100 mg Vital Signs - 8 hr 08/22/19 08/22/19 00:21 03:49 Temperature 98.3 F 99.7 F Pulse Rate 95 92 Respiratory 16 16 Rate Blood Pressure 112/69 127/81 (mmHg) O2 Sat by Pulse 100 100 Oximetry Oxygen Devices in Use Now: None Appearance: No acute distres, baseline tremor Eyes: No Scleral Icterus, PERRLA Ears/Nose/Mouth/Throat: NL Teeth, Lips, Gums Neck: NL Appearance and Movements; NL JVP Respiratory: Symmetrical Chest Expansion and Respiratory Effort, Clear to Auscultation Cardiovascular: NL Sounds; No Murmurs; No JVD, RRR Abdominal: NL Sounds; No Tenderness; No Distention, No Hepatosplenomegaly Lymphatic: No Cervical Adenopathy, No Axillary Adenopathy Extremities: No Edema Skin: No Rash or Ulcers Neurological: Alert and Oriented x 3 Result Diagrams: 08/20/19 07:29 08/22/19 05:10 Diagnostic Imaging: CXR 2/3: No disease CTH 2/3: No disease Echo 2/3 Summary: - Left ventricle: The cavity size is normal. Wall thickness is moderately increased. Systolic function is at the lower limits of normal. The estimated ejection fraction is 50-55%. Wall motion is normal; there are no regional wall motion abnormalities. - Right ventricle: Systolic function is normal. - Mitral valve: There is trace to mild regurgitation. - Aortic valve: There is no evidence of stenosis. - Tricuspid valve: There is trace regurgitation. - Ascending aorta: The ascending aorta is mildly dilated at 3.6 cm. 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 - Compared to study of 12/07/15, there is little change. Nuc Med Stress 08/17 IMPRESSION: #. Diffuse hypokinesia with estimated LEFT ventricular ejection fraction of 35% and dilated LEFT ventricle with estimated end-diastolic volume of 130 mL. #. No compelling evidence for focal stress-induced ischemia or presence of an infarct. Balanced ischemia due to 3 vessel disease is not excluded in this setting. EKG Data: 08/16 EKG: Sinus ectopy but no acute ischemia Assess/Plan/Problems-Billing Assessment: 59M PMH alcohol use disorder, IDDM A1C 7.2, HTN, migraines, mitral regurg, obesity, hx CVA, likely CAD, GERD, off all meds, presents with atypical CP with a neg r/o ACS and course c/b alcohol withdrawal, sig weakness. - Patient Problems (1) Chest pain Current Visit: Yes Status: Acute Code(s): R07.9 - CHEST PAIN, UNSPECIFIED SNOMED Code(s): 99191501 Comment: - CP not typical but has multiple risk factors. TTE normal, nuclear stress intermediate risk. Pt without chest pain after admission. Trop to 0.03 likely demand in setting of withdrawal. - Cardiology recommends to cont home meds: aspirin and statin (2) Alcohol abuse Current Visit: Yes Status: Acute Code(s): F10.10 - ALCOHOL ABUSE, UNCOMPLICATED SNOMED Code(s): 95921576 Comment: - s/p WAM protocol, ativan and PO librium. Previously in rehab at [facility]. - appreciate SW and CM input - cont thiamine/folate (3) Acute kidney injury Current Visit: Yes Status: Acute Code(s): N17.9 - ACUTE KIDNEY FAILURE, UNSPECIFIED SNOMED Code(s): 80748615 Comment: Unknown baseline creatinine, so may not be SAMMY. Likely CKD. - avoid nephrotoxic medications and renally dose medications - pending outside records for baseline BMP - Lisinopril 10mg for renal protection, resume Metformin renal dose when stable (4) Macrocytic anemia Current Visit: Yes Status: Acute Priority: High Code(s): D53.9 - NUTRITIONAL ANEMIA, UNSPECIFIED SNOMED Code(s): 57602126 Comment: Likely due to high alcohol use effect on hematopoietic system. No evidence for bleeding or hemolysis. - etoh use treatment as above - f/u with age-appropriate cancer screening as outpatient (5) Diabetes Current Visit: Yes Status: Chronic Code(s): E11.9 - TYPE 2 DIABETES MELLITUS WITHOUT COMPLICATIONS SNOMED Code(s): 45016173 Comment: A1c 7.3% off all meds for one year. S/p gastric sleeve surgery. - short-acting ISS with high requirements, will add insulin glargine 10u daily ( pt reports requiring this previously) - previously refused metformin; retrial low dose after discussion, tolerated Victoza - can start on discharge - cont sitagliptin 100 - carb control (6) HTN (hypertension) Current Visit: Yes Status: Chronic Code(s): I10 - ESSENTIAL (PRIMARY) HYPERTENSION SNOMED Code(s): 53308656 Comment: - Amlodipine held when Lisinopril started, will restart low dose Amlodipine in conjunction with ACEI (7) History of CVA (cerebrovascular accident) Current Visit: Yes Status: Chronic Code(s): Z86.73 - PRSNL HX OF TIA (TIA), AND CEREB INFRC W/O RESID DEFICITS SNOMED Code(s): 328491115 Comment: - Continue ASA and statin. (8) Hyperlipidemia Current Visit: No Status: Chronic Code(s): E78.5 - HYPERLIPIDEMIA, UNSPECIFIED SNOMED Code(s): 72257927 Comment: - Continue home atorvastatin. (9) GERD (gastroesophageal reflux disease) Current Visit: Yes Status: Acute Code(s): K21.9 - GASTRO-ESOPHAGEAL REFLUX DISEASE WITHOUT ESOPHAGITIS SNOMED Code(s): 530133872 Comment: - Cont H2 jeyson (10) DVT prophylaxis Current Visit: Yes Status: Acute Code(s): XHG8051 - SNOMED Code(s): 737579995 Comment: - LMWH (11) Full code status Current Visit: No Status: Acute Code(s): Z78.9 - OTHER SPECIFIED HEALTH STATUS SNOMED Code(s): 573256953 Status and Disposition: Inpatient, social work issues with no insurance PT 2/7-Rec inpatient rehab Dispo pending this Carb Consistent diet
[2019-08-22] MEDS: Atorvastatin* 40 MG TAB PO SCH (08:08)
[2019-08-22] MEDS: Lisinopril TAB* 5 MG PO SCH (08:08)
[2019-08-22] MEDS: Folic Acid TAB* 1 MG PO SCH (08:08)
[2019-08-22] MEDS: Multivitamins/Minerals TAB PO SCH (08:08)
[2019-08-22] MEDS: amLODIPine TAB* 5 MG PO SCH (08:09)
[2019-08-22] MEDS: Docusate CAP* 100 MG PO SCH ×2 (08:09→21:22)
[2019-08-22] MEDS: Aspirin 81 mg CHEW TAB* 81 MG TAB.CHEW PO SCH (08:09)
[2019-08-22] MEDS: Thiamine TAB* 100 MG TAB PO SCH (08:09)
[2019-08-22] MEDS: Acetaminophen TAB* 325 MG PO PRN ×2 (08:22→21:23)
[2019-08-22] MEDS: CMC:SitaGLIPtin (NF) 100 MG TAB PO SCH (08:23)
[2019-08-22] MEDS: Insulin LISPRO* 1 UNITS UNIT SUBCUT SCH ×3 (08:23→16:57)
[2019-08-22] MEDS: Insulin GLARGINE(*) 1 UNITS UNIT SUBCUT SCH (08:24)
[2019-08-22] MEDS: Melatonin 3 MG TAB PO SCH (21:24)
[2019-08-22] MEDS: Enoxaparin(*) 40 MG/0.4 ML SYR SUBCUT SCH (21:24)
--- NOTE | 2019-08-22 22:00 | PN ---
Hospitalist Progress Note Date of Service: 08/22/19 Called by nursing staff for ilrregular hr, pt denies chest pain or sob. will check [address] on tele,
--- NOTE | 2019-08-23 07:32 | PN ---
Subjective Date of Service: 08/23/19 Interval History: HD8 on 08/23 59M PMH alcohol use disorder, IDDM, HTN, migraines, mitral regurg, obesity, hx CVA, CAD, GERD, off all meds on presentation, presents with atypical CP with a neg r/o ACS and course c/b alcohol withdrawal, sig weakness. Overnight VSS-mild HTN, report of "irregular heart rate" overnight, placed on tele, sinus on 12 lead with freq PVCs and APCs, no need for further urgent monitoring Labs: Stable anemia and Cr 1.3 This morning, no acute complaints aside from mild headache, awaiting insurance. Discussed DM control, he is willing to retrial metformin. Willing to walk today , will get PT to weigh in on his STR needs Objective Active Medications: Acetaminophen (Tylenol Tab*) 650 mg PO Q4H PRN PRN Reason: MILD PAIN or TEMP > 100.4 Last Admin: 08/22/19 21:23 Dose: 650 mg Amlodipine Besylate (Norvasc Tab*) 5 mg PO DAILY [facility] Last Admin: 08/22/19 08:09 Dose: 5 mg Aspirin (Aspirin 81 Mg Chew Tab*) 81 mg PO DAILY [facility] Last Admin: 08/22/19 08:09 Dose: 81 mg Atorvastatin Calcium (Lipitor*) 40 mg PO DAILY [facility] Last Admin: 08/22/19 08:08 Dose: 40 mg Dextrose (D50w Syringe 50 Ml*) 12.5 gm IV PUSH .FOR FS < 60 - SS PRN PRN Reason: FS < 60 Docusate Sodium (Colace Cap*) 200 mg PO 0900,2100 [facility] Last Admin: 08/22/19 21:22 Dose: 200 mg Enoxaparin Sodium (Lovenox(*)) 40 mg SUBCUT BEDTIME [facility] Last Admin: 08/22/19 21:24 Dose: 40 mg Famotidine (Pepcid Tab*) 20 mg PO DAILY PRN PRN Reason: heart burn Folic Acid (Folvite Tab*) 1 mg PO DAILY [facility] Last Admin: 08/22/19 08:08 Dose: 1 mg Insulin Glargine (Lantus(*)) 10 units SUBCUT Q24H [facility] Last Admin: 08/22/19 08:24 Dose: 10 units Insulin Human Lispro (Humalog*) 0 units SUBCUT AC [facility]; Protocol Last Admin: 08/22/19 16:57 Dose: 6 units Lisinopril (Prinivil Tab*) 10 mg PO DAILY [facility] Last Admin: 08/22/19 08:08 Dose: 10 mg Melatonin (Melatonin) 3 mg PO BEDTIME [facility] Last Admin: 08/22/19 21:24 Dose: 3 mg Multivitamins/Minerals (Theragran/Minerals Tab*) 1 tab PO DAILY [facility] Last Admin: 08/22/19 08:08 Dose: 1 tab Ondansetron HCl (Zofran Inj*) 4 mg IV Q4H PRN PRN Reason: NAUSEA/VOMITING Last Admin: 08/18/19 02:46 Dose: 4 mg Polyethylene Glycol/Electrolytes (Miralax (17 Gm Dose Virgilio)) 17 gm PO DAILY PRN PRN Reason: CONSTIPATION Senna (Senokot 8.6 Mg Tab*) 1 tab PO BID PRN PRN Reason: CONSTIPATION Last Admin: 08/21/19 10:35 Dose: 1 tab Sitagliptin Phosphate (Januvia (Nf)) 100 mg PO DAILY [facility]; Protocol Last Admin: 08/22/19 08:23 Dose: 100 mg Thiamine HCl (Vitamin B-1 Tab*) 100 mg PO DAILY [facility] Last Admin: 08/22/19 08:09 Dose: 100 mg Vital Signs - 8 hr 08/22/19 08/23/19 23:35 03:13 Temperature 97.7 F 98.1 F Pulse Rate 107 112 Respiratory 17 18 Rate Blood Pressure 126/64 139/67 (mmHg) O2 Sat by Pulse 100 100 Oximetry Oxygen Devices in Use Now: None Appearance: No acute distress, mild baseline tremor Ears/Nose/Mouth/Throat: NL Teeth, Lips, Gums, Clear Oropharnyx Neck: NL Appearance and Movements; NL JVP, Trachea Midline Respiratory: Symmetrical Chest Expansion and Respiratory Effort, Clear to Auscultation Cardiovascular: NL Sounds; No Murmurs; No JVD, - - Irreg, cw sinus APC and VPC Abdominal: NL Sounds; No Tenderness; No Distention, No Hepatosplenomegaly Lymphatic: No Cervical Adenopathy Extremities: No Edema Skin: No Rash or Ulcers Neurological: Alert and Oriented x 3 Result Diagrams: 08/20/19 07:29 08/22/19 05:10 Diagnostic Imaging: CXR 2/3: No disease CTH 2/3: No disease Echo 2/3 Summary: - Left ventricle: The cavity size is normal. Wall thickness is moderately increased. Systolic function is at the lower limits of normal. The estimated ejection fraction is 50-55%. Wall motion is normal; there are no regional wall motion abnormalities. - Right ventricle: Systolic function is normal. - Mitral valve: There is trace to mild regurgitation. - Aortic valve: There is no evidence of stenosis. - Tricuspid valve: There is trace regurgitation. - Ascending aorta: The ascending aorta is mildly dilated at 3.6 cm. 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 - Compared to study of 12/07/15, there is little change. Nuc Med Stress 08/17 IMPRESSION: #. Diffuse hypokinesia with estimated LEFT ventricular ejection fraction of 35% and dilated LEFT ventricle with estimated end-diastolic volume of 130 mL. #. No compelling evidence for focal stress-induced ischemia or presence of an infarct. Balanced ischemia due to 3 vessel disease is not excluded in this setting. EKG Data: 08/16 EKG: Sinus ectopy but no acute ischemia Assess/Plan/Problems-Billing Assessment: 59M PMH alcohol use disorder, IDDM A1C 7.2, HTN, migraines, mitral regurg, obesity, hx CVA, likely CAD, GERD, off all meds, presents with atypical CP with a neg r/o ACS and course c/b alcohol withdrawal, sig weakness. - Patient Problems (1) Chest pain Current Visit: Yes Status: Acute Code(s): R07.9 - CHEST PAIN, UNSPECIFIED SNOMED Code(s): 61724540 Comment: - CP not typical but has multiple risk factors. TTE normal, nuclear stress intermediate risk. Pt without chest pain after admission. Trop to 0.03 likely demand in setting of withdrawal. - Cardiology recommends to cont home meds: aspirin and statin - No concerning arrythmia in setting of irregular HR, dc tele (2) Alcohol abuse Current Visit: Yes Status: Acute Code(s): F10.10 - ALCOHOL ABUSE, UNCOMPLICATED SNOMED Code(s): 91345113 Comment: - s/p WAM protocol, ativan and PO librium. Previously in rehab at [facility]. - appreciate SW and CM input - cont thiamine/folate (3) Acute kidney injury Current Visit: Yes Status: Acute Code(s): N17.9 - ACUTE KIDNEY FAILURE, UNSPECIFIED SNOMED Code(s): 00456766 Comment: Unknown baseline creatinine, so may not be SAMMY. Likely CKD. - avoid nephrotoxic medications and renally dose medications - pending outside records for baseline BMP - Lisinopril 10mg for renal protection, resume Metformin renally dosed (4) Macrocytic anemia Current Visit: Yes Status: Acute Priority: High Code(s): D53.9 - NUTRITIONAL ANEMIA, UNSPECIFIED SNOMED Code(s): 68907550 Comment: Likely due to high alcohol use effect on hematopoietic system. No evidence for bleeding or hemolysis. - etoh use treatment as above - f/u with age-appropriate cancer screening as outpatient (5) Diabetes Current Visit: Yes Status: Chronic Code(s): E11.9 - TYPE 2 DIABETES MELLITUS WITHOUT COMPLICATIONS SNOMED Code(s): 69408329 Comment: A1c 7.3% off all meds for one year. S/p gastric sleeve surgery. - short-acting ISS with high requirements, will add insulin glargine 10u daily ( pt reports requiring this previously)-Consider Victoza on d/c - previously refused metformin, though seemed dose dependent, resume renal dose - cont sitagliptin 100 - carb control (6) HTN (hypertension) Current Visit: Yes Status: Chronic Code(s): I10 - ESSENTIAL (PRIMARY) HYPERTENSION SNOMED Code(s): 17290558 Comment: - Amlodipine, Lisinopril, continue home dose (7) History of CVA (cerebrovascular accident) Current Visit: Yes Status: Chronic Code(s): Z86.73 - PRSNL HX OF TIA (TIA), AND CEREB INFRC W/O RESID DEFICITS SNOMED Code(s): 214265161 Comment: - Continue ASA and statin. (8) Hyperlipidemia Current Visit: No Status: Chronic Code(s): E78.5 - HYPERLIPIDEMIA, UNSPECIFIED SNOMED Code(s): 69551988 Comment: - Continue home atorvastatin. (9) GERD (gastroesophageal reflux disease) Current Visit: Yes Status: Acute Code(s): K21.9 - GASTRO-ESOPHAGEAL REFLUX DISEASE WITHOUT ESOPHAGITIS SNOMED Code(s): 532498639 Comment: - Cont H2 jeyson (10) DVT prophylaxis Current Visit: Yes Status: Acute Code(s): NRS0629 - SNOMED Code(s): 292539877 Comment: - LMWH (11) Full code status Current Visit: No Status: Acute Code(s): Z78.9 - OTHER SPECIFIED HEALTH STATUS SNOMED Code(s): 480175321 Status and Disposition: Inpatient, social work issues with no insurance PT 08/20-Rec inpatient rehab Dispo pending this, will continue to have PT reassess to see if he still needs this Carb Consistent diet
[2019-08-23] MEDS: Insulin LISPRO* 1 UNITS UNIT SUBCUT SCH ×3 (08:17→16:55)
[2019-08-23] MEDS: Atorvastatin* 40 MG TAB PO SCH (08:19)
[2019-08-23] MEDS: CMC:SitaGLIPtin (NF) 100 MG TAB PO SCH (08:19)
[2019-08-23] MEDS: Lisinopril TAB* 5 MG PO SCH (08:19)
[2019-08-23] MEDS: Docusate CAP* 100 MG PO SCH ×2 (08:19→22:10)
[2019-08-23] MEDS: Folic Acid TAB* 1 MG PO SCH (08:19)
[2019-08-23] MEDS: Thiamine TAB* 100 MG TAB PO SCH (08:19)
[2019-08-23] MEDS: amLODIPine TAB* 5 MG PO SCH (08:20)
[2019-08-23] MEDS: Aspirin 81 mg CHEW TAB* 81 MG TAB.CHEW PO SCH (08:20)
[2019-08-23] MEDS: Multivitamins/Minerals TAB PO SCH (08:20)
[2019-08-23] MEDS: Acetaminophen TAB* 325 MG PO PRN ×2 (08:20→22:10)
[2019-08-23] MEDS: Senna TAB 8.6 mg* TAB PO PRN ×2 (09:20→22:10)
[2019-08-23] MEDS: Polyethylene Glycol 3350* 17 GM PACKET PO PRN (09:20)
[2019-08-23] MEDS: Insulin GLARGINE(*) 1 UNITS UNIT SUBCUT SCH (10:30)
--- NOTE | 2019-08-23 15:35 | PN ---
Hospitalist Progress Note Date of Service: 08/23/19 Pt with blt lower ext edema. Non painful, just starte damlodipine, likely reaction vs low albumin state vs both -stop amlodipine start HCTZ tomorrow -Offer stockings, he declines [place], per student nursing, pt would like pharmacologic tx for ETOH cravings. Start naltrexone tomorrow
[2019-08-23] MEDS: Enoxaparin(*) 40 MG/0.4 ML SYR SUBCUT SCH (22:10)
[2019-08-24] MEDS: Melatonin 3 MG TAB PO SCH ×2 (00:38→19:57)
[2019-08-24 07:04] LABS: Hematocrit 27 % (42-52); Hemoglobin 9.5 g/dL (14.0-18.0); Mean Corpuscular HGB Conc 35 g/dL (31-36); Mean Corpuscular Hemoglobin 35 pg (27-31); Mean Corpuscular Volume 101 fL (80-94); Mean Platelet Volume 7.4 fL (7.4-10.4); Platelet Count 257 10^3/uL (150-450); Red Blood Count 2.71 10^6 /uL (4.18-5.48); Red Cell Distribution Width 16 % (10-15); White Blood Count 4.1 10^3/uL (3.5-10.8)
[2019-08-24 07:19] LABS: Calcium 8.4 mg/dL (8.6-10.3); EGFR African American 76.5 (>60); EGFR Non-African American 63.2 (>60); Potassium 3.7 mmol/L (3.5-5.0)
[2019-08-24 07:42] LABS: ABS Lymphocytes 0.9 10^3/ul (1.0-4.8); ABS Monocytes 0.6 10^3/ul (0-0.8); ABS Neutrophils 2.5 10^3/ul (1.5-7.7); Eosinophil % 0.8 %; Nucleated Red Blood Cells % 0.2
[2019-08-24] MEDS: Folic Acid TAB* 1 MG PO SCH (08:22)
[2019-08-24] MEDS: Hydrochlorothiazide TAB* 25 MG PO SCH ×2 (08:22→09:07)
[2019-08-24] MEDS: CMC:SitaGLIPtin (NF) 100 MG TAB PO SCH (08:22)
[2019-08-24] MEDS: Senna TAB 8.6 mg* TAB PO PRN (08:23)
[2019-08-24] MEDS: metFORMIN* 500 MG TAB PO SCH (08:23)
[2019-08-24] MEDS: Lisinopril TAB* 5 MG PO SCH (08:23)
[2019-08-24] MEDS: Atorvastatin* 40 MG TAB PO SCH (08:23)
[2019-08-24] MEDS: Aspirin 81 mg CHEW TAB* 81 MG TAB.CHEW PO SCH (08:23)
[2019-08-24] MEDS: Docusate CAP* 100 MG PO SCH ×2 (08:23→19:57)
[2019-08-24] MEDS: Thiamine TAB* 100 MG TAB PO SCH (08:23)
[2019-08-24] MEDS: Acetaminophen TAB* 325 MG PO PRN ×2 (08:23→17:39)
[2019-08-24] MEDS: Polyethylene Glycol 3350* 17 GM PACKET PO PRN (08:29)
[2019-08-24] MEDS: Multivitamins/Minerals TAB PO SCH (09:07)
[2019-08-24] MEDS: Insulin GLARGINE(*) 1 UNITS UNIT SUBCUT SCH (09:20)
[2019-08-24] MEDS: Insulin LISPRO* 1 UNITS UNIT SUBCUT SCH ×3 (09:20→17:35)
--- NOTE | 2019-08-24 14:31 | PN ---
Subjective Date of Service: 08/24/19 Interval History: HD9 on 08/24 59M PMH alcohol use disorder, IDDM, HTN, migraines, mitral regurg, obesity, hx CVA, CAD, GERD, off all meds on presentation, presents with atypical CP with a neg r/o ACS and course c/b alcohol withdrawal, sig weakness. Overnight VSS-he has had c/o blt ankle swelling likely as a rxn to Amlodipine Labs: Stable anemia and Cr improving now to 1.18 This morning, no acute complaints aside from ankles, they have improved, we are awaiting insurance. He generally has had complaints about food and some of the care, frequent reorientation to the larger goals of leaving hospital and maintaining sobriety. STR still the recommendation from PT Objective Active Medications: Acetaminophen (Tylenol Tab*) 650 mg PO Q4H PRN PRN Reason: MILD PAIN or TEMP > 100.4 Last Admin: 08/24/19 08:23 Dose: 650 mg Aspirin (Aspirin 81 Mg Chew Tab*) 81 mg PO DAILY [facility] Last Admin: 08/24/19 08:23 Dose: 81 mg Atorvastatin Calcium (Lipitor*) 40 mg PO DAILY [facility] Last Admin: 08/24/19 08:23 Dose: 40 mg Dextrose (D50w Syringe 50 Ml*) 12.5 gm IV PUSH .FOR FS < 60 - SS PRN PRN Reason: FS < 60 Docusate Sodium (Colace Cap*) 200 mg PO 0900,2100 [facility] Last Admin: 08/24/19 08:23 Dose: 200 mg Enoxaparin Sodium (Lovenox(*)) 40 mg SUBCUT BEDTIME [facility] Last Admin: 08/23/19 22:10 Dose: 40 mg Famotidine (Pepcid Tab*) 20 mg PO DAILY PRN PRN Reason: heart burn Folic Acid (Folvite Tab*) 1 mg PO DAILY [facility] Last Admin: 08/24/19 08:22 Dose: 1 mg Hydrochlorothiazide (Hydrodiuril Tab*) 25 mg PO DAILY [facility] Last Admin: 08/24/19 09:07 Dose: 25 mg Insulin Glargine (Lantus(*)) 10 units SUBCUT Q24H [facility] Last Admin: 08/24/19 09:20 Dose: 10 units Insulin Human Lispro (Humalog*) 0 units SUBCUT AC [facility]; Protocol Last Admin: 08/24/19 12:04 Dose: 3 units Lisinopril (Prinivil Tab*) 10 mg PO DAILY [facility] Last Admin: 08/24/19 08:23 Dose: 10 mg Melatonin (Melatonin) 3 mg PO BEDTIME [facility] Last Admin: 08/24/19 00:38 Dose: 3 mg Metformin HCl (Glucophage*) 500 mg PO DAILY [facility] Last Admin: 08/24/19 08:23 Dose: 500 mg Multivitamins/Minerals (Theragran/Minerals Tab*) 1 tab PO DAILY [facility] Last Admin: 08/24/19 09:07 Dose: 1 tab Naltrexone HCl (Naltrexone Tab*) 50 mg PO QPM [facility]; Protocol Ondansetron HCl (Zofran Inj*) 4 mg IV Q4H PRN PRN Reason: NAUSEA/VOMITING Last Admin: 08/18/19 02:46 Dose: 4 mg Polyethylene Glycol/Electrolytes (Miralax (17 Gm Dose Virgilio)) 17 gm PO DAILY PRN PRN Reason: CONSTIPATION Last Admin: 08/24/19 08:29 Dose: 17 gm Senna (Senokot 8.6 Mg Tab*) 1 tab PO BID PRN PRN Reason: CONSTIPATION Last Admin: 08/24/19 08:23 Dose: 1 tab Sitagliptin Phosphate (Januvia (Nf)) 100 mg PO DAILY [facility]; Protocol Last Admin: 08/24/19 08:22 Dose: 100 mg Thiamine HCl (Vitamin B-1 Tab*) 100 mg PO DAILY [facility] Last Admin: 08/24/19 08:23 Dose: 100 mg Vital Signs - 8 hr 08/24/19 08/24/19 07:15 08:00 Temperature 97.9 F Pulse Rate 84 Respiratory 18 16 Rate Blood Pressure 140/84 (mmHg) O2 Sat by Pulse 100 Oximetry Oxygen Devices in Use Now: None Appearance: No acute distress, mild tremor at baseline, worse with intention Eyes: No Scleral Icterus Ears/Nose/Mouth/Throat: NL Teeth, Lips, Gums Neck: NL Appearance and Movements; NL JVP Respiratory: Symmetrical Chest Expansion and Respiratory Effort, Clear to Auscultation Cardiovascular: RRR, - - Some ectopy Abdominal: NL Sounds; No Tenderness; No Distention Lymphatic: No Cervical Adenopathy Extremities: No Edema Skin: - - 2+ non pitting edema to blt ankles only Neurological: Alert and Oriented x 3 Result Diagrams: 08/24/19 06:37 08/24/19 06:37 Diagnostic Imaging: CXR 08/16: No disease CTH 08/16: No disease Echo 08/16 Summary: - Left ventricle: The cavity size is normal. Wall thickness is moderately increased. Systolic function is at the lower limits of normal. The estimated ejection fraction is 50-55%. Wall motion is normal; there are no regional wall motion abnormalities. - Right ventricle: Systolic function is normal. - Mitral valve: There is trace to mild regurgitation. - Aortic valve: There is no evidence of stenosis. - Tricuspid valve: There is trace regurgitation. - Ascending aorta: The ascending aorta is mildly dilated at 3.6 cm. 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 - Compared to study of 12/07/15, there is little change. Nuc Med Stress 08/17 IMPRESSION: #. Diffuse hypokinesia with estimated LEFT ventricular ejection fraction of 35% and dilated LEFT ventricle with estimated end-diastolic volume of 130 mL. #. No compelling evidence for focal stress-induced ischemia or presence of an infarct. Balanced ischemia due to 3 vessel disease is not excluded in this setting. EKG Data: 08/16 EKG: Sinus ectopy but no acute ischemia Assess/Plan/Problems-Billing Assessment: 59M PMH alcohol use disorder, IDDM A1C 7.2, HTN, migraines, mitral regurg, obesity, hx CVA, likely CAD, GERD, off all meds, presents with atypical CP with a neg r/o ACS and course c/b alcohol withdrawal, sig weakness. Awaiting insurance auth and STR - Patient Problems (1) Chest pain Current Visit: Yes Status: Acute Code(s): R07.9 - CHEST PAIN, UNSPECIFIED SNOMED Code(s): 60280782 Comment: - CP not typical but has multiple risk factors. TTE normal, nuclear stress intermediate risk. Pt without chest pain after admission. Trop to 0.03 likely demand in setting of withdrawal. - Cardiology recommends to cont home meds: aspirin and statin - No concerning arrythmia in setting of irregular HR, dc tele (2) Alcohol abuse Current Visit: Yes Status: Acute Code(s): F10.10 - ALCOHOL ABUSE, UNCOMPLICATED SNOMED Code(s): 58561411 Comment: - s/p WAM protocol, ativan and PO librium. Previously in rehab at [facility]. - appreciate SW and CM input - cont thiamine/folate (3) Acute kidney injury Current Visit: Yes Status: Acute Code(s): N17.9 - ACUTE KIDNEY FAILURE, UNSPECIFIED SNOMED Code(s): 42092315 Comment: Unknown baseline creatinine, so may not be SAMMY. Likely CKD. Cr now at 1.1 - avoid nephrotoxic medications and renally dose medications - pending outside records for baseline BMP - Lisinopril 10mg for renal protection, resume Metformin renally dosed (4) Macrocytic anemia Current Visit: Yes Status: Acute Priority: High Code(s): D53.9 - NUTRITIONAL ANEMIA, UNSPECIFIED SNOMED Code(s): 50368418 Comment: Likely due to high alcohol use effect on hematopoietic system. No evidence for bleeding or hemolysis. - etoh use treatment as above - f/u with age-appropriate cancer screening as outpatient (5) Diabetes Current Visit: Yes Status: Chronic Code(s): E11.9 - TYPE 2 DIABETES MELLITUS WITHOUT COMPLICATIONS SNOMED Code(s): 81763182 Comment: A1c 7.3% off all meds for one year. S/p gastric sleeve surgery. - short-acting ISS with high requirements, will add insulin glargine 10u daily ( pt reports requiring this previously)-Consider Victoza on d/c - previously refused metformin, though seemed dose dependent, resume renal dose - cont sitagliptin 100 - carb control (6) HTN (hypertension) Current Visit: Yes Status: Chronic Code(s): I10 - ESSENTIAL (PRIMARY) HYPERTENSION SNOMED Code(s): 73625423 Comment: - Amlodipine, Lisinopril->had puffy anles from amldopine, d/c - Restart home HCTZ 25mg (7) History of CVA (cerebrovascular accident) Current Visit: Yes Status: Chronic Code(s): Z86.73 - PRSNL HX OF TIA (TIA), AND CEREB INFRC W/O RESID DEFICITS SNOMED Code(s): 553713220 Comment: - Continue ASA and statin. (8) Hyperlipidemia Current Visit: No Status: Chronic Code(s): E78.5 - HYPERLIPIDEMIA, UNSPECIFIED SNOMED Code(s): 80940288 Comment: - Continue home atorvastatin. (9) GERD (gastroesophageal reflux disease) Current Visit: Yes Status: Acute Code(s): K21.9 - GASTRO-ESOPHAGEAL REFLUX DISEASE WITHOUT ESOPHAGITIS SNOMED Code(s): 175222196 Comment: - Cont H2 jeyson (10) DVT prophylaxis Current Visit: Yes Status: Acute Code(s): ZOF6290 - SNOMED Code(s): 495832466 Comment: - LMWH (11) Full code status Current Visit: No Status: Acute Code(s): Z78.9 - OTHER SPECIFIED HEALTH STATUS SNOMED Code(s): 984456133 Status and Disposition: Inpatient, social work issues with no insurance PT 08/24-Rec inpatient rehab Dispo still for insurance and STR Carb Consistent diet
[2019-08-24] MEDS: Naltrexone TAB* 50 MG TAB PO SCH (17:35)
[2019-08-24] MEDS: Enoxaparin(*) 40 MG/0.4 ML SYR SUBCUT SCH (19:57)
--- NOTE | 2019-08-25 08:08 | PN ---
Subjective Date of Service: 08/25/19 Interval History: HD10 on 08/25 59M PMH alcohol use disorder, IDDM, HTN, migraines, mitral regurg, obesity, hx CVA, CAD, GERD, off all meds on presentation, presents with atypical CP with a neg r/o ACS and course c/b alcohol withdrawal, sig weakness. Overnight VSS, EXCEPT this AM where he was HTN to systolic 170s before meds-he has had c/o blt ankle swelling likely as a rxn to Amlodipine and this was changed to HCTZ yesterday, may need to change meds further Labs: Stable anemia and Cr improving now to 1.18-awaiting 08/25 labs This morning,n generally doing well would like to take a shower, frustrated with ankl;les, will give one trime dose of lasix Objective Active Medications: Acetaminophen (Tylenol Tab*) 650 mg PO Q4H PRN PRN Reason: MILD PAIN or TEMP > 100.4 Last Admin: 08/24/19 17:39 Dose: 650 mg Aspirin (Aspirin 81 Mg Chew Tab*) 81 mg PO DAILY [facility] Last Admin: 08/24/19 08:23 Dose: 81 mg Atorvastatin Calcium (Lipitor*) 40 mg PO DAILY [facility] Last Admin: 08/24/19 08:23 Dose: 40 mg Dextrose (D50w Syringe 50 Ml*) 12.5 gm IV PUSH .FOR FS < 60 - SS PRN PRN Reason: FS < 60 Docusate Sodium (Colace Cap*) 200 mg PO 0900,2100 [facility] Last Admin: 08/24/19 19:57 Dose: 200 mg Enoxaparin Sodium (Lovenox(*)) 40 mg SUBCUT BEDTIME [facility] Last Admin: 08/24/19 19:57 Dose: 40 mg Famotidine (Pepcid Tab*) 20 mg PO DAILY PRN PRN Reason: heart burn Folic Acid (Folvite Tab*) 1 mg PO DAILY [facility] Last Admin: 08/24/19 08:22 Dose: 1 mg Hydrochlorothiazide (Hydrodiuril Tab*) 25 mg PO DAILY [facility] Last Admin: 08/24/19 09:07 Dose: 25 mg Insulin Glargine (Lantus(*)) 10 units SUBCUT Q24H [facility] Last Admin: 08/24/19 09:20 Dose: 10 units Insulin Human Lispro (Humalog*) 0 units SUBCUT AC [facility]; Protocol Last Admin: 08/24/19 17:35 Dose: 3 units Lisinopril (Prinivil Tab*) 10 mg PO DAILY [facility] Last Admin: 08/24/19 08:23 Dose: 10 mg Melatonin (Melatonin) 3 mg PO BEDTIME [facility] Last Admin: 08/24/19 19:57 Dose: 3 mg Metformin HCl (Glucophage*) 500 mg PO DAILY [facility] Last Admin: 08/24/19 08:23 Dose: 500 mg Multivitamins/Minerals (Theragran/Minerals Tab*) 1 tab PO DAILY [facility] Last Admin: 08/24/19 09:07 Dose: 1 tab Naltrexone HCl (Naltrexone Tab*) 50 mg PO QPM [facility]; Protocol Last Admin: 08/24/19 17:35 Dose: 50 mg Ondansetron HCl (Zofran Inj*) 4 mg IV Q4H PRN PRN Reason: NAUSEA/VOMITING Last Admin: 08/18/19 02:46 Dose: 4 mg Polyethylene Glycol/Electrolytes (Miralax (17 Gm Dose Virgilio)) 17 gm PO DAILY PRN PRN Reason: CONSTIPATION Last Admin: 08/24/19 08:29 Dose: 17 gm Senna (Senokot 8.6 Mg Tab*) 1 tab PO BID PRN PRN Reason: CONSTIPATION Last Admin: 08/24/19 08:23 Dose: 1 tab Sitagliptin Phosphate (Januvia (Nf)) 100 mg PO DAILY [facility]; Protocol Last Admin: 08/24/19 08:22 Dose: 100 mg Thiamine HCl (Vitamin B-1 Tab*) 100 mg PO DAILY [facility] Last Admin: 08/24/19 08:23 Dose: 100 mg Vital Signs - 8 hr 08/25/19 08/25/19 08/25/19 03:49 07:35 07:50 Temperature 98.2 F 97.6 F Pulse Rate 88 91 Respiratory 20 18 Rate Blood Pressure 135/62 176/86 170/90 (mmHg) O2 Sat by Pulse 100 100 Oximetry Oxygen Devices in Use Now: None Appearance: NO acute distress Ears/Nose/Mouth/Throat: NL Teeth, Lips, Gums Neck: NL Appearance and Movements; NL JVP Respiratory: Symmetrical Chest Expansion and Respiratory Effort, Clear to Auscultation Cardiovascular: - - mild ectopy no murmur Extremities: - - 2+ non pitting edema Skin: No Rash or Ulcers Neurological: Alert and Oriented x 3 Result Diagrams: 08/24/19 06:37 08/25/19 08:10 Diagnostic Imaging: CXR 2: No disease CTH 08/16: No disease Echo 08/16 Summary: - Left ventricle: The cavity size is normal. Wall thickness is moderately increased. Systolic function is at the lower limits of normal. The estimated ejection fraction is 50-55%. Wall motion is normal; there are no regional wall motion abnormalities. - Right ventricle: Systolic function is normal. - Mitral valve: There is trace to mild regurgitation. - Aortic valve: There is no evidence of stenosis. - Tricuspid valve: There is trace regurgitation. - Ascending aorta: The ascending aorta is mildly dilated at 3.6 cm. 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 - Compared to study of 12/07/15, there is little change. Nuc Med Stress 08/17 IMPRESSION: #. Diffuse hypokinesia with estimated LEFT ventricular ejection fraction of 35% and dilated LEFT ventricle with estimated end-diastolic volume of 130 mL. #. No compelling evidence for focal stress-induced ischemia or presence of an infarct. Balanced ischemia due to 3 vessel disease is not excluded in this setting. EKG Data: 08/16 EKG: Sinus ectopy but no acute ischemia Assess/Plan/Problems-Billing Assessment: 59M PMH alcohol use disorder, IDDM A1C 7.2, HTN, migraines, mitral regurg, obesity, hx CVA, likely CAD, GERD, off all meds, presents with atypical CP with a neg r/o ACS and course c/b alcohol withdrawal, sig weakness. Awaiting insurance auth and STR - Patient Problems (1) Chest pain Current Visit: Yes Status: Acute Code(s): R07.9 - CHEST PAIN, UNSPECIFIED SNOMED Code(s): 86830263 Comment: - CP not typical but has multiple risk factors. TTE normal, nuclear stress intermediate risk. Pt without chest pain after admission. Trop to 0.03 likely demand in setting of withdrawal. - Cardiology recommends to cont home meds: aspirin and statin - No concerning arrythmia in setting of irregular HR (2) Alcohol abuse Current Visit: Yes Status: Acute Code(s): F10.10 - ALCOHOL ABUSE, UNCOMPLICATED SNOMED Code(s): 47294498 Comment: - s/p WAM protocol, ativan and PO librium. Previously in rehab at [facility]. - appreciate SW and CM input - cont thiamine/folate -Naltrexone started 08/24 for ETOH cravings (3) Acute kidney injury Current Visit: Yes Status: Acute Code(s): N17.9 - ACUTE KIDNEY FAILURE, UNSPECIFIED SNOMED Code(s): 70574820 Comment: Unknown baseline creatinine, so may not be SAMMY. Likely CKD. Cr now at 1.1 - avoid nephrotoxic medications and renally dose medications - pending outside records for baseline BMP - Lisinopril 10mg for renal protection, resume Metformin renally dosed (4) Macrocytic anemia Current Visit: Yes Status: Acute Priority: High Code(s): D53.9 - NUTRITIONAL ANEMIA, UNSPECIFIED SNOMED Code(s): 85940129 Comment: Likely due to high alcohol use effect on hematopoietic system. No evidence for bleeding or hemolysis. - etoh use treatment as above - f/u with age-appropriate cancer screening as outpatient (5) Diabetes Current Visit: Yes Status: Chronic Code(s): E11.9 - TYPE 2 DIABETES MELLITUS WITHOUT COMPLICATIONS SNOMED Code(s): 30766485 Comment: A1c 7.3% off all meds for one year. S/p gastric sleeve surgery. - short-acting ISS with high requirements, added insulin glargine 10u daily ( pt reports requiring this previously)-Consider Victoza on d/c - previously refused metformin, though seemed dose dependent, resumed at renal dose - cont sitagliptin 100 - carb control (6) HTN (hypertension) Current Visit: Yes Status: Chronic Code(s): I10 - ESSENTIAL (PRIMARY) HYPERTENSION SNOMED Code(s): 17327232 Comment: - Lisinopril->had ankle edema from Norvasc, d/c - Restarted home HCTZ 25mg (7) History of CVA (cerebrovascular accident) Current Visit: Yes Status: Chronic Code(s): Z86.73 - PRSNL HX OF TIA (TIA), AND CEREB INFRC W/O RESID DEFICITS SNOMED Code(s): 879862575 Comment: - Continue ASA and statin. (8) Hyperlipidemia Current Visit: No Status: Chronic Code(s): E78.5 - HYPERLIPIDEMIA, UNSPECIFIED SNOMED Code(s): 33646941 Comment: - Continue home atorvastatin. (9) GERD (gastroesophageal reflux disease) Current Visit: Yes Status: Acute Code(s): K21.9 - GASTRO-ESOPHAGEAL REFLUX DISEASE WITHOUT ESOPHAGITIS SNOMED Code(s): 780323388 Comment: - Cont H2 jeyson (10) DVT prophylaxis Current Visit: Yes Status: Acute Code(s): JNS1612 - SNOMED Code(s): 415822547 Comment: - LMWH (11) Full code status Current Visit: No Status: Acute Code(s): Z78.9 - OTHER SPECIFIED HEALTH STATUS SNOMED Code(s): 717957178 Status and Disposition: Inpatient, social work issues with no insurance PT 08/24-Rec inpatient rehab Dispo still for insurance and STR Carb Consistent diet
[2019-08-25] MEDS: Polyethylene Glycol 3350* 17 GM PACKET PO PRN (08:09)
[2019-08-25] MEDS: Hydrochlorothiazide TAB* 25 MG PO SCH (08:11)
[2019-08-25] MEDS: Atorvastatin* 40 MG TAB PO SCH (08:11)
[2019-08-25] MEDS: metFORMIN* 500 MG TAB PO SCH (08:11)
[2019-08-25] MEDS: Lisinopril TAB* 5 MG PO SCH (08:11)
[2019-08-25] MEDS: Aspirin 81 mg CHEW TAB* 81 MG TAB.CHEW PO SCH (08:11)
[2019-08-25] MEDS: Thiamine TAB* 100 MG TAB PO SCH (08:11)
[2019-08-25] MEDS: Folic Acid TAB* 1 MG PO SCH (08:11)
[2019-08-25] MEDS: Multivitamins/Minerals TAB PO SCH (08:11)
[2019-08-25] MEDS: Docusate CAP* 100 MG PO SCH ×2 (08:11→20:58)
[2019-08-25] MEDS: Acetaminophen TAB* 325 MG PO PRN ×2 (08:12→20:58)
[2019-08-25 08:39] LABS: BUN/Creatinine Ratio 20.5 (8-20); EGFR African American 73.6 (>60); EGFR Non-African American 60.8 (>60); Potassium 3.9 mmol/L (3.5-5.0)
[2019-08-25] MEDS: CMC:SitaGLIPtin (NF) 100 MG TAB PO SCH (10:08)
[2019-08-25] MEDS: Insulin GLARGINE(*) 1 UNITS UNIT SUBCUT SCH (10:08)
[2019-08-25] MEDS: Insulin LISPRO* 1 UNITS UNIT SUBCUT SCH ×3 (10:08→18:03)
[2019-08-25] MEDS ORDERED: Furosemide TAB* 40 MG PO ONE (11:00)
[2019-08-25] MEDS: Naltrexone TAB* 50 MG TAB PO SCH (18:03)
[2019-08-25] MEDS: Melatonin 3 MG TAB PO SCH (20:58)
[2019-08-25] MEDS: Enoxaparin(*) 40 MG/0.4 ML SYR SUBCUT SCH (20:59)
[2019-08-26] MEDS: Insulin LISPRO* 1 UNITS UNIT SUBCUT SCH ×3 (08:08→17:06)
[2019-08-26] MEDS: CMC:SitaGLIPtin (NF) 100 MG TAB PO SCH (08:37)
[2019-08-26] MEDS: Folic Acid TAB* 1 MG PO SCH (08:38)
[2019-08-26] MEDS: Hydrochlorothiazide TAB* 25 MG PO SCH (08:38)
[2019-08-26] MEDS: Atorvastatin* 40 MG TAB PO SCH (08:39)
[2019-08-26] MEDS: Thiamine TAB* 100 MG TAB PO SCH (08:39)
[2019-08-26] MEDS: Lisinopril TAB* 5 MG PO SCH (08:39)
[2019-08-26] MEDS: Acetaminophen TAB* 325 MG PO PRN ×2 (08:40→21:44)
[2019-08-26] MEDS: Aspirin 81 mg CHEW TAB* 81 MG TAB.CHEW PO SCH (08:42)
[2019-08-26] MEDS: Multivitamins/Minerals TAB PO SCH (08:42)
[2019-08-26] MEDS: metFORMIN* 500 MG TAB PO SCH (08:43)
--- NOTE | 2019-08-26 09:43 | PN ---
Subjective Date of Service: 08/26/19 Interval History: Pt stated that he is too unsteady to be able to go back to his apartment and requests STR Has "small CP" earlier on today, now resolved Objective Active Medications: Acetaminophen (Tylenol Tab*) 650 mg PO Q4H PRN PRN Reason: MILD PAIN or TEMP > 100.4 Last Admin: 08/26/19 08:40 Dose: 650 mg Aspirin (Aspirin 81 Mg Chew Tab*) 81 mg PO DAILY [facility] Last Admin: 08/26/19 08:42 Dose: 81 mg Atorvastatin Calcium (Lipitor*) 40 mg PO DAILY [facility] Last Admin: 08/26/19 08:39 Dose: 40 mg Dextrose (D50w Syringe 50 Ml*) 12.5 gm IV PUSH .FOR FS < 60 - SS PRN PRN Reason: FS < 60 Docusate Sodium (Colace Cap*) 200 mg PO 0900,2100 [facility] Last Admin: 08/25/19 20:58 Dose: Not Given Enoxaparin Sodium (Lovenox(*)) 40 mg SUBCUT BEDTIME [facility] Last Admin: 08/25/19 20:59 Dose: 40 mg Famotidine (Pepcid Tab*) 20 mg PO DAILY PRN PRN Reason: heart burn Folic Acid (Folvite Tab*) 1 mg PO DAILY [facility] Last Admin: 08/26/19 08:38 Dose: 1 mg Hydrochlorothiazide (Hydrodiuril Tab*) 25 mg PO DAILY [facility] Last Admin: 08/26/19 08:38 Dose: 25 mg Insulin Glargine (Lantus(*)) 10 units SUBCUT Q24H [facility] Last Admin: 08/25/19 10:08 Dose: 10 units Insulin Human Lispro (Humalog*) 0 units SUBCUT AC [facility]; Protocol Last Admin: 08/26/19 08:08 Dose: 3 units Lisinopril (Prinivil Tab*) 10 mg PO DAILY [facility] Last Admin: 08/26/19 08:39 Dose: 10 mg Melatonin (Melatonin) 3 mg PO BEDTIME [facility] Last Admin: 08/25/19 20:58 Dose: 3 mg Metformin HCl (Glucophage*) 500 mg PO DAILY [facility] Last Admin: 08/26/19 08:43 Dose: 500 mg Multivitamins/Minerals (Theragran/Minerals Tab*) 1 tab PO DAILY [facility] Last Admin: 08/26/19 08:42 Dose: 1 tab Naltrexone HCl (Naltrexone Tab*) 50 mg PO QPM [facility]; Protocol Last Admin: 08/25/19 18:03 Dose: 50 mg Ondansetron HCl (Zofran Inj*) 4 mg IV Q4H PRN PRN Reason: NAUSEA/VOMITING Last Admin: 08/18/19 02:46 Dose: 4 mg Polyethylene Glycol/Electrolytes (Miralax (17 Gm Dose Virgilio)) 17 gm PO DAILY PRN PRN Reason: CONSTIPATION Last Admin: 08/25/19 08:09 Dose: 17 gm Senna (Senokot 8.6 Mg Tab*) 1 tab PO BID PRN PRN Reason: CONSTIPATION Last Admin: 08/24/19 08:23 Dose: 1 tab Sitagliptin Phosphate (Januvia (Nf)) 100 mg PO DAILY [facility]; Protocol Last Admin: 08/26/19 08:37 Dose: 100 mg Thiamine HCl (Vitamin B-1 Tab*) 100 mg PO DAILY [facility] Last Admin: 08/26/19 08:39 Dose: 100 mg Vital Signs - 8 hr 08/26/19 03:15 Temperature 98.3 F Pulse Rate 79 Respiratory 16 Rate Blood Pressure 142/86 (mmHg) O2 Sat by Pulse 100 Oximetry Oxygen Devices in Use Now: None Appearance: 59 yo M in nAD, aAOx3 Eyes: No Scleral Icterus, PERRLA Ears/Nose/Mouth/Throat: NL Teeth, Lips, Gums, Mucous Membranes Moist Neck: NL Appearance and Movements; NL JVP, Trachea Midline Respiratory: Symmetrical Chest Expansion and Respiratory Effort, Clear to Auscultation Cardiovascular: NL Sounds; No Murmurs; No JVD, RRR Abdominal: NL Sounds; No Tenderness; No Distention Lymphatic: No Cervical Adenopathy Extremities: No Clubbing, Cyanosis, - - +1 pitting ankle edema b/l Skin: No Nodules or Sclerosis Neurological: Alert and Oriented x 3, NL Muscle Strength and Tone Result Diagrams: 08/24/19 06:37 08/25/19 08:10 Diagnostic Imaging: CXR 2/3: No disease CTH 2/3: No disease Echo 2/3 Summary: - Left ventricle: The cavity size is normal. Wall thickness is moderately increased. Systolic function is at the lower limits of normal. The estimated ejection fraction is 50-55%. Wall motion is normal; there are no regional wall motion abnormalities. - Right ventricle: Systolic function is normal. - Mitral valve: There is trace to mild regurgitation. - Aortic valve: There is no evidence of stenosis. - Tricuspid valve: There is trace regurgitation. - Ascending aorta: The ascending aorta is mildly dilated at 3.6 cm. 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 - Compared to study of 12/07/15, there is little change. Nuc Med Stress 08/17 IMPRESSION: #. Diffuse hypokinesia with estimated LEFT ventricular ejection fraction of 35% and dilated LEFT ventricle with estimated end-diastolic volume of 130 mL. #. No compelling evidence for focal stress-induced ischemia or presence of an infarct. Balanced ischemia due to 3 vessel disease is not excluded in this setting. EKG Data: 08/16 EKG: Sinus ectopy but no acute ischemia Assess/Plan/Problems-Billing Assessment: 59M PMH alcohol use disorder, IDDM A1C 7.2, HTN, migraines, mitral regurg, obesity, hx CVA, likely CAD, GERD, off all meds, presents with atypical CP with a neg r/o ACS and course c/b alcohol withdrawal, sig weakness. Awaiting insurance auth and STR - Patient Problems (1) Alcohol abuse Comment: - s/p WAM protocol, ativan and PO librium. Previously in rehab at [facility]. - appreciate SW and CM input - cont thiamine/folate -Naltrexone started 08/24 for ETOH cravings (2) Chest pain Comment: - CP not typical but has multiple risk factors. TTE normal, nuclear stress intermediate risk. Pt without chest pain after admission. Trop to 0.03 likely demand in setting of withdrawal. - Cardiology recommends to cont home meds: aspirin and statin - No concerning arrythmia in setting of irregular HR (3) Macrocytic anemia Comment: Likely due to high alcohol use effect on hematopoietic system. No evidence for bleeding or hemolysis. - etoh use treatment as above - f/u with age-appropriate cancer screening as outpatient (4) Diabetes Comment: A1c 7.3% off all meds for one year. S/p gastric sleeve surgery. - short-acting ISS with high requirements, added insulin glargine 10u daily ( pt reports requiring this previously)-Consider Victoza on d/c - previously refused metformin, though seemed dose dependent, resumed at renal dose - cont sitagliptin 100 - carb control (5) HTN (hypertension) Comment: - Lisinopril->had ankle edema from Norvasc, d/c - Restarted home HCTZ 25mg (6) History of CVA (cerebrovascular accident) Comment: - Continue ASA and statin. (7) CKD (chronic kidney disease) stage 3, GFR 30-59 ml/min Comment: creat at baseline (8) DVT prophylaxis Comment: - LMWH Status and Disposition: Inpatient, social work issues with no insurance Needs STR
[2019-08-26] MEDS: Insulin GLARGINE(*) 1 UNITS UNIT SUBCUT SCH (10:32)
[2019-08-26] MEDS ORDERED: Lisinopril TAB* 10 MG PO SCH (11:14)
[2019-08-26] MEDS: Docusate CAP* 100 MG PO SCH ×2 (12:24→20:21)
[2019-08-26] MEDS: glyBURIDE TAB* 2.5 MG PO SCH (16:02)
[2019-08-26] MEDS: Naltrexone TAB* 50 MG TAB PO SCH (18:02)
[2019-08-26] MEDS: Melatonin 3 MG TAB PO SCH (21:44)
[2019-08-26] MEDS: Enoxaparin(*) 40 MG/0.4 ML SYR SUBCUT SCH (21:46)
[2019-08-27 08:03] VITALS: BP 109/77
[2019-08-27] MEDS: metFORMIN* 500 MG TAB PO SCH (09:11)
[2019-08-27] MEDS: Docusate CAP* 100 MG PO SCH (09:11)
[2019-08-27] MEDS: Insulin LISPRO* 1 UNITS UNIT SUBCUT SCH (09:11)
[2019-08-27] MEDS: Folic Acid TAB* 1 MG PO SCH (09:11)
[2019-08-27] MEDS: Thiamine TAB* 100 MG TAB PO SCH (09:11)
[2019-08-27] MEDS: Aspirin 81 mg CHEW TAB* 81 MG TAB.CHEW PO SCH (09:11)
[2019-08-27] MEDS: Atorvastatin* 40 MG TAB PO SCH (09:11)
[2019-08-27] MEDS: Multivitamins/Minerals TAB PO SCH (09:11)
[2019-08-27] MEDS: glyBURIDE TAB* 2.5 MG PO SCH (09:13)
[2019-08-27] MEDS: Acetaminophen TAB* 325 MG PO PRN (09:14)
--- NOTE | 2019-08-27 13:10 | DS ---
CC: Dr. Mena; Dr. Rudd * DISCHARGE SUMMARY: DATE OF ADMISSION: 08/16/19 DATE OF DISCHARGE: 08/27/19 PRIMARY CARE PROVIDER: Dr. Mena. DISPOSITION AT DISCHARGE: Home. CONDITION AT DISCHARGE: Stable. DISCHARGE DIAGNOSES: 1. Intermittent chest pain and dyspnea with intermediate probability cardiac stress test documented during the hospital stay. 2. Mild metabolic acidosis, likely due to starvation ketoacidosis. 3. Mild elevation of liver function tests due to mild alcoholic hepatitis. 4. Alcohol abuse with alcohol withdrawal symptoms during the hospital stay. SECONDARY DIAGNOSES: 1. Diabetes type 2. 2. Hypertension. 3. Hyperlipidemia. 4. Migraines. 5. Mitral regurgitation. 6. Obesity. 7. History of cerebrovascular accident. 8. Alcoholism. 9. History of gastric sleeve surgery in May of 2016. 10. Gastroesophageal reflux disease. 11. Physical deconditioning. The patient underwent physical therapy evaluation. Initially, he was deemed to be a candidate for short-term rehabilitation, but by the end of his admission, he was noted to be ambulating without any need of skilled physical therapy and ready to go home. LABORATORY DATA AND STUDIES PERFORMED DURING HOSPITAL STAY: On 08/24/19, white blood cell count of 4.1, hemoglobin 9.5, hematocrit of 27, and platelets of 257. On 08/25/19, sodium of 137, potassium 3.9, chloride 110, carbon dioxide 19 , BUN 25, creatinine 1.22. Hemoglobin A1c was noted to be 7.3 on 08/17/19. The patient's TSH was 1.7 on 08/16/19. Transthoracic echocardiogram obtained on 08/17/19 showed EF of 50% to 55% with no regional wall motion abnormalities and comparing with 2017, little change. There was noted calcified plaque in the ascending aorta and aorta mildly dilated at 3.6 cm in the ascending portion. Cardiac stress test documented on 08/17/19 showed intermediate risk due to diffuse hypokinesia with estimated left ventricular ejection fraction of 35% and dilated left ventricle with estimated end diastolic volume of 130 mL. There was no compelling evidence of focal stress-induced ischemia or presence of an infarct. Bilateral ischemia due to 3-vessel disease is not excluded in this setting. HOSPITALIZATION COURSE: Tee Mederos is a 59-year-old male with a history of alcoholism, who presented to the hospital on 08/16/19 with multiple issues including intermittent chest pain, dyspnea, dizziness, exacerbation of chronic pain. The patient was noted to have metabolic acidosis likely due to starvation ketoacidosis and dehydration. He has chronic renal insufficiency, which is chronic kidney disease, stage 3 due to diabetes, had worsened at admission and improved with intravenous fluids. Throughout the patient's hospital stay, in regards to his chest pain, he was evaluated with cardiac stress test, which showed EF of 35%. Furthermore, his echocardiogram showed EF of 55%. The case was discussed between the hospitalist service and the cardiology service with Dr. Rudd. It was noted that the patient's echocardiogram showed EF of 55% and no wall motion abnormality, which was more accurate according to Cardiology. The patient was recommended to continue aspirin and Lipitor and his chest pain was deemed likely noncardiac. In regards to the patient's alcoholism, the patient was withdrawing throughout his hospital stay. By the time of discharge, he was through withdrawal and he was ready to go home. He is planning to go to [facility] for further treatment of his addiction. The patient was also noted to have no insurance throughout his hospital stay. power wood sawyer and social workers were actively working in regards to trying to obtain insurance for the patient. Unfortunately were not successful. The patient is recommended to follow up with [facility] in regards to that and social workers at that facility. Please note that at the end of patient's hospital stay, he was noted to have orthostatic dizziness and orthostatic hypotension. Due to that, his hydrochlorothiazide and lisinopril were held. They will likely need to be restarted in approximately a week or so when the patient sees Dr. Mena for followup if his blood pressures are elevated. The patient's hypertension was initially uncontrolled and he was placed on amlodipine. Due to his intravenous fluid treatment as well as amlodipine, he developed leg edema. Blood pressure is resolving by the time of discharge. Due to that, his amlodipine was discontinued. At discharge, the patient is going to get prescriptions for aspirin, Lipitor, metformin, and glyburide that were started during this patient's hospital stay. His hemoglobin A1c was not greatly elevated at 7.4 and his sugars appeared to be well controlled on the metformin and glyburide. He is going to have his prescriptions sent over to [facility] and a caseworker protective services is arranged for the patient to receive gift cards so that he can pay for those prescriptions while waiting for his insurance to come through. Please note that for further followup, the patient is recommended to follow up with Dr. Mena in approximately 4 to 7 days. PHYSICAL EXAM AT THE TIME OF DISCHARGE: Blood pressure 109/77, heart rate of 93 and regular, respiratory rate 17, oxygen saturation 100% on room air, temperature 96.7. General: The patient is a very pleasant 59-year-old male who is in no acute distress. The patient is alert and oriented x3. HEENT: Head: Atraumatic, normocephalic. Eyes: Pupils equal and reactive to light and accommodation. Oropharynx clear. Mucosa moist. Neck: Supple. No JVD. No bruits bilaterally. Cardiovascular: Regular rate and rhythm. No murmur. Respiratory: Clear to auscultation bilaterally. Abdomen: Soft, nontender. Bowel sounds present in all 4 quadrants. Extremities: There is +1 pitting pedal edema bilaterally. Pulses +2 bilaterally. No clubbing or cyanosis. On neuro evaluation, speech is clear. Cranial nerves II through XII grossly intact. Motor strength is 5/5 bilaterally. Please note that this is a short summary of the patient's hospital stay. Please refer to further medical records for details. TIME SPENT: Approximately 45 minutes was spent on the patient's discharge. [id number]/[facility] #: [id number] RAVI
== END 2019-08-27 12:10 | disposition home or self-care (01) | DRG 641 ==
LOC: ED 15:16 → MEDTELE 18:23 → ED 19:33 → MEDTELE 08-18 04:44 → MED 08-24 23:35
PROVIDERS: ADMIT Internal Medicine; ATTEND Internal Medicine
PROC: 4A02XM4 Measurement of Cardiac Total Activity, External Approach (ICD-10-PCS; principal; 2019-08-17)
DX: E87.2 Acidosis (principal); F10.239 Alcohol dependence with withdrawal, unspecified; N17.9 Acute kidney failure, unspecified; T73.0XXA Starvation, initial encounter; E86.0 Dehydration; R07.89 Other chest pain; K70.10 Alcoholic hepatitis without ascites; Y90.9 Presence of alcohol in blood, level not specified; E11.22 Type 2 diabetes mellitus with diabetic chronic kidney disease; I12.9 Hypertensive chronic kidney disease with stage 1 through stage 4 chronic kidney disease, or unspecified chronic kidney disease; E78.5 Hyperlipidemia, unspecified; N18.3 Chronic kidney disease, stage 3 (moderate); G43.909 Migraine, unspecified, not intractable, without status migrainosus; R33.9 Retention of urine, unspecified; D50.9 Iron deficiency anemia, unspecified; E66.9 Obesity, unspecified; K21.9 Gastro-esophageal reflux disease without esophagitis; G47.30 Sleep apnea, unspecified; R79.89 Other specified abnormal findings of blood chemistry; I34.0 Nonrheumatic mitral (valve) insufficiency; G89.29 Other chronic pain; R60.0 Localized edema; I95.1 Orthostatic hypotension; T46.1X5A Adverse effect of calcium-channel blockers, initial encounter; Y92.239 Unspecified place in hospital as the place of occurrence of the external cause; Z68.32 Body mass index [BMI] 32.0-32.9, adult; Z86.73 Personal history of transient ischemic attack (TIA), and cerebral infarction without residual deficits; Z98.84 Bariatric surgery status; Z87.891 Personal history of nicotine dependence; Z91.14 Patient's other noncompliance with medication regimen; Z79.82 Long term (current) use of aspirin; Z79.84 Long term (current) use of oral hypoglycemic drugs
CPT/HCPCS: 36415; 70450; 71045; 78452; 80048; 80053; 80061; 80320; 81003; 81015; 82140; 82436; 82550; 82553; 82570; 82607; 82746; 82803; 83036; 83605; 83735; 83880; 84133; 84300; 84443; 84484; 85025; 85027; 90686; 90732; 93005; 93017; 93306; 96365; 96375; 99284; A9270-GY; A9502; C8929; G0480; J0280; J1650; J2060; J2405; J2785; J3411; J3475

== ENCOUNTER 2019-08-27 13:53 | Observation (INO) | payer SELFPAY ==
--- NOTE | 2019-08-27 16:02 | ED ---
Complex/Multi-Sys Presentation - HPI Summary HPI Summary: Patient is a 59 y/o M presenting to the ED for a chief complaint of right hand and right knee pain after a fall on 08/27/19. Patient states that he hit his head during the fall. He notes abrasions on the bilateral knees. He denies a loss of consciousness. No aggravating or alleviating factors are reported. Patient was discharged from [facility] on 08/27/19, but patient told staff that he did not feel stable enough to go home. After discharge, he went to [facility] for an evaluation, and while going to pay the parking meter, he fell. He was unable to be seen at [facility]. PMHx is significant for DM. - History Of Current Complaint Chief Complaint: EDFall Time Seen by Provider: 08/27/19 15:52 Hx Obtained From: Patient Onset/Duration: Sudden Onset, Still Present Timing: Constant Severity Currently: Moderate Severity Initially: Moderate Aggravating Factor(s): Nothing Alleviating Factor(s): Nothing Associated Signs And Symptoms: Positive: Recent Trauma - Fall. Negative: Syncope - LOC Related History: Recent Hospitalization - Discharged 08/27/19 - Allergies/Home Medications Allergies/Adverse Reactions: Allergies Allergy/AdvReac Type Severity Reaction Status Date / Time No Known Allergies Allergy Verified 08/27/19 14:02 PMH/Surg Hx/FS Hx/Imm Hx Previously Healthy: Yes Endocrine/Hematology History: Reports: Hx Diabetes Denies: Hx Thyroid Disease Cardiovascular History: Reports: Hx Valvular Heart Disease, Other Cardiovascular Problems/Disorders - mitral valve regurgitation Denies: Hx Congestive Heart Failure, Hx Deep Vein Thrombosis, Hx Hypertension , Hx Myocardial Infarction, Hx Pacemaker/ICD Respiratory History: Reports: Hx Sleep Apnea - uses CPAP at night Denies: Hx Asthma, Hx Chronic Obstructive Pulmonary Disease (COPD), Hx Lung Cancer, Hx Pneumonia, Hx Pulmonary Embolism GI History: Reports: Hx Gastroesophageal Reflux Disease Denies: Hx Gall Bladder Disease, Hx Gastrointestinal Bleed, Hx Ulcer, Hx Urosepsis History: Denies: Hx Kidney Stones, Hx Renal Disease Musculoskeletal History: Reports: Hx Orthopedic Injury - right knee Sensory History: Reports: Hx Contacts or Glasses Denies: Hx Legally Blind, Hx Deafness, Hx Hearing Aid Opthamlomology History: Reports: Hx Contacts or Glasses Denies: Hx Legally Blind EENT History: Denies: Hx Deafness Neurological History: Denies: Hx Dementia, Hx Migraine, Hx Seizures, Hx Transient Ischemic Attacks (TIA) Psychiatric History: Reports: Hx Anxiety, Hx Depression, Hx Inpatient Treatment , Hx Community Mental Health Tx, Hx Substance Abuse Denies: Hx Attention Deficit Hyperactivity Disorder, Hx Eating Disorder, Hx Panic Disorder, Hx Post Traumatic Stress Disorder, Hx Schizophrenia, Hx Bipolar Disorder, Hx Suicide Attempt, Hx of Violent Episodes Against Others, Other Psychiatric Issues/Disorders - Surgical History Surgical History: Yes Surgery Procedure, Year, and Place: [facility] ortho sx in past meniscus/a ligament; achilles tendon repair. Hx Anesthesia Reactions: No Infectious Disease History: No Infectious Disease History: Denies: Hx Clostridium Difficile, Hx Hepatitis, Hx Human Immunodeficiency Virus (HIV), Hx of Known/Suspected MRSA, Hx Shingles, Hx Tuberculosis, Hx Known/ Suspected VRE, Hx Known/Suspected VRSA, History Other Infectious Disease, Traveled Outside the in Last 30 Days - Family History Known Family History: Positive: Cardiac Disease, Renal Disease - Social History Occupation: Unemployed Alcohol Use: Daily Alcohol Amount: small amount daily Hx Substance Use: No Substance Use Type: Reports: None Substance Use Comment - Amount & Last Used: last drink 08/29/16 at 1000 Hx Tobacco Use: Yes Smoking Status (MU): Former Smoker Type: Cigarettes Review of Systems Positive: Arthralgia - Right knee, Myalgia - Right hand Positive: Other - Positive abrasions on the bilateral LE Negative: Syncope - LOC All Other Systems Reviewed And Are Negative: Yes Physical Exam - Summary Physical Exam Summary: Appearance: The patient is well-nourished in no acute distress and in no acute pain. Skin: The skin is warm and dry, and skin color reflects adequate perfusion. HEENT: The head is normocephalic and atraumatic. The pupils are equal and reactive. The conjunctivae are clear and without drainage. Nares are patent and without drainage. Mouth reveals moist mucous membranes, and the throat is without erythema and exudate. The external ears are intact. The ear canals are patent and without drainage. The tympanic membranes are intact. Neck: The neck is supple with full range of motion and non-tender. There are no carotid bruits. There is no neck vein distension. Respiratory: Chest is non-tender. Lungs are clear to auscultation and breath sounds are symmetrical and equal. Cardiovascular: Heart is regular rate and rhythm. There is no murmur or rub auscultated. There is no peripheral edema and pulses are symmetrical and equal. Abdomen: The abdomen is soft and non-tender. There are normal bowel sounds heard in all four quadrants and there is no organomegaly palpated. Musculoskeletal: There is no back tenderness noted. Extremities are non-tender with full range of motion. There is good capillary refill. There is no peripheral edema or calf tenderness elicited. Neurological: Patient is alert and oriented to person, place and time. The patient has symmetrical motor strength in all four extremities. Cranial nerves are grossly intact. Deep tendon reflexes are symmetrical and equal in all four extremities. Tremors, but no focal neurological deficits. Psychiatric: The patient has an appropriate affect and does not exhibit any anxiety or depression. Triage Information Reviewed: Yes Vital Signs On Initial Exam: Initial Vitals Temp Pulse Resp BP Pulse Ox 97.0 F 97 18 150/108 100 08/27/19 13:57 08/27/19 13:57 08/27/19 13:57 08/27/19 13:57 08/27/19 13:57 Vital Signs Reviewed: Yes Procedures - Sedation Patient Received Moderate/Deep Sedation with Procedure: No Diagnostics - Vital Signs Vital Signs Temp Pulse Resp BP Pulse Ox 08/27/19 13:57 97.0 F 97 18 150/108 100 - Laboratory Lab Statement: Any lab studies that have been ordered have been reviewed, and results considered in the medical decision making process. Re-Evaluation - Re-Evaluation First Eval Re-Evaluation Time: 21:14 Change: Improved Comment: Pt was able to ambulate at baseline. He was informed of discharge plan and is aggreable. Complex Multi-Symp Course/Dx Course Of Treatment: Mr. Mederos was discharged today from the hospital. It was noted that he had been slightly orthostatic but was ambulating fine in the hospital. He was on his way to [facility] when he slipped and fell. He sustained a few small abrasions and was found to be orthostatic on his arrival here. He was given IV fluids and improved. However at that point he refused to be discharged stating he didn't feel safe. I spoke with the hospitalist Dr. Benitez who will admit him. - Diagnoses Provider Diagnoses: Dehydration, Orthostatic hypotension - Physician Notifications Discussed Care Of Patient With: Fiona Hernandez - At 16:50, Dr. Fiona Hernandez recommends the patient be given IV fluids. Time Discussed With Above Provider: 16:50 Discharge ED - Sign-Out/Discharge Documenting (check all that apply): Patient Departure - discharge - Discharge Plan Condition: Stable Disposition: HOME Patient Education Materials: Dehydration (ED), Hypotension (ED) Referrals: Jon Mena MD [Primary Care Provider] - 2 Days Additional Instructions: PLEAE FOLLOW UP WITH YOUR PRIMARY CARE PHYSICIAN IN 1-3 DAYS AND RETURN TO THE EMERGENCY DEPARTMENT FOR ANY NEW OR WORSENING SYMPTOMS. - Billing Disposition and Condition Condition: STABLE Disposition: Home - Attestation Statements Document Initiated by Esdrasibe: Yes Documenting Scribe: Jack Samuels Provider For Whom Tobi is Documenting (Include Credential): Jonathan Cardenas MD Scribe Attestation: Edilma Wilhelm Marco DiSanto, scribed for Jonathan Cardenas MD on 08/27/19 at 2126. Scribe Documentation Reviewed: Yes Provider Attestation: The documentation as recorded by the Edilma otto Marco DiSanto accurately reflects the service I personally performed and the decisions made by Jonathan barriga MD Status of Scribe Document: Viewed
[2019-08-27] MEDS ORDERED: NS 0.9% 1000 ML** 1,000 ML IV ONE (18:25)
[2019-08-27] MEDS ORDERED: Acetaminophen TAB* 325 MG PO ONE (18:47)
[2019-08-27 21:54] LABS: ABS Lymphocytes 1.3 10^3/ul (1.0-4.8); ABS Monocytes 0.7 10^3/ul (0-0.8); ABS Neutrophils 4.3 10^3/ul (1.5-7.7); Eosinophil % 0.8 %; Hematocrit 34 % (42-52); Hemoglobin 11.4 g/dL (14.0-18.0); Lymphocyte % 20.1 %; Mean Corpuscular HGB Conc 34 g/dL (31-36); Mean Corpuscular Hemoglobin 35 pg (27-31); Mean Corpuscular Volume 103 fL (80-94); Nucleated Red Blood Cells % 0.1; Platelet Count 332 10^3/uL (150-450); Red Blood Count 3.28 10^6 /uL (4.18-5.48); Red Cell Distribution Width 16 % (10-15); White Blood Count 6.3 10^3/uL (3.5-10.8)
[2019-08-27 22:11] LABS: ALT 78 U/L (7-52); AST 59 U/L (13-39); Albumin/Globulin Ratio 1.3 (1-3); Alcohol < 10 mg/dL (<10); Alkaline Phosphatase 62 U/L (34-104); Anion Gap 8 mmol/L (2-11); BUN/Creatinine Ratio 17.2 (8-20); Blood Urea Nitrogen 28 mg/dL (6-24); CO2 Carbon Dioxide 21 mmol/L (22-32); Calcium 9.6 mg/dL (8.6-10.3); Chloride 108 mmol/L (101-111); EGFR African American 52.7 (>60); EGFR Non-African American 43.5 (>60); Globulin 3.2 g/dL (2-4); Glucose 85 mg/dL (70-100); Sodium 137 mmol/L (135-145); Total Protein 7.2 g/dL (6.4-8.9)
[2019-08-27] MEDS ORDERED: Docusate CAP* 100 MG PO PRN (23:01)
--- NOTE | 2019-08-28 02:24 | HP ---
CC: Dr. Jon Mena * ADMISSION HISTORY AND PHYSICAL: DATE OF ADMISSION: 08/27/19 PRIMARY CARE PROVIDER: Dr. Mena. CHIEF COMPLAINT: Dizziness and unsteady gait. HISTORY OF PRESENT ILLNESS: This is a 59-year-old male with past medical history for type 2 diabetes, hypertension, dyslipidemia, mitral valve regurg, previous tobacco use, history of alcohol abuse, history of prior CVAs, who was recently admitted with the diagnosis of chest pain and was subsequently discharged this morning at around 11 p.m. and was requested to follow up with [facility]. However, the patient stated that he felt he was not ready for discharge and wanted to stay some more as he felt unsteady with his gait. He did have physical therapy evaluation, who noted that he was having some unsteadiness but was able to correct himself without any assistive device, so the patient was thought to be stable for discharge and he stated that he has appealed his discharge and wants to stay in the hospital and does not feel safe at home. After he was discharged, he drove himself to the [facility] and he had a fall episode at that point. The patient stated that he never last consciousness, but he felt unsteady and his foot got caught in the snow and that is how he fell. Again, he denied any loss of consciousness but still feels dizzy. Upon ER evaluation, the patient was noted to have orthostatic hypotension, was given some IV fluids, which resolved his hypotension, but the patient still stated that he does not feel steady and wants to be admitted and he has already disputed his case and was told that he could stay here until the dispute with Medicare is resolved. The patient was notified that his hospital coverage may not be covered as there are no acute changes for admission. He refused to sign any retirement care paperwork stating that he already has paperwork for his refusal of discharge. The patient otherwise denies any chest pain at this point. Denies any breathing difficulty. He did state that he has some lower extremity edema especially around the ankles. He also stated that he has not had any meals after getting discharge at 11 a.m. No other nausea, vomiting, or diarrhea. The patient has some mild abrasions on the right hand from the fall, which is in a dressing. PAST MEDICAL HISTORY: Type 2 diabetes, hypertension, dyslipidemia, migraines, mitral regurgitation, history of alcohol abuse with recent admission for alcohol withdrawal, ketoacidosis secondary to starvation ketosis, chronic kidney disease, history of CVA, gastroesophageal reflux disease. PAST SURGICAL HISTORY: Gastric sleeve in May 2016, right knee surgery x3, Achilles tendon repair. HOME MEDICATIONS: Include: 1. Calcium citrate with vitamin D 1 tablet oral daily. 2. Multivitamins 1 tablet oral daily. 3. Thiamine 100 mg oral daily. 4. Protonix 40 mg oral daily. 5. Carafate 1 g p.o. a.c. 6. Folic acid 1 mg oral daily. 7. Colace 100 mg p.o. b.i.d. p.r.n. 8. Tylenol 650 mg q.4 hours p.r.n. 9. Metformin 500 mg oral daily. 10. Glyburide 2.5 mg oral daily. 11. Lipitor 40 mg oral daily. 12. Aspirin 81 mg p.o. daily. ALLERGIES: No known drug allergies. FAMILY HISTORY: Father is living at age 82, has history of prostate cancer. Mother had in her 70s. She had a history of coronary disease and diabetes. 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 He is unmarried, has no children. He lives alone. He quit smoking 20 days ago. Prior to that was smoking approximately 25 years at 1 pack per day. He also used to drink 1.5 L of vodka per day, quit since last admission on 08/16/19. REVIEW OF SYSTEMS: A 14-point review of systems did not reveal any new information other than what is mentioned in the HPI. PHYSICAL EXAMINATION GENERAL: The patient is awake, alert, oriented x3, did not appear to be in any acute respiratory distress. VITAL SIGNS: BP was noted to be 125/84, temperature 98.7, heart rate 85, respiration rate 18, saturating 100% on room air. HEAD AND NECK: Atraumatic, normocephalic. Bilateral pupils reactive. Oral mucosa was moist. Neck: Supple. No jugular venous distention. LUNGS: Clear to auscultation bilaterally. No wheezing, rhonchi, or rales. HEART: S1, S2. Regular rate and rhythm. ABDOMEN: Obese, soft, nontender, nondistended. EXTREMITIES: No cyanosis, clubbing, but there was some ankle edema noted and the patient had severe onychomycosis of toenails on both feet. DIAGNOSTIC STUDIES/LAB DATA: CBC shows normal white count of 6.3, hemoglobin 11.4, hematocrit 34, platelet count was 333. Comprehensive metabolic panel shows elevated BUN at 28, creatinine elevated at 1.63. AST elevated at 59 and ALT at 78. Serum alcohol less than 10. IMPRESSION: This is a 59-year-old male with past medical history of diabetes, alcohol abuse, hypertension, hyperlipidemia, history of stroke, here due to unsteady gait, feeling he is not stable for discharge home and states that he was told that he could and wants to appeal his discharge from this morning. ASSESSMENT AND PLAN: 1. Unsteady gait. I suspect that this is due to his history of alcohol abuse and neuropathy. We will get Physical Therapy evaluation and consider a neurology consult in the morning. In the meantime, we will observe the patient on medical floor and obtain orthostatic vital signs every shift. 2. History of diabetes. We will hold metformin in light of elevated creatinine and continue glyburide and also add fingerstick sliding scale before meals and at bedtime. 3. History of hypertension with currently normotensive and with also having some orthostatic hypotension. We will hold blood pressure medications and monitor the patient. 4. History of dyslipidemia. Continue statin. 5. History of stroke. Continue aspirin and statin. 6. History of alcohol abuse, has finished his course of withdrawal. No need for any WA protocol. 7. Acute on chronic kidney disease. Creatinine will be minimally elevated as the patient has not taken anything p.o. ever since discharge, however, repeat labs in the morning as the patient already received IV fluids. 8. Onychomycosis of the toes. Can consider Podiatry evaluation either inpatient or outpatient for toenail clipping. 9. DVT prophylaxis with subcu heparin. 10. Code status: Full code. [id number]/[facility] #: [id number] MTDD
[2019-08-28] MEDS: Heparin VIAL(*) 5000 UNITS/ML VIAL (FIVE THOUSAND) SUBCUT SCH ×3 (05:52→20:52)
[2019-08-28 06:30] LABS: ABS Eosinophils 0.1 10^3/ul (0-0.6); ABS Lymphocytes 0.8 10^3/ul (1.0-4.8); ABS Monocytes 0.5 10^3/ul (0-0.8); ABS Neutrophils 3.5 10^3/ul (1.5-7.7); Hematocrit 30 % (42-52); Hemoglobin 10.3 g/dL (14.0-18.0); Lymphocyte % 16.3 %; Mean Corpuscular HGB Conc 34 g/dL (31-36); Mean Corpuscular Hemoglobin 35 pg (27-31); Mean Corpuscular Volume 102 fL (80-94); Mean Platelet Volume 7.3 fL (7.4-10.4); Nucleated Red Blood Cells % 0.1; Platelet Count 281 10^3/uL (150-450); Red Blood Count 2.97 10^6 /uL (4.18-5.48); Red Cell Distribution Width 16 % (10-15); White Blood Count 4.8 10^3/uL (3.5-10.8)
[2019-08-28 06:43] LABS: Anion Gap 6 mmol/L (2-11); CO2 Carbon Dioxide 21 mmol/L (22-32); Calcium 9.2 mg/dL (8.6-10.3); Chloride 111 mmol/L (101-111); Potassium 3.8 mmol/L (3.5-5.0); Sodium 138 mmol/L (135-145)
[2019-08-28 06:49] LABS: BUN/Creatinine Ratio 16.7 (8-20); Blood Urea Nitrogen 27 mg/dL (6-24); EGFR Non-African American 43.8 (>60); Glucose 137 mg/dL (70-100)
[2019-08-28] MEDS ORDERED: glyBURIDE TAB* 2.5 MG PO SCH (09:00)
[2019-08-28] MEDS: Aspirin 81 mg CHEW TAB* 81 MG TAB.CHEW PO SCH (09:02)
[2019-08-28] MEDS: Atorvastatin* 40 MG TAB PO SCH (09:02)
[2019-08-28] MEDS: Pantoprazole TAB * 40 MG TAB PO SCH (09:02)
[2019-08-28] MEDS: Thiamine TAB* 100 MG TAB PO SCH (09:02)
[2019-08-28] MEDS: Sucralfate TAB* 1 GM PO SCH ×3 (09:03→16:17)
[2019-08-28] MEDS: Calcium/Vitamin D TAB 250/125* TAB PO SCH (09:03)
[2019-08-28] MEDS: Folic Acid TAB* 1 MG PO SCH (09:03)
[2019-08-28] MEDS: Acetaminophen TAB* 325 MG PO PRN ×2 (09:12→20:48)
[2019-08-28 13:00] LABS: % Iron Saturation 25 % (15-55); Iron 66 ug/dL (50-212); Total Iron Binding Capacity 263 mcg/dL (250-450); Transferrin 188 mg/dL (203-362)
[2019-08-28 13:18] LABS: Ferritin 942.5 ng/mL (24-336)
[2019-08-28] MEDS ORDERED: Dextrose 50% Syringe 50 ML* 25 GM/50 ML SYRINGE IV PUSH PRN (16:51)
--- NOTE | 2019-08-28 17:06 | PN ---
Subjective Date of Service: 08/28/19 Interval History: Patient sitting on edge of bed on assessment. Reports he is "frustrated" due to recent hospital discharge and discussion of residential admission in ED last evening. Patient talked at length about these frustrations. When discussing events leading up to most recent admission he reports he fell on a snow bank outside of [facility]. Reports his gate is unsteady and would like [facility] and then inpatient etoh rehab. He reports upper back and neck pain which is chronic for him. He denies cp, sob, nausea, vomiting, fever, chills. Objective Active Medications: Acetaminophen (Tylenol Tab*) 650 mg PO Q4H PRN PRN Reason: PAIN Last Admin: 08/28/19 09:12 Dose: 650 mg Aspirin (Aspirin 81 Mg Chew Tab*) 81 mg PO DAILY [facility] Last Admin: 08/28/19 09:02 Dose: 81 mg Atorvastatin Calcium (Lipitor*) 40 mg PO DAILY [facility] Last Admin: 08/28/19 09:02 Dose: 40 mg Calcium/Vitamin D (Oscal D Tab 250/125*) 1 tab PO DAILY [facility] Last Admin: 08/28/19 09:03 Dose: 1 tab Dextrose (D50w Syringe 50 Ml*) 12.5 gm IV PUSH .FOR FS < 60 - SS PRN PRN Reason: FS < 60 Docusate Sodium (Colace Cap*) 100 mg PO BID PRN PRN Reason: CONSTIPATION Folic Acid (Folvite Tab*) 1 mg PO DAILY [facility] Last Admin: 08/28/19 09:03 Dose: 1 mg Heparin Sodium (Porcine) (Heparin Vial(*)) 5,000 units SUBCUT Q8HR [facility] Last Admin: 08/28/19 13:58 Dose: 5,000 units Insulin Human Lispro (Humalog*) 0 units SUBCUT AC [facility]; Protocol Naltrexone HCl (Naltrexone Tab*) 50 mg PO BEDTIME [facility]; Protocol Pantoprazole Sodium (Protonix Tab*) 40 mg PO DAILY [facility] Last Admin: 08/28/19 09:02 Dose: 40 mg Sucralfate (Carafate*) 1 gm PO AC [facility] Last Admin: 08/28/19 16:17 Dose: 1 gm Thiamine HCl (Vitamin B-1 Tab*) 100 mg PO DAILY [facility] Last Admin: 08/28/19 09:02 Dose: 100 mg Vital Signs - 8 hr 08/28/19 08/28/19 10:49 15:36 Temperature 98.5 F 98.2 F Pulse Rate 61 82 Respiratory 16 18 Rate Blood Pressure 139/83 165/88 (mmHg) O2 Sat by Pulse 95 100 Oximetry Oxygen Devices in Use Now: None Appearance: Comfortable, NAD Eyes: No Scleral Icterus Ears/Nose/Mouth/Throat: Clear Oropharnyx, Mucous Membranes Moist Neck: NL Appearance and Movements; NL JVP Respiratory: Symmetrical Chest Expansion and Respiratory Effort, Clear to Auscultation Cardiovascular: NL Sounds; No Murmurs; No JVD, RRR, - - Trace to mild bilateral LE edema Abdominal: NL Sounds; No Tenderness; No Distention Lymphatic: No Cervical Adenopathy Skin: No Rash or Ulcers Neurological: Alert and Oriented x 3 Nutrition: Taking PO's Result Diagrams: 08/28/19 06:10 08/28/19 06:10 Additional Lab and Data: Laboratory Results - last 24 hr 08/27/19 08/27/19 08/28/19 21:45 21:45 06:10 WBC 6.3 4.8 RBC 3.28 L 2.97 L Hgb 11.4 L 10.3 L Hct 34 L 30 L MCV 103 H 102 H MCH 35 H 35 H MCHC 34 34 RDW 16 H 16 H Plt Count 332 281 MPV 7.0 L 7.3 L Neut % (Auto) 67.7 71.9 Lymph % (Auto) 20.1 16.3 Angelina % (Auto) 10.9 10.5 Eos % (Auto) 0.8 1.0 Baso % (Auto) 0.5 0.3 Absolute Neuts (auto) 4.3 3.5 Absolute Lymphs (auto) 1.3 0.8 L Absolute Monos (auto) 0.7 0.5 Absolute Eos (auto) 0.0 0.1 Absolute Basos (auto) 0.0 0.0 Absolute Nucleated RBC 0.0 0.0 Nucleated RBC % 0.1 0.1 Sodium 137 Potassium 4.0 Chloride 108 Carbon Dioxide 21 L Anion Gap 8 BUN 28 H Creatinine 1.63 H Est GFR ( Amer) 52.7 Est GFR (Non-Af Amer) 43.5 BUN/Creatinine Ratio 17.2 Glucose 85 POC Glucose (mg/dL) Calcium 9.6 Iron TIBC % Saturation Unsat Iron Binding Transferrin Ferritin Total Bilirubin 0.40 AST 59 H ALT 78 H Alkaline Phosphatase 62 Total Protein 7.2 Albumin 4.0 Globulin 3.2 Albumin/Globulin Ratio 1.3 Serum Alcohol < 10 08/28/19 08/28/19 06:10 16:19 WBC RBC Hgb Hct MCV MCH MCHC RDW Plt Count MPV Neut % (Auto) Lymph % (Auto) Angelina % (Auto) Eos % (Auto) Baso % (Auto) Absolute Neuts (auto) Absolute Lymphs (auto) Absolute Monos (auto) Absolute Eos (auto) Absolute Basos (auto) Absolute Nucleated RBC Nucleated RBC % Sodium 138 Potassium 3.8 Chloride 111 Carbon Dioxide 21 L Anion Gap 6 BUN 27 H Creatinine 1.62 H Est GFR ( Amer) 53.0 Est GFR (Non-Af Amer) 43.8 BUN/Creatinine Ratio 16.7 Glucose 137 H POC Glucose (mg/dL) 132 H Calcium 9.2 Iron 66 TIBC 263 % Saturation 25 Unsat Iron Binding < 248 Transferrin 188 L Ferritin 942.5 H Total Bilirubin AST ALT Alkaline Phosphatase Total Protein Albumin Globulin Albumin/Globulin Ratio Serum Alcohol Microbiology and Other Data: . Assess/Plan/Problems-Billing Assessment: 59 yr of male pmh of dm, htn, hld, migraines, mitral regurg, etoh abuse, ketoacidosis, ckd, cva, gerd; who presneted to the ED after a fall and wanting to appeal discharge from the morning - Patient Problems (1) Fall Comment: - Reports mechanical fall prior to admission as patient tripped on snow bank - Denies injury or pain from fall - PT/OT ordered (2) Alcohol abuse Comment: - Requested Naltrexone as he was on it on last admission - No s/s of withdrawal - Last drink prior to last admission (3) CKD (chronic kidney disease) stage 3, GFR 30-59 ml/min Comment: - Creatinine at baseline (4) Diabetes Comment: - C/O GI symptoms with Metforim, therefore, held. - Given hospital admission will hold oral agents - ACHS and SS (5) HTN (hypertension) Comment: - Noted to be hypertensive. - Requesting to be restarted on Lisinopril and Lasix as he tolerated those medications well. - Does not want to be on Norvasc as he had edema. (6) DVT prophylaxis Comment: - SQ Heparin (7) Full code status Code(s): Z78.9 - OTHER SPECIFIED HEALTH STATUS
[2019-08-28] MEDS: Naltrexone TAB* 50 MG TAB PO SCH (20:49)
[2019-08-29] MEDS: Melatonin 3 MG TAB PO SCH ×2 (01:23→21:17)
[2019-08-29] MEDS: Heparin VIAL(*) 5000 UNITS/ML VIAL (FIVE THOUSAND) SUBCUT SCH ×3 (05:50→21:18)
[2019-08-29] MEDS: Pantoprazole TAB * 40 MG TAB PO SCH (08:16)
[2019-08-29] MEDS: Aspirin 81 mg CHEW TAB* 81 MG TAB.CHEW PO SCH (08:16)
[2019-08-29] MEDS: Acetaminophen TAB* 325 MG PO PRN ×2 (08:16→21:17)
[2019-08-29] MEDS: Folic Acid TAB* 1 MG PO SCH (08:16)
[2019-08-29] MEDS: Thiamine TAB* 100 MG TAB PO SCH (08:16)
[2019-08-29] MEDS: Hydrochlorothiazide TAB* 25 MG PO SCH (08:17)
[2019-08-29] MEDS: Sucralfate TAB* 1 GM PO SCH ×3 (08:17→16:27)
[2019-08-29] MEDS: Lisinopril TAB* 10 MG PO SCH (08:17)
[2019-08-29] MEDS: Atorvastatin* 40 MG TAB PO SCH (08:17)
[2019-08-29] MEDS: Calcium/Vitamin D TAB 250/125* TAB PO SCH (08:17)
[2019-08-29] MEDS: Insulin LISPRO* 1 UNITS UNIT SUBCUT SCH ×3 (08:26→17:00)
[2019-08-29 13:01] LABS: ABS Eosinophils 0.1 10^3/ul (0-0.6); ABS Lymphocytes 0.9 10^3/ul (1.0-4.8); ABS Monocytes 0.4 10^3/ul (0-0.8); ABS Neutrophils 3.8 10^3/ul (1.5-7.7); Eosinophil % 1.1 %; Hematocrit 33 % (42-52); Hemoglobin 11.1 g/dL (14.0-18.0); Lymphocyte % 16.9 %; Mean Corpuscular HGB Conc 33 g/dL (31-36); Mean Corpuscular Hemoglobin 34 pg (27-31); Mean Corpuscular Volume 102 fL (80-94); Mean Platelet Volume 7.5 fL (7.4-10.4); Nucleated Red Blood Cells % 0.1; Platelet Count 315 10^3/uL (150-450); Red Blood Count 3.27 10^6 /uL (4.18-5.48); Red Cell Distribution Width 15 % (10-15); White Blood Count 5.2 10^3/uL (3.5-10.8)
[2019-08-29 13:13] LABS: Calcium 9.3 mg/dL (8.6-10.3); Potassium 4.2 mmol/L (3.5-5.0)
[2019-08-29 13:19] LABS: EGFR African American 56.7 (>60); EGFR Non-African American 46.8 (>60)
--- NOTE | 2019-08-29 17:01 | PN ---
Subjective Date of Service: 08/29/19 Interval History: Patient has no acute complaints. Stated that ambulated 5 times around the unit today using an assistive device without any difficulty. Still feels slightly unsteady on his feet but feels that he has greatly improved over the past few days. When asked if he felt he could get to his bathroom and kitchen to get food , he said yes. Denies dizziness, lightheaded, headache, chest pain, palpitations , abdominal pain, nausea, vomiting, issues moving his bowel or bladder. Is refusing discharge at this time because he does not feel his strength to be back to 100%, which I reinforced is not a reasonable goal for a few days time. But he agreed that he could safely maneuver at home. Family History: Unchanged from Admission Social History: Unchanged from Admission Past Medical History: Unchanged from Admission Objective Active Medications: Acetaminophen (Tylenol Tab*) 650 mg PO Q4H PRN PRN Reason: PAIN Last Admin: 08/29/19 08:16 Dose: 650 mg Aspirin (Aspirin 81 Mg Chew Tab*) 81 mg PO DAILY COUNT INCLUDES THE [facility] Last Admin: 08/29/19 08:16 Dose: 81 mg Atorvastatin Calcium (Lipitor*) 40 mg PO DAILY COUNT INCLUDES THE [facility] Last Admin: 08/29/19 08:17 Dose: 40 mg Calcium/Vitamin D (Oscal D Tab 250/125*) 1 tab PO DAILY COUNT INCLUDES THE [facility] Last Admin: 08/29/19 08:17 Dose: 1 tab Dextrose (D50w Syringe 50 Ml*) 12.5 gm IV PUSH .FOR FS < 60 - SS PRN PRN Reason: FS < 60 Docusate Sodium (Colace Cap*) 100 mg PO BID PRN PRN Reason: CONSTIPATION Folic Acid (Folvite Tab*) 1 mg PO DAILY COUNT INCLUDES THE [facility] Last Admin: 08/29/19 08:16 Dose: 1 mg Heparin Sodium (Porcine) (Heparin Vial(*)) 5,000 units SUBCUT Q8HR COUNT INCLUDES THE [facility] Last Admin: 08/29/19 13:39 Dose: 5,000 units Hydrochlorothiazide (Hydrodiuril Tab*) 12.5 mg PO DAILY COUNT INCLUDES THE [facility] Last Admin: 08/29/19 08:17 Dose: 12.5 mg Insulin Human Lispro (Humalog*) 0 units SUBCUT AC COUNT INCLUDES THE [facility]; Protocol Last Admin: 08/29/19 12:31 Dose: 3 unit Lisinopril (Prinivil Tab*) 10 mg PO DAILY COUNT INCLUDES THE [facility] Last Admin: 08/29/19 08:17 Dose: 10 mg Melatonin (Melatonin) 3 mg PO BEDTIME COUNT INCLUDES THE [facility] Last Admin: 08/29/19 01:23 Dose: Not Given Naltrexone HCl (Naltrexone Tab*) 50 mg PO BEDTIME COUNT INCLUDES THE [facility]; Protocol Last Admin: 08/28/19 20:49 Dose: 50 mg Pantoprazole Sodium (Protonix Tab*) 40 mg PO DAILY COUNT INCLUDES THE [facility] Last Admin: 08/29/19 08:16 Dose: 40 mg Sucralfate (Carafate*) 1 gm PO AC COUNT INCLUDES THE [facility] Last Admin: 08/29/19 16:27 Dose: 1 gm Thiamine HCl (Vitamin B-1 Tab*) 100 mg PO DAILY COUNT INCLUDES THE [facility] Last Admin: 08/29/19 08:16 Dose: 100 mg Vital Signs - 8 hr 08/29/19 08/29/19 08/29/19 11:07 11:54 11:55 Temperature 97.2 F Pulse Rate 81 84 117 Respiratory 18 Rate Blood Pressure 144/76 148/77 143/71 (mmHg) O2 Sat by Pulse 100 Oximetry 08/29/19 14:30 Temperature 97.7 F Pulse Rate 91 Respiratory 17 Rate Blood Pressure 134/73 (mmHg) O2 Sat by Pulse 100 Oximetry Oxygen Devices in Use Now: None Appearance: This is a well developed gentleman sitting up at the edge of the bed , no acute distress. Eyes: No Scleral Icterus, PERRLA Ears/Nose/Mouth/Throat: NL Teeth, Lips, Gums, Clear Oropharnyx, Mucous Membranes Moist Neck: NL Appearance and Movements; NL JVP, Trachea Midline Respiratory: Symmetrical Chest Expansion and Respiratory Effort, Clear to Auscultation Cardiovascular: NL Sounds; No Murmurs; No JVD, RRR, No Edema Abdominal: NL Sounds; No Tenderness; No Distention Lymphatic: No Cervical Adenopathy Extremities: No Edema, No Clubbing, Cyanosis Skin: No Rash or Ulcers, No Nodules or Sclerosis Neurological: Alert and Oriented x 3 Lines/Tubes/Other Access: Clean, Dry and Intact Peripheral IV Result Diagrams: 08/29/19 12:46 08/29/19 12:46 Additional Lab and Data: Laboratory Results - last 24 hr 08/27/19 08/27/19 08/28/19 21:45 21:45 06:10 WBC 6.3 4.8 RBC 3.28 L 2.97 L Hgb 11.4 L 10.3 L Hct 34 L 30 L MCV 103 H 102 H MCH 35 H 35 H MCHC 34 34 RDW 16 H 16 H Plt Count 332 281 MPV 7.0 L 7.3 L Neut % (Auto) 67.7 71.9 Lymph % (Auto) 20.1 16.3 [place] % (Auto) 10.9 10.5 Eos % (Auto) 0.8 1.0 Baso % (Auto) 0.5 0.3 Absolute Neuts (auto) 4.3 3.5 Absolute Lymphs (auto) 1.3 0.8 L Absolute Monos (auto) 0.7 0.5 Absolute Eos (auto) 0.0 0.1 Absolute Basos (auto) 0.0 0.0 Absolute Nucleated RBC 0.0 0.0 Nucleated RBC % 0.1 0.1 Sodium 137 Potassium 4.0 Chloride 108 Carbon Dioxide 21 L Anion Gap 8 BUN 28 H Creatinine 1.63 H Est GFR ( Amer) 52.7 Est GFR (Non-Af Amer) 43.5 BUN/Creatinine Ratio 17.2 Glucose 85 POC Glucose (mg/dL) Calcium 9.6 Iron TIBC % Saturation Unsat Iron Binding Transferrin Ferritin Total Bilirubin 0.40 AST 59 H ALT 78 H Alkaline Phosphatase 62 Total Protein 7.2 Albumin 4.0 Globulin 3.2 Albumin/Globulin Ratio 1.3 Serum Alcohol < 10 08/28/19 08/28/19 06:10 16:19 WBC RBC Hgb Hct MCV MCH MCHC RDW Plt Count MPV Neut % (Auto) Lymph % (Auto) [place] % (Auto) Eos % (Auto) Baso % (Auto) Absolute Neuts (auto) Absolute Lymphs (auto) Absolute Monos (auto) Absolute Eos (auto) Absolute Basos (auto) Absolute Nucleated RBC Nucleated RBC % Sodium 138 Potassium 3.8 Chloride 111 Carbon Dioxide 21 L Anion Gap 6 BUN 27 H Creatinine 1.62 H Est GFR ( Amer) 53.0 Est GFR (Non-Af Amer) 43.8 BUN/Creatinine Ratio 16.7 Glucose 137 H POC Glucose (mg/dL) 132 H Calcium 9.2 Iron 66 TIBC 263 % Saturation 25 Unsat Iron Binding < 248 Transferrin 188 L Ferritin 942.5 H Total Bilirubin AST ALT Alkaline Phosphatase Total Protein Albumin Globulin Albumin/Globulin Ratio Serum Alcohol Microbiology and Other Data: . Assess/Plan/Problems-Billing Assessment: 59 yr of male pmh of dm, htn, hld, migraines, mitral regurg, etoh abuse, ketoacidosis, ckd, cva, gerd; who presneted to the ED after a fall and wanting to appeal discharge from the morning - Patient Problems (1) Fall Current Visit: Yes Status: Acute Comment: - Reports mechanical fall prior to admission as patient tripped on snow bank. likely secondary to orthostatic hypotension which has since resolved. - Denies injury or pain from fall - PT/OT ordered, requires assistive device for safe ambulation. Does not require JAY. (2) Diabetes type 2, controlled Current Visit: Yes Status: Acute Code(s): E11.9 - TYPE 2 DIABETES MELLITUS WITHOUT COMPLICATIONS SNOMED Code(s): 74584330 Comment: -Fingersticks ACHS with sliding scale lispro. Glyburide and metformin held for now. (3) Acute kidney injury superimposed on chronic kidney disease Current Visit: Yes Status: Acute Code(s): N17.9 - ACUTE KIDNEY FAILURE, UNSPECIFIED; N18.9 - CHRONIC KIDNEY DISEASE, UNSPECIFIED SNOMED Code(s): 99280301 Comment: -Arrived to ED with elevated creatinine above baseline, likely secondary to dehydration. Is currently trending down. (4) Alcohol abuse Current Visit: No Status: Acute Code(s): F10.10 - ALCOHOL ABUSE, UNCOMPLICATED SNOMED Code(s): 22990915 Comment: - Continue Naltrexone, folic acid and thiamine - No s/s of withdrawal - Last drink prior to last admission -Does not require WAM (5) GERD (gastroesophageal reflux disease) Current Visit: No Status: Acute Code(s): K21.9 - GASTRO-ESOPHAGEAL REFLUX DISEASE WITHOUT ESOPHAGITIS SNOMED Code(s): 866313631 Comment: - Continue sucralfate. No signs or symptoms of indigestion. (6) HTN (hypertension) Current Visit: No Status: Chronic Code(s): I10 - ESSENTIAL (PRIMARY) HYPERTENSION SNOMED Code(s): 21449768 Comment: - SBP 130's to 140's. - Continue lisinopril and hydrochlorothiazide. - Does not want to be on Norvasc as he had edema. (7) History of CVA (cerebrovascular accident) Current Visit: No Status: Chronic Code(s): Z86.73 - PRSNL HX OF TIA (TIA), AND CEREB INFRC W/O RESID DEFICITS SNOMED Code(s): 544963946 Comment: - Continue ASA and atorvastatin. (8) DVT prophylaxis Current Visit: No Status: Acute Code(s): OMC1279 - SNOMED Code(s): 025624316 Comment: - SQ Heparin (9) Full code status Current Visit: No Status: Acute Code(s): Z78.9 - OTHER SPECIFIED HEALTH STATUS SNOMED Code(s): 195383494 Status and Disposition: Condition: Stable Disposition: Is ready for discharge as all of his original complaints have resolved, he is refusing discharge. Attending: Sarah Figueroa
[2019-08-29] MEDS: Naltrexone TAB* 50 MG TAB PO SCH (21:17)
[2019-08-30] MEDS: Acetaminophen TAB* 325 MG PO PRN ×2 (06:11→12:07)
[2019-08-30] MEDS: Heparin VIAL(*) 5000 UNITS/ML VIAL (FIVE THOUSAND) SUBCUT SCH (06:12)
[2019-08-30] MEDS: Insulin LISPRO* 1 UNITS UNIT SUBCUT SCH ×2 (06:26→12:10)
[2019-08-30] MEDS: Sucralfate TAB* 1 GM PO SCH ×2 (07:53→11:21)
[2019-08-30] MEDS: Calcium/Vitamin D TAB 250/125* TAB PO SCH (08:08)
[2019-08-30] MEDS: Thiamine TAB* 100 MG TAB PO SCH (08:08)
[2019-08-30] MEDS: Hydrochlorothiazide TAB* 25 MG PO SCH (08:08)
[2019-08-30] MEDS: Aspirin 81 mg CHEW TAB* 81 MG TAB.CHEW PO SCH (08:09)
[2019-08-30] MEDS: Lisinopril TAB* 10 MG PO SCH (08:09)
[2019-08-30] MEDS: Pantoprazole TAB * 40 MG TAB PO SCH (08:09)
[2019-08-30] MEDS: Atorvastatin* 40 MG TAB PO SCH (08:09)
[2019-08-30] MEDS: Folic Acid TAB* 1 MG PO SCH (08:09)
[2019-08-30 12:18] VITALS: BP 110/79
--- NOTE | 2019-08-30 23:50 | DS ---
CC: Dr. Mena * DISCHARGE SUMMARY: DATE OF ADMISSION: 08/27/19 DATE OF DISCHARGE: 08/30/19 PROVIDER: Rajwinder Thomas NP. ATTENDING PHYSICIAN: Dr. Thomas.* (DICTATED BY RAJWINDER THOMAS NP) PRIMARY CARE PHYSICIAN: Dr. Mena. PRIMARY DIAGNOSIS: Weakness and mechanical fall. SECONDARY DIAGNOSES: 1. Alcohol abuse. 2. Chronic kidney disease, stage 3. 3. Diabetes type 2. 4. Hypertension. PROCEDURES: None. STUDIES: None. PERTINENT LABORATORY DATA: RBC 3.27, hemoglobin 11.1, hematocrit 33, MCV 102, MCH 34, carbon dioxide 19, BUN 26, creatinine 153. Iron 66, TIBC 263, percent saturation 25, unsaturated iron binding less than 248, transferrin 188, ferritin 942.5, AST 59, ALT 78. HISTORY OF PRESENT ILLNESS/HOSPITAL COURSE: This is a 59-year-old male with past medical history significant for type 2 diabetes, hypertension, dyslipidemia , who came to the emergency room on 08/27/19, status post a mechanical fall. Of note, the patient had recently been admitted from 08/16/19 through 08/27/19 for intermittent chest pain and dyspnea, EtOH abuse with withdrawal symptoms during the hospital stay. He had at that point contended discharge stating that he had felt unsteady and simply not ready to go home; however, Physical Therapy during that stay had evaluated him and noted that even though he was having some unsteadiness, he was able to correct himself without any assistive device, so therefore he was thought stable for discharge. After he was discharged, he had driven himself to [facility] with the intention to begin his self- enrolment process and fell outside into a snowbank after getting his foot caught in it, but he denied ever losing consciousness, though he did feel dizzy upon arrival to the ED and was noted to have some orthostatic hypotension and was given IV fluids which resolved the hypotension but he still did not feel ready to be discharged home and therefore was readmitted. He was made aware that his hospital stay may not be covered as there was no acute changes that necessitated an admission and he refused to sign any retirement care paperwork, though still refused discharge. The next day , PT was ordered again and evaluated the patient. They did note some unsteadiness. After being given an assistive device either using a walker or cane, he was noted to be able to walk without any difficulty, was not having any orthostatic vital changes. The next day, his morning orthostatic vitals revealed no significant changes in the blood pressure between positions. He stated that he was able to walk 5 times around the unit without any problem and was denying any dizziness or lightheadedness, at which point he was told that he was stable to go home. We discussed his concerns about his lack of strength. He did not feel that he was completely at his baseline strength. I informed him that it will take some time, that it was not a reasonable expectation to stay in the hospital until that occurred. He did agree that if he went home he would be able to get around to do the things that he needed to do, particularly in the house like the bathroom and be able to make himself his own meals and be able to get himself to appointments and yet he still refused discharge despite it being made clear that the reason for which he was originally admitted which was weakness and unsteady gait had resolved. So we kept him through the night which went by uneventfully. Today, he stated that he was feeling some degree of lightheadedness; however, he had ambulated around the floor multiple times. Vital Signs were stable. The patient was provided a walker and discharged to home with the instructions to follow up with primary care physician within the next few days as well as with encouragement to continue on with his plans of enrolling with [facility]. REVIEW OF SYSTEMS: A 12-point system review was performed which is positive for lightheadedness. He denied any fever, chills, dizziness, chest pain, palpitations, shortness of breath, abdominal pain, nausea, vomiting, or issues moving his bowel or bladder. PHYSICAL EXAMINATION: Vital Signs: 97.9 Fahrenheit, 108 pulse, 19 respirations , 100% oxygen on room air, 110/79 blood pressure. General: This is a well- developed gentleman seen sitting up at the edge of the bed, in no acute distress. HEENT: Conjunctivae pink and moist. PERRLA. EOMs intact. Oropharynx clear. Mucous membranes moist. Neck is supple. Cardiac: S1, S2 present. Heart rate regular. No murmurs, gallops, or rubs appreciated. Lung sounds clear throughout bilaterally on room air with no accessory muscle use noted. Abdomen: Soft, nontender, nondistended with positive bowel sounds x4. Musculoskeletal: No clubbing or cyanosis of the digits. Able to move all extremities. Neurological: No focal deficits appreciated. Sensation intact to light touch. Psych: He is alert and oriented x4 with thought content organized. DISCHARGE PLAN: He is to be discharged home on a consistent carb diet with no activity restrictions per se, but he was encouraged to use his walker at all times particularly when feeling unsteady and particularly when walking outside. He is to return to the emergency room should he develop sudden chest pain or shortness of breath; or should his symptoms worsen. PLAN FOR EACH CONDITION: 1. Weakness and unsteady gait. The patient was provided with a rolling walker to be able to assist with ambulation as Physical Therapy felt that this was a safe discharge plan. Should follow up with primary care physician within the week. 2. EtOH abuse. He had used naltrexone on his last admission and through this most recent admission. I prescribed it for him as an outpatient to bridge him between here and [facility] with the caution that he should not drink alcohol and take naltrexone at the same time and to follow up with primary care provider as he will need subsequent liver studies. He is to continue his thiamine and folate. 3. Chronic kidney disease stage 3. His creatinine is around baseline at this time. 4. Diabetes type 2. He is to continue his glyburide and metformin. 5. Gastroesophageal reflux disease. He is to continue his pantoprazole. He does not have any signs or symptoms of indigestion. He should also continue his sucralfate. 6. Hypertension. He should continue his lisinopril and hydrochlorothiazide. However, I would like his PCP to bear in mind that this may need to be scaled back if he is continuing to have reports of dizziness and lightheadedness. 7. Hyperlipidemia. Continue atorvastatin. MEDICATIONS: New Medications: 1. Naltrexone 50 mg p.o. at bedtime. Medications to continue upon discharge: 1. Acetaminophen 650 mg p.o. q.4 hours p.r.n. 2. Aspirin 81 mg p.o. daily. 3. Atorvastatin 40 mg p.o. daily. 4. Calcium citrate/vitamin D3 one tab p.o. daily. 5. Docusate 100 mg p.o. b.i.d. 6. Folic acid 1 mg p.o. daily. 7. Glyburide 2.5 mg p.o. daily. 8. Lisinopril/hydrochlorothiazide 20/12.5 p.o. daily. 9. Metformin 500 mg p.o. daily. 10. Pantoprazole 40 mg p.o. daily. 11. Pediatric multivitamin 1 tab p.o. daily. 12. Sucralfate 1 g p.o. a.c. 13. Thiamine 100 mg p.o. daily. CONDITION UPON DISCHARGE: Stable. DISPOSITION: Home. TIME SPENT: Time spent on the patient is about 60 minutes with 30 of that spent [id number]. RAJWINDER THOMAS, [employer] DEVELOPER [id number]/[facility] #: [id number] MTDD
== END 2019-08-30 13:10 | disposition home or self-care (01) ==
LOC: ED 13:53 → MED 22:40
PROVIDERS: ADMIT Internal Medicine; ATTEND Internal Medicine
DX: R53.1 Weakness (principal); Z91.81 History of falling; I12.9 Hypertensive chronic kidney disease with stage 1 through stage 4 chronic kidney disease, or unspecified chronic kidney disease; F10.10 Alcohol abuse, uncomplicated; E11.22 Type 2 diabetes mellitus with diabetic chronic kidney disease; N18.3 Chronic kidney disease, stage 3 (moderate); R42 Dizziness and giddiness; E78.5 Hyperlipidemia, unspecified; K21.9 Gastro-esophageal reflux disease without esophagitis; F41.9 Anxiety disorder, unspecified; F32.9 Major depressive disorder, single episode, unspecified; Z79.82 Long term (current) use of aspirin; Z79.899 Other long term (current) drug therapy; Z98.84 Bariatric surgery status; Z86.73 Personal history of transient ischemic attack (TIA), and cerebral infarction without residual deficits; Z87.891 Personal history of nicotine dependence
CPT/HCPCS: 36415; 80048; 80053; 80320; 82728; 83540; 83550; 85025; 96360; 96361; 96372; 99285; A9270-GY; G0378; G0480; J1644

== ENCOUNTER 2019-09-18 18:55 | Emergency (ER) | payer MEDICAID ==
[2019-09-18] MEDS ORDERED: Ketorolac INJ* 30 MG/ML 1 ML VIAL IV PUSH ONE (19:21)
[2019-09-18] MEDS ORDERED: NS 0.9% 1000 ML** 2,000 ML IV ONE (19:21)
[2019-09-18] MEDS ORDERED: PROCHLORPERAZINE INJ 5 MG/ML 2 ML VIAL IV ONE (19:21)
[2019-09-18] MEDS ORDERED: diPHENhydraMINE IV* 50 MG/ML 1 ml VIAL (BENADRYL) IV ONE (19:21)
--- NOTE | 2019-09-18 19:29 | ED ---
Headache - HPI Summary HPI Summary: 59 year old male present to the ED by EMS with a chief complaint of headache starting today at 1300. Patient reports that this headache is severe, much worse than his chronic migraines that he has had for 6 years. He also reports chest pain, chills, photophobia, numbness in his 3rd through 5th fingers in his left hand, and one episode of vomiting while in the ambulance. Patient woke up this morning feeling normal, and the pain began when he was at rest. He has a history of alcohol abuse, but denies drinking in the last 2 weeks. PMHx of DM. - History Of Current Complaint Chief Complaint: EDHeadache Stated Complaint: HEADAHCE,NASEA AND VOMITING Time Seen by Provider: 09/18/19 19:12 Hx Obtained From: Patient Onset/Duration: Sudden Onset, Started hours ago, Still Present Initially Headache Was: Severe Currently Pain Is: Severe Timing: Constant, Hours Character: Migraine Aggravating Factor: Bright Lights Associated Signs And Symptoms: Vomiting - Allergies/Home Medications Allergies/Adverse Reactions: Allergies Allergy/AdvReac Type Severity Reaction Status Date / Time No Known Allergies Allergy Verified 08/27/19 14:02 Home Medications: Home Medications Acetaminophen TAB* [Tylenol TAB*] 650 mg PO Q4H PRN 08/29/16 [History Confirmed 09/18/19] Docusate CAP* [Colace Cap*] 100 mg PO BID PRN 08/16/19 [History Confirmed ] Folic Acid TAB* [Folvite TAB*] 1 mg PO DAILY 08/16/19 [History Confirmed ] Pantoprazole TAB * [Protonix TAB*] 40 mg PO DAILY 08/16/19 [History Confirmed ] Sucralfate TAB* [Carafate*] 1 gm PO AC 08/16/19 [History Confirmed 09/18/19] Thiamine TAB* [Vitamin B-1 TAB 100 MG*] 100 mg PO DAILY 08/16/19 [History Confirmed 09/18/19] Aspirin 81 mg CHEW TAB* 81 mg PO DAILY #30 tab.chew 08/27/19 [Rx Confirmed 09/17] Lisinopril/Hydrochlorothiazide [Lisinopril-Hctz 20-12.5 mg Tab] 1 tab PO DAILY 08/28/19 [History Confirmed 09/18/19] Naltrexone TAB* 50 mg PO BEDTIME #30 tab 08/30/19 [Rx Confirmed 09/18/19] Prochlorperazine 10 mg TAB [Compazine 10 mg TAB] 10 mg PO Q6H PRN #10 tab [Rx] PMH/Surg Hx/FS Hx/Imm Hx Endocrine/Hematology History: Reports: Hx Diabetes Denies: Hx Thyroid Disease Cardiovascular History: Reports: Hx Valvular Heart Disease, Other Cardiovascular Problems/Disorders - mitral valve regurgitation Denies: Hx Congestive Heart Failure, Hx Deep Vein Thrombosis, Hx Hypertension , Hx Myocardial Infarction, Hx Pacemaker/ICD Respiratory History: Reports: Hx Sleep Apnea - uses CPAP at night Denies: Hx Asthma, Hx Chronic Obstructive Pulmonary Disease (COPD), Hx Lung Cancer, Hx Pneumonia, Hx Pulmonary Embolism GI History: Reports: Hx Gastroesophageal Reflux Disease Denies: Hx Gall Bladder Disease, Hx Gastrointestinal Bleed, Hx Ulcer, Hx Urosepsis History: Denies: Hx Kidney Stones, Hx Renal Disease Musculoskeletal History: Reports: Hx Orthopedic Injury - right knee Sensory History: Reports: Hx Contacts or Glasses Denies: Hx Legally Blind, Hx Deafness, Hx Hearing Aid Opthamlomology History: Reports: Hx Contacts or Glasses Denies: Hx Legally Blind Neurological History: Denies: Hx Dementia, Hx Migraine, Hx Seizures, Hx Transient Ischemic Attacks (TIA) Psychiatric History: Reports: Hx Anxiety, Hx Depression, Hx Inpatient Treatment , Hx Community Mental Health Tx, Hx Substance Abuse Denies: Hx Attention Deficit Hyperactivity Disorder, Hx Eating Disorder, Hx Panic Disorder, Hx Post Traumatic Stress Disorder, Hx Schizophrenia, Hx Bipolar Disorder, Hx Suicide Attempt, Hx of Violent Episodes Against Others, Other Psychiatric Issues/Disorders - Surgical History Surgery Procedure, Year, and Place: [facility] ortho sx in past meniscus/a ligament; achilles tendon repair. Hx Anesthesia Reactions: No Infectious Disease History: No Infectious Disease History: Denies: Hx Clostridium Difficile, Hx Hepatitis, Hx Human Immunodeficiency Virus (HIV), Hx of Known/Suspected MRSA, Hx Shingles, Hx Tuberculosis, Hx Known/ Suspected VRE, Hx Known/Suspected VRSA, History Other Infectious Disease, Traveled Outside the [place] in Last 30 Days - Family History Known Family History: Positive: Cardiac Disease, Renal Disease - Social History Alcohol Use: Daily Alcohol Amount: small amount daily Hx Substance Use: No Substance Use Type: Reports: None Substance Use Comment - Amount & Last Used: last drink 08/29/16 at 1000 Hx Tobacco Use: Yes Smoking Status (MU): Former Smoker Type: Cigarettes Review of Systems Positive: Chills Positive: Photophobia Positive: Chest Pain Positive: Vomiting Positive: Headache All Other Systems Reviewed And Are Negative: Yes Physical Exam - Summary Physical Exam Summary: Appearance: Well-appearing, Well-nourished, lying in bed comfortably Skin: Warm, dry, no obvious rash Eyes: sclera anicteric, no conjunctival pallor HENT: mucous membranes moist, pharynx appears normal Neck: Supple, nontender Respiratory: Clear to auscultation, no signs of respiratory distress Cardiovascular: Normal S1, S2. No murmurs. Normal distal pulses in tibial and radial bilaterally. Abdomen: Soft, nontender, normal active bowel sounds present Musculoskeletal: Normal, Strength/ROM Intact Neurological: A&Ox3, awake and alert, mentation is normal, speech is fluent and appropriate Psychiatric: affect is normal, does not appear anxious or depressed Triage Information Reviewed: Yes Vital Signs On Initial Exam: Initial Vitals Temp Pulse Resp BP Pulse Ox 98.9 F 110 18 159/104 99 09/18/19 19:07 09/18/19 19:07 09/18/19 19:07 09/18/19 19:07 09/18/19 19:07 Vital Signs Reviewed: Yes Procedures - Sedation Patient Received Moderate/Deep Sedation with Procedure: No Diagnostics - Vital Signs Vital Signs Temp Pulse Resp BP Pulse Ox 09/18/19 19:07 98.9 F 110 18 159/104 99 - Laboratory Result Diagrams: 09/18/19 19:36 09/18/19 19:36 Lab Statement: Any lab studies that have been ordered have been reviewed, and results considered in the medical decision making process. - EKG 1927 Cardiac Rate: NL - 99 bpm EKG Rhythm: Sinus Rhythm ST Segment: Normal Ectopy: None Summary of EKG Findings: NSR at 99 BPM, P waves, QRS complex, and T waves are within normal limits, T waves and intervals are normal, no ischemic changes. This is a normal EKG. Dr. Snyder reviewed and interpreted this EKG. Headache Course/Dx - Course Course Of Treatment: 59 year old male present to the ED by EMS with a chief complaint of headache starting today at 1300. Patient reports that this headache is severe, much worse than his chronic migraines that he has had for 6 years. He also reports chest pain, chills, photophobia, numbness in his 3rd through 5th fingers in his left hand, and one episode of vomiting while in the ambulance. Patient woke up this morning feeling normal, and the pain began when he was at rest. He has a history of alcohol abuse, but denies drinking in the last 2 weeks. PMHx of DM. Physical exam is normal. EKG normal. Lab shows RBC 3.39, Hgb 11.8, Hct 34, MCV 101, MCH 35, sodium 131, chloride 98, creatinine 1.36, BUN/Creatinine Ratio 5.9, and glucose 125. Diagnosis is migraine headache. During ED course, patient was given diphenhydramine, fentanyl, ketorolac, metoclopramide, fluids, prochlorperazine, and sumatriptan. Patient will be discharged home, with PCP follow up in 2-3 days. Patient understands and agrees with the plan. - Diagnoses Provider Diagnoses: Migraine headache Discharge ED - Sign-Out/Discharge Documenting (check all that apply): Patient Departure - discharge home - Discharge Plan Condition: Good Disposition: HOME Prescriptions: Prochlorperazine 10 mg TAB [Compazine 10 mg TAB] 10 mg PO Q6H PRN #10 tab PRN Reason: Nausea Patient Education Materials: Migraine Headache (ED) Referrals: Jon Mena MD [Primary Care Provider] - 2 Days (if needed) Additional Instructions: Rest at home until the headache subsides completely. I have sent a prescription to your pharmacy to help with the symptoms. - Billing Disposition and Condition Condition: GOOD Disposition: Home - Attestation Statements Document Initiated by Tobi: Yes Documenting Scribe: Hernandez Lawrence Provider For Whom Tobi is Documenting (Include Credential): Dr. Jonathan Otto Attestation: I, harriet Gironed for Dr. Jonathan Snyder on 09/20/19 at 0328. Scribe Documentation Reviewed: Yes Provider Attestation: The documentation as recorded by the Hernandez otto accurately reflects the service I personally performed and the decisions made by me, Dr. Jonathan Snyder Status of Scribe Document: Viewed
[2019-09-18 19:49] LABS: ABS Basophils 0.1 10^3/ul (0-0.2); ABS Lymphocytes 1.1 10^3/ul (1.0-4.8); ABS Monocytes 0.5 10^3/ul (0-0.8); ABS Neutrophils 4.1 10^3/ul (1.5-7.7); Eosinophil % 0.8 %; Hematocrit 34 % (42-52); Hemoglobin 11.8 g/dL (14.0-18.0); Lymphocyte % 18.5 %; Mean Corpuscular HGB Conc 35 g/dL (31-36); Mean Corpuscular Hemoglobin 35 pg (27-31); Mean Corpuscular Volume 101 fL (80-94); Mean Platelet Volume 7.4 fL (7.4-10.4); Platelet Count 246 10^3/uL (150-450); Red Blood Count 3.39 10^6 /uL (4.18-5.48); Red Cell Distribution Width 15 % (10-15); White Blood Count 5.7 10^3/uL (3.5-10.8)
--- OUTSIDE RECORDS SUMMARY | 2019-09-18 19:49 | XMS REPORT | Summary of Care ---
:1960 Author Organization [facility] Address [address] [facility] [place] [address] Care Team Providers Name Role Phone Jon Mena Primary Care Provider Reason for Visit Reason Comments Transitional Care Management Discharged fro [facility] on 08/30/2019 for alcohol abuse. Encounter Details Date Type Department Care Team Description 09/07/2019 Office Visit [place] [facility] Jon Mena Alcoholism ([facility]) ( Primary Dx); Janeen Casanova MD Type 2 diabetes mellitus without complication, with long-term current use of insulin ([facility]); [address] [facility] Essential hypertension; [place] [address] [place] [address] Hyperlipidemia with target LDL less than 100; [phone] Non compliance with medical treatment; [phone] Does not have health insurance; (Fax) Weakness Allergies Active Allergy Reactions Severity Noted Date Comments No Known Allergies Other 08/28/2007 documented as of this encounter (statuses as of 09/07/2019) Medications Medication Sig Dispensed Refills Start Date End Date Status Lancets Does not by Does not apply route FOUR TIMES DAILY. 1. Brand:Breeze 2 100 Each 5 11/07/2009 Active apply Misc 2. Dx:Diabete 3. Insulin dependent 4. Test Blood Glucose 4 time(s) A DAY clotrimazole-betameth by Apply externally 30 g 5 12/19/2009 Active asone (LOTRISONE) route. Apply twice 1-0.05 % Apply a day to feet externally CreamIndications: Tinea pedis Glucose Blood (BLOOD 1 Each by Does not apply route TWICE DAILY. Diagnosis: Diabetes Mellitus. 300 Each 0 08/23/2015 Active GLUCOSE TEST STRIPS) Brand: INFOGRAPHIQS 2 In Vitro Strip Frequency: 2 times per day. Insulin Pen Needle Inject 1 Each 100 Each 3 05/10/2016 Active 32G X 6 MM Does not beneath the skin apply Misc DAILY. DM, daily . Blood Glucose Monitor 1 Each by Does not 1 Device 0 05/10/2016 Active Software Does not apply route apply DIRECTED. DeviceIndications: uncontrolled Type 2 diabetes insulin dependent mellitus without diabetes. Brand: complication, insurance preferred unspecified mcc insulin use status Glucose Blood In 100 Strips by In 100 Strip 5 05/10/2016 Active Vitro Vitro route THREE StripIndications: TIMES DAILY. Type 2 diabetes uncontrolled mellitus without insulin dependent complication, diabetes unspecified mcc insulin use status polyethylene glycol Take 17 g by mouth 1 Bottle 1 05/28/2016 Active (MIRALAX) Oral Powder TWO TIMES DAILY NEEDED (constipation). acetaminophen Take 2 Tabs by 120 Tab 0 06/11/2016 Active (TYLENOL) 325 MG Oral mouth EVERY FOUR Tab HOURS NEEDED for Pain. foliC acid 1 MG Oral Take 1 Tab by mouth 90 Tab 3 10/10/2016 Active Tab DAILY. pantoprazole Take 1 Tab by mouth 90 Tab 3 10/10/2016 Active (PROTONIX) 40 MG Oral DAILY. Tab EC atorvastatin Take 1 Tab by mouth 90 Tab 3 10/10/2016 Active (LIPITOR) 40 MG Oral DAILY. Tab ursodiol (ACTIGALL) Take 1 Cap by mouth 180 Cap 3 10/10/2016 Active 300 MG Oral Cap TWO TIMES DAILY WITH MEALS. LISINOPRIL-HCTZ 20-25 TAKE 1 TABLET BY 90 Tab 5 04/09/2017 Active MG Oral Tab MOUTH EVERY DAY amLodipine (NORVASC) TAKE 1 TABLET BY 90 Tab 3 04/09/2017 Active 10 MG Oral Tab MOUTH EVERY DAY APIDRA SOLOSTAR 100 INJECT 0 TO 5 UNITS 15 mL 4 06/23/2017 Active UNIT/ML Subcutaneous UNDER THE SKIN Solution Pen-injector THREE TIMES DAILY WITH MEALS NEEDED PER SLIDING SCALE sucralfate (CARAFATE) Take 1 Tab by mouth 90 Tab 5 11/04/2017 Active 1 GM Oral Tab DAILY. tramadol (ULTRAM) 50 Take 1 Tab by mouth 15 Tab 0 05/05/2018 Active MG Oral Tab EVERY EIGHT HOURS NEEDED (dental pain). Max Daily Amount: 150 mg. Insulin Glargine 100 Inject 20 Units beneath the skin DAILY. 3 pens 15 mL 3 02/23/2019 Active UNIT/ML Subcutaneous Lot: [id number] Solution Pen-injector EXP:02/10/21 documented as of this encounter (statuses as of 09/07/2019) Active Problems Problem Noted Date Diabetic ulcer of right great toe 02/23/2019 Morbid obesity due to excess calories 02/23/2019 Alcoholism in recovery 10/23/2016 Overview: [facility] admission 08/2016 for alcohol withdrawal S/p alcohol rehab [facility] 14 days Aug 2016. He did not like alcoholics anonymous S/P laparoscopic sleeve gastrectomy 07/03/2016 Overview: [facility] May 2016 Osteoarthritis of right knee 10/13/2013 Obstructive sleep apnea 07/16/2012 Overview: Sleep study [facility] [address] [facility] Severe by home sleep study jul 2015 History of tobacco use 06/06/2009 Overview: 10 cigarettes/day, began age 18 Quit fall 2013 Obesity (BMI 30-39.9) 06/06/2009 Overview: BMI 40 05/22 Essential hypertension 02/09/2009 Hyperlipidemia with target LDL less than 100 02/09/2009 Type 2 diabetes mellitus without complication 08/28/2007 Overview: A1C 7% 06/20, 7.3% 05/22 documented as of this encounter (statuses as of 09/07/2019) Resolved Problems Problem Noted Date Resolved Date Knee pain, right 10/13/2013 10/31/2014 documented as of this encounter (statuses as of 09/07/2019) Immunizations Name Administration Dates Next Due Influenza (IM) Preservative Free 08/04/2012, 05/20/2011 PNEUMOCOCCAL POLYSACCHARIDE VACCINE 09/25/2007 documented as of this encounter Social History Tobacco Use Types Packs/Day Years Used Date Former Smoker Cigarettes 0.5 25 Quit: 09/12/2015 Smokeless Tobacco: Never Used Comments: 1/2 pack daily Alcohol Use Drinks/Week oz/Week Comments Yes 2 Standard drinks or equivalent 2.0 Sex Assigned at Date Recorded Not on file documented as of this encounter Last Filed Vital Signs Vital Sign Reading Time Taken Comments Blood Pressure 140/80 09/07/2019 11:10 AM EST Pulse 88 09/07/2019 11:10 AM EST Temperature - - Respiratory Rate - - Oxygen Saturation - - Inhaled Oxygen Concentration - - Weight 118.8 kg (262 lb) 09/07/2019 11:10 AM EST Height 190.5 cm (6' 3") 09/07/2019 11:10 AM EST Body Mass Index 32.75 09/07/2019 11:10 AM EST documented in this encounter Patient Instructions Patient InstructionsJon Mena MD - 09/07/2019 11:00 AM ESTWhen you get jhony then get back on the medicationss documented in this encounter Progress Notes Jon Mena MD - 09/07/2019 11:00 AM EST TCM Statement. Review of the hospitalization: I am seeing for transition of care following hospitalization. The date of discharge was: 08/30/19 The discharge diagnosis was Alcohol abuse fall diabetes mellitus he was sent home on multiple medications for diabetes mellitus and naltrexona he stopped all of these He has appointment with [facility] for alcohol abuse he still drinks but has cut down to 2 drinks per day he has alcoholics anonymous meetings he goes to as well Patient Active Problem List Diagnosis ? Type 2 diabetes mellitus without complication (HCC) ? Essential hypertension ? Hyperlipidemia with target LDL less than 100 ? History of tobacco use ? Obesity (BMI 30-39.9) ? Obstructive sleep apnea ? Osteoarthritis of right knee ? S/P laparoscopic sleeve gastrectomy ? Alcoholism in recovery (HCC) ? Diabetic ulcer of right great toe (HCC) ? Morbid obesity due to excess calories (HCC) Medications he is taking no medication no multivitamin thiamine or folic acid Exam BP 140/80 Pulse 88 Ht 6' 3" (1.905 m) Wt 262 lb (118.8 kg) BMI 32.75 kg/m2 He is dissheveled in appearance No focal neuro findings Patient is alert and oriented times three. ICD-9-CM ICD-10-CM 1. Alcoholism (HCC) he is strongly urged to use multivitamin thiamine folic acid and naltrexone he is strongly urged to attend daily alcoholics anonymous and go to [facility] 303.90 F10.20 2. Type 2 diabetes mellitus without complication, with long-term current use of insulin (HCC) 250.00 E11.9 GLYCOHEMOGLOBIN A1C V58.67 Z79.4 COMPREHENSIVE METABOLIC PANEL LIPID PROFILE 3. Essential hypertension 401.9 I10 4. Hyperlipidemia with target LDL less than 100 272.4 E78.5 5. Non compliance with medical treatment he Is urged to use medications prescribed by Radha Rios MD V15.81 Z91.19 6. Does not have health insurance apply to jhony V60.89 Z59.8 7. Weakness due to alcohol abuse 780.79 R53.1 I reviewed the discharge summary, discharge instructions, and pertinent additional documentation obtained during hospitalization. I reconciled the medications. I also reviewed the Transition of Care documentation done by staff. The tests that were not available at the time of discharge were reviewed. Additional tests which are not yet available include: None - I am satisfied that appropriate referrals are in place to deal with the problems identified during hospitalization, and that the patient has adequate community resources and support in place. - Additional testing related to hospitilization was requested today: yes See orders. I confirmed the patient's understanding of the diagnosis and plan of care. Specific education that was provided today: Patient Instructions When you get jhony then get back on the medicationss The current and discharge medications were reconciled by me, today The source document was hospital discharge summary documented in this encounter Plan of Treatment Name Type Priority Associated Diagnoses Date/Time GLYCOHEMOGLOBIN A1C Lab Routine Type 2 diabetes 09/07/2019 11:41 AM mellitus without EST complication, with long-term current use of insulin ([facility]) COMPREHENSIVE METABOLIC Lab Routine Type 2 diabetes 09/07/2019 11:41 AM PANEL mellitus without EST complication, with long-term current use of insulin ([facility]) LIPID PROFILE Lab Routine Type 2 diabetes 09/07/2019 11:41 AM mellitus without EST complication, with long-term current use of insulin ([facility]) Health Maintenance Due Date Last Done Comments DTaP/Tdap/Td Vaccines (1 - 1971 Tdap) ZOSTER IMMUNIZATION SERIES 2010 (1 of 2) Colonoscopy 05/14/2016 05/14/2011 (Previously completed) Diabetic Eye Exam 01/22/2018 01/22/2017, 01/22/2017 FOOT EXAM 11/04/2018 11/04/2017, 11/04/2017, 11/04/2017, Additional history exists INFLUENZA VACCINE (#1) 2019 08/04/2012, 05/20/2011 HEMOGLOBIN A1C 11/15/2019 08/17/2019, 02/17/2019, 02/17/2019, Additional history exists LIPID DISORDER SCREENING 02/18/2020 02/17/2019, 11/04/2017, 07/29/2016, Additional history exists DEPRESSION SCREENING 02/24/2020 02/23/2019 PNEUMOCOCCAL 0-64 YRS Completed 09/25/2007 HEPATITIS C SCREENING Completed 11/04/2017 HEPATITIS A IMMUNIZATION Aged Out No longer eligible SERIES based on patient's age to complete this topic HPV IMMUNIZATION SERIES Aged Out No longer eligible based on patient's age to complete this topic MENINGOCOCCAL VACCINE IMM Aged Out No longer eligible based on patient's age to complete this topic documented as of this encounter Goals Goal Patient Goal Associated Recent Patient-Stated? Author Type Problems Progress Blood Pressure Blood Essential 140/80 No [place], < 140/90 Pressure hypertension (09/07/2019 Jon Casanova, 11:10 AM EST) Note: Hypertension Care Plan Based on the patient's clinical history and according to JNC 8 guidelines target blood pressure goal is less than 140/90. Based on the patient's last blood pressure of BP: 138/78 mmHg the patient is at at goal. As your provider, it is important that I advise you regarding: your current medications and help you with any challenges you may face taking your medications as directed (ex. instructions, cost, side effects, and interactions). Important lifestyle changes: exercise, weight reduction and dietary sodium reduction your clinical goals and how you can achieve success: weight reduction, exercise plan and diet improvements medication management: N/A diet only patient education/self-management tools provided: Current self-management tools adequate To successfully manage my Hypertension I will: monitor my blood pressure daily, understanding that my goal is less than 140/ 90 per my healthcare provider's recommendation. I will schedule an appointment with my provider if consistent abnormal readings greater than 160/100. take medications every day as prescribed by my healthcare provider and if unable to take them I will discuss with my provider. monitor for symptoms of chest pain, chest tightness/pressure, irregular heartbeat, persistent dizziness, radiating arm pain, and neck or jaw pain. If any of these symptoms are noticed I will seek medical attention immediately by calling 911 exercise/walk 30 minutes 7 day(s) per week. If I experience chest pain, chest tightness, or shortness of breath, I will seek medical attention immediately. follow a diet rich in fruits, vegetables, and low-fat dairy products with reduced content of saturated & total fat. I will reduce my sodium intake daily. An example is the DASH diet. To obtain more information please refer to the DASH Eating Plan listed in Educational Resources. record my blood pressure results. [employer] is safe and secure way for you to do this in your medical record online. try to obtain an ideal body weight. My recent weight was Weight: 320 lb ( 145.151 kg). My weight loss goal for my next office visit is 299 . limit alcohol consumption. For men two drinks per day and women one drink per day. if currently smoking, will discuss how to quit smoking with my healthcare provider and work towards quitting. Educational Resources: National Heart, Lung, & Blood [employer] http://nhlbi.nih.gov/hbp/index.html The DASH Diet Eating Plan http://www.nhlbi.nih.gov/health/health-topics/ topics/dash/ Academy of Nutrition & DIetetics http://eatright.org National Smoking Cessation Site http://smokefree.gov Blood Pressure < Blood Pressure 140/80 (09/07/2019 11:10 Jon Castrejon, 140/90 AM ESTIvan HERNÁNDEZ Note: This is an individualized treatment (blood pressure) goal for Tee Mederos: Displayed above (on the left) is your goal for blood pressure control. Your most recent blood pressure is also shown above, on the right. You should try to achieve blood pressures that are lower than your goal listed above (on the left). Depression screen (PHQ-9) total score < 5 Depression Jon Castrejon MD Note: This is an individualized treatment (depression) goal for Tee Mederos: Displayed above is your goal for a depression screening (PHQ-9) score that would indicate good control of your depression. Diabetes < 7.0 Diabetes Type 2 diabetes 6.7 (02/17/2019 Jon Castrejon mellitus without 11:10 AM EDTIvan Casanova MD complication Note: Diabetes Care Plan According to current 2014 ADA guidelines the patient A1C goal is less than 7. The patient's last A1C was Lab Results Component Value Date GLYCOHEMOGLOBIN A1C 10.7* 06/06/2015 The patient is:above goal . As your provider, it is important that I advise you regarding: your current medications and help you with any challenges you may face taking your medications as directed (ex. instructions, cost, side effects, and interactions). Important lifestyle changes:exercise, diet, glucose monitoring and medication compliance your clinical goals and how you can achieve success:weight reduction, exercise plan, diet management and glucose monitoring medication management: N/A diet only patient education/self-management tools provided: Current self-management tools adequate To successfully manage my Diabetes I will: have lab work every six months if my previous A1c was 7 or less. If my results were greater than 7, I will have lab work every three months. My goal is to control my diabetes by keeping A1c below 7.0 take medications every day as prescribed by my healthcare provider and if unable to take them I will discuss with my provider. exercise/walk 30 minutes 7 day(s) per week. If I experience chest pain, chest tightness, or shortness of breath, I will seek medical attention immediately. check feet daily. If sores or irritation are noticed, will seek medical attention. follow a low carbohydrate and low fat diet. My goal is an LDL (bad cholesterol) number less than 100 when I have my routine lab work. check blood sugar as instructed and will call my healthcare provider if the results are consistently below 70 or above 300. I will monitor for symptoms of low blood sugar (feeling faint, dizzy, lig htheaded, jittery, sweaty, or hungry), if symptoms are noticed, I will eat or drink something (glucose tabs, orange juice, candy) to help raise sugar. record my blood sugar results (including dextrose sticks). [facility] is safe and secure way for you to do this in your medical record online. try to obtain an ideal body weight. My recent weight was Weight: 330 lb ( 149.687 kg). My weight loss goal for my next office visit is 320. to prevent kidney problems common to people with diabetes I will complete a yearly Microalbumin to check for protein in urine. I will talk with my healthcare provider about medications to prevent diabetic renal disease. to prevent diabetic retinopathy I will see an eye doctor yearly. A yearly dilated eye exam helps prevent blindness. if currently smoking, will discuss how to quit smoking with my healthcare provider and work towards quitting. Glycohemoglobin A1c < 7.0 Diabetes 6.7 (02/17/2019 11:10 AM Jon Castrejon EDT) MD Note: This is an individualized treatment (diabetes control, HgbA1C) goal for Tee Mederos: Displayed above is your progress towards your HgbA1C goal. Your goal is shown above (on the left); your most recent HgbA1C is shown on the right. Note that lower numbers are better. Weight loss vs. 18 mo Lifestyle 7.3 (09/07/2019 11:10 AM Jon Castrejon MD max (lbs) >= 10 EST) Note: This is an individualized lifestyle goal for Tee Mederos: Your body mass index (BMI) is more than 30. You should lose weight. A reasonable starting goal is to lose 10 pounds. Displayed above is how many pounds you have lost thus far towards your 10 pound weight loss goal. Keep a regular sleep schedule Lifestyle Jon Castrejon MD Note: This is an individualized lifestyle goal for Story Eliecer SinghMederos: Please maintain a regular sleep schedule. This may help with some symptoms of depression. Keep immunizations current Lifestyle Jon Castrejon MD Note: This is an individualized lifestyle goal for Story Eliecer Rosa M: Please be sure to keep up-to-date on recommended immunizations. For example, this would include a yearly influenza vaccine. Immunization status can be seen by looking at the Health Maintenance sections of your [employer], Plan of Care, and any After Visit Summaries. Take all prescribed medications as Self-management Jon Castrejon MD directed Note: This is an individualized self-management goal for Tee Mederos: Please take all prescribed medications as directed. 1. Do not skip doses. If you cannot afford your medications, talk with your doctor. 2. Use a pill reminder system such as a pill box if needed. Your pharmacist can help you with this. 3. Contact your Pharmacy 5 days before your medication runs out. If you cannot take your medications for any reasons, talk with your doctor. 4. Please bring all of your medication bottles and inhalers (or a list of all your medications/inhalers) with you to every visit. Potential barriers to meeting all of your care plan goals will continue to be addressed on an ongoing basis. documented as of this encounter Results Not on filedocumented in this encounter Visit Diagnoses Diagnosis Type 2 diabetes mellitus without complication, with long-term current use of insulin (HCC) Essential hypertension Unspecified essential hypertension Hyperlipidemia with target LDL less than 100 Other and unspecified hyperlipidemia Alcoholism (HCC) Other and unspecified alcohol dependence, unspecified drinking behavior Non compliance with medical treatment Personal history of noncompliance with medical treatment, presenting hazards to health Does not have health insurance Other specified housing or economic circumstances Weakness Other malaise and fatigue documented in this encounter Insurance Payer Benefit Plan / Subscriber ID Effective Dates Phone Address Type Group [facility] [id number] 2019-[facility] Blue t Cross/Blue Shield Guarantor Name Account Type Relation to Date of Phone Billing Address Patient MederosTee lenz Personal/Famil 1960 [address]Home) [address] [phone] [place], [place] (Work) [id number] documented as of this encounter
[2019-09-18 19:59] LABS: Albumin 3.6 g/dL (3.2-5.2); Albumin/Globulin Ratio 1.3 (1-3); BUN/Creatinine Ratio 5.9 (8-20); Calcium 8.8 mg/dL (8.6-10.3); EGFR African American 64.9 (>60); EGFR Non-African American 53.6 (>60); Globulin 2.8 g/dL (2-4); Potassium 3.7 mmol/L (3.5-5.0); Total Bilirubin 0.6 mg/dL (0.2-1.0); Total Protein 6.4 g/dL (6.4-8.9)
[2019-09-18 20:02] LABS: Troponin I 0.01 ng/mL (<0.03)
[2019-09-18] MEDS ORDERED: Metoclopramide IV* 5 MG/ML 2 ML VIAL IV SLOW PU ONE (21:57)
[2019-09-18] MEDS ORDERED: SUMAtriptan SQ* 6 MG/0.5 ML VIAL SUBCUT ONE (21:57)
[2019-09-19] MEDS ORDERED: fentaNYL* 50 MCG/ML 2 ML VIAL (100 MCG VIAL) IV SLOW PU ONE (00:26)
[2019-09-19 04:49] VITALS: BP 128/78
== END 2019-09-19 04:48 | disposition home or self-care (01) ==
LOC: ED 18:55
DX: G43.909 Migraine, unspecified, not intractable, without status migrainosus (principal); R07.89 Other chest pain; R20.0 Anesthesia of skin; R11.10 Vomiting, unspecified; E11.9 Type 2 diabetes mellitus without complications; I34.0 Nonrheumatic mitral (valve) insufficiency; G47.30 Sleep apnea, unspecified; K21.9 Gastro-esophageal reflux disease without esophagitis; Z79.82 Long term (current) use of aspirin; Z79.899 Other long term (current) drug therapy; Z87.891 Personal history of nicotine dependence
CPT/HCPCS: 36415; 80053; 83605; 84484; 85025; 93005; 96361; 96372; 96374; 96375; 99284; J0780; J1200; J1885; J2765; J3010; J3030

== ENCOUNTER 2020-01-28 08:42 | Inpatient (IN) ==
[2020-01-28] MEDS ORDERED: NS 0.9% 1000 ml BAG 1,000 ML IV ONE ×2 (08:50→08:58)
[2020-01-28] MEDS ORDERED: LORazepam 2 mg VIAL 1 ml IV PUSH ONE (08:58)
[2020-01-28] MEDS ORDERED: Lorazepam PYXIS KEY PRN (08:58)
[2020-01-28] MEDS ORDERED: Ondansetron 4 mg VIAL 2 MG/ML 2 ml VIAL IV ONE (08:59)
[2020-01-28] MEDS ORDERED: Multivitamins/Minerals TAB PO SCH (09:00)
[2020-01-28] MEDS ORDERED: Thiamine 100 MG/ML 2 ml VIAL (200 mg) IM ONE (09:00)
[2020-01-28 09:13] LABS: ABS Lymphocytes 1.4 10^3/ul (1.0-4.8); ABS Monocytes 0.3 10^3/ul (0-0.8); Eosinophil % 0.4 %; Hematocrit 40 % (42-52); Lymphocyte % 22.5 %; Mean Corpuscular HGB Conc 35 g/dL (31-36); Mean Corpuscular Hemoglobin 35 pg (27-31); Mean Corpuscular Volume 100 fL (80-94); Mean Platelet Volume 7.6 fL (7.4-10.4); Nucleated Red Blood Cells % 0.1; Platelet Count 144 10^3/uL (150-450); Red Blood Count 4.03 10^6 /uL (4.18-5.48); Red Cell Distribution Width 14 % (10-15); White Blood Count 6.3 10^3/uL (3.5-10.8)
[2020-01-28] MEDS ORDERED: Lorazepam PYXIS KEY ONE (09:21)
[2020-01-28 09:32] LABS: ALT 168 U/L (7-52); AST 387 U/L (13-39); Albumin 3.4 g/dL (3.2-5.2); Albumin/Globulin Ratio 1.2 (1-3); Alkaline Phosphatase 91 U/L (34-104); BUN/Creatinine Ratio 15.6 (8-20); Blood Urea Nitrogen 42 mg/dL (6-24); Calcium 8.2 mg/dL (8.6-10.3); Chloride 102 mmol/L (101-111); EGFR African American 29.4 (>60); EGFR Non-African American 24.3 (>60); Globulin 2.9 g/dL (2-4); Glucose 234 mg/dL (70-100); Potassium 3.7 mmol/L (3.5-5.0); Sodium 136 mmol/L (135-145); Total Protein 6.3 g/dL (6.4-8.9)
[2020-01-28 09:38] LABS: Alcohol, S 108 mg/dL (<10); Anion Gap 20 mmol/L (2-11); CO2 Carbon Dioxide 14 mmol/L (22-32)
[2020-01-28 10:09] LABS: Magnesium 1.5 mg/dL (1.9-2.7); Phosphorus 4.2 mg/dL (2.5-5.0)
[2020-01-28] MEDS ORDERED: Magnesium Sulfate 2 gm BAG 2 GM/50 ML BAG IVPB ONE (10:25)
[2020-01-28] MEDS ORDERED: Polyethylene Glycol 3350 17 GM PACKET PO PRN (11:24)
[2020-01-28] MEDS ORDERED: Prochlorperazine 5 mg/ml 2 ml VIAL (10 mg) IV PRN (11:25)
[2020-01-28] MEDS ORDERED: Dextrose 50% Syringe 50 ml 25 GM/50 ML SYRINGE IV PUSH PRN (11:26)
[2020-01-28] MEDS ORDERED: Sodium Bicarb 8.4% Vial 50 ML 150 MEQ in D5W 1000 ml BAG 850 ML IV ONE (11:45)
[2020-01-28 12:06] LABS: Troponin I 0.05 ng/mL (<0.03)
[2020-01-28] MEDS: Heparin 5000 UNITS/ML 1 mL VIAL SUBCUT SCH ×2 (12:49→21:54)
[2020-01-28] MEDS: NS 0.9% 1000 ml BAG 1,000 ML IV SCH (12:50)
[2020-01-28] MEDS: LORazepam 2 mg VIAL 1 ml IV PUSH SCH ×2 (13:31→17:26)
[2020-01-28] MEDS ORDERED: Perflutren Lipid Microsphere 3 ML VIAL ONE (13:57)
[2020-01-28 15:15] LABS: Troponin I 0.05 ng/mL (<0.03)
[2020-01-28 17:25] LABS: Troponin I 0.06 ng/mL (<0.03)
[2020-01-28] MEDS: Insulin GLARGINE 100 un/ml 10 ml VIAL SUBCUT SCH (21:56)
[2020-01-29 00:03] LABS: Urine Appearance Clear; Urine Bilirubin Negative (Negative); Urine Blood 1+ (Negative); Urine Color Yellow; Urine Glucose 1+(50 mg/dL) (Negative); Urine Ketones Trace (Negative); Urine Nitrite Negative (Negative); Urine Protein 2+(100 mg/dL) (Negative); Urine Specific Gravity 1.014 (1.010-1.030); Urine Urobilinogen Negative (Negative)
[2020-01-29 00:04] LABS: Urine Bacteria Absent (Absent); Urine Red Blood Cell Trace(0-2/hpf) (Absent); Urine White Blood Cell Trace(0-5/hpf) (Absent)
[2020-01-29 00:17] LABS: Urine Benzodiazepine Screen None Detected (None Detect); Urine Opiates Screen None Detected (None Detect)
[2020-01-29] MEDS: NS 0.9% 1000 ml BAG 1,000 ML IV SCH (03:10)
[2020-01-29] MEDS: LORazepam 2 mg VIAL 1 ml IV PUSH SCH (03:30)
[2020-01-29 05:47] LABS: ABS Eosinophils 0.1 10^3/ul (0-0.6); ABS Lymphocytes 1.2 10^3/ul (1.0-4.8); ABS Monocytes 0.2 10^3/ul (0-0.8); Eosinophil % 1.2 %; Hematocrit 33 % (42-52); Hemoglobin 11.5 g/dL (14.0-18.0); Lymphocyte % 24.5 %; Mean Corpuscular HGB Conc 35 g/dL (31-36); Mean Corpuscular Hemoglobin 35 pg (27-31); Mean Corpuscular Volume 99 fL (80-94); Mean Platelet Volume 7.8 fL (7.4-10.4); Red Cell Distribution Width 14 % (10-15); White Blood Count 4.7 10^3/uL (3.5-10.8)
[2020-01-29] MEDS: Heparin 5000 UNITS/ML 1 mL VIAL SUBCUT SCH ×3 (05:47→20:12)
[2020-01-29 06:01] LABS: Albumin 2.8 g/dL (3.2-5.2); Albumin/Globulin Ratio 1.2 (1-3); BUN/Creatinine Ratio 18.3 (8-20); Calcium 7.9 mg/dL (8.6-10.3); EGFR African American 38.7 (>60); Globulin 2.3 g/dL (2-4); Magnesium 1.7 mg/dL (1.9-2.7); Potassium 3.3 mmol/L (3.5-5.0); Total Bilirubin 1.2 mg/dL (0.2-1.0); Total Protein 5.1 g/dL (6.4-8.9)
[2020-01-29 07:29] LABS: Platelet Count 89 10^3/uL (150-450)
[2020-01-29] MEDS ORDERED: Potassium Chlor 20 meq TAB.ER PO ONE (07:45)
[2020-01-29] MEDS ORDERED: Magnesium Sulfate 2 gm BAG 2 GM/50 ML BAG IVPB ONE (07:45)
[2020-01-29] MEDS: Multivitamins/Minerals TAB PO SCH (08:36)
[2020-01-29] MEDS: Insulin GLARGINE 100 un/ml 10 ml VIAL SUBCUT SCH (20:13)
[2020-01-30] MEDS: Heparin 5000 UNITS/ML 1 mL VIAL SUBCUT SCH ×3 (05:34→20:16)
[2020-01-30] MEDS: Multivitamins/Minerals TAB PO SCH (08:26)
[2020-01-30 14:43] LABS: Hematocrit 33 % (42-52); Hemoglobin 11.5 g/dL (14.0-18.0); Mean Corpuscular HGB Conc 35 g/dL (31-36); Mean Corpuscular Hemoglobin 36 pg (27-31); Mean Corpuscular Volume 102 fL (80-94); Mean Platelet Volume 8.3 fL (7.4-10.4); Platelet Count 96 10^3/uL (150-450); Red Blood Count 3.22 10^6 /uL (4.18-5.48); Red Cell Distribution Width 14 % (10-15); White Blood Count 3.7 10^3/uL (3.5-10.8)
[2020-01-30 14:58] LABS: BUN/Creatinine Ratio 18.2 (8-20); Blood Urea Nitrogen 30 mg/dL (6-24); CO2 Carbon Dioxide 22 mmol/L (22-32); Calcium 8.2 mg/dL (8.6-10.3); Chloride 105 mmol/L (101-111); EGFR African American 51.9 (>60); EGFR Non-African American 42.9 (>60); Glucose 218 mg/dL (70-100); Magnesium 1.8 mg/dL (1.9-2.7); Sodium 138 mmol/L (135-145)
[2020-01-30 15:01] LABS: Anion Gap 11 mmol/L (2-11)
[2020-01-30] MEDS: Insulin GLARGINE 100 un/ml 10 ml VIAL SUBCUT SCH (20:17)
[2020-01-31] MEDS: Heparin 5000 UNITS/ML 1 mL VIAL SUBCUT SCH ×3 (05:51→20:38)
[2020-01-31] MEDS: Multivitamins/Minerals TAB PO SCH (07:53)
[2020-01-31] MEDS: Insulin GLARGINE 100 un/ml 10 ml VIAL SUBCUT SCH (20:38)
[2020-02-01] MEDS: Heparin 5000 UNITS/ML 1 mL VIAL SUBCUT SCH ×3 (05:35→20:39)
[2020-02-01 06:50] LABS: Corrected Retic Count 0.9 % (0.5-1.5); Hematocrit for Retic CNT 31 % (42-52); Immature Retic Fraction 0.69; RBC Retic Count 3.06 10^6/uL (4.18-5.48)
[2020-02-01 06:58] LABS: % Iron Saturation 50 % (15-55); Anion Gap 4 mmol/L (2-11); BUN/Creatinine Ratio 18.8 (8-20); Blood Urea Nitrogen 29 mg/dL (6-24); CO2 Carbon Dioxide 24 mmol/L (22-32); Calcium 7.9 mg/dL (8.6-10.3); Chloride 109 mmol/L (101-111); EGFR African American 56.2 (>60); EGFR Non-African American 46.5 (>60); Glucose 191 mg/dL (70-100); Iron 96 ug/dL (50-212); Potassium 3.8 mmol/L (3.5-5.0); Sodium 137 mmol/L (135-145); Total Iron Binding Capacity 193 mcg/dL (250-450); Transferrin 138 mg/dL (203-362)
[2020-02-01] MEDS: Multivitamins/Minerals TAB PO SCH (08:19)
[2020-02-01] MEDS: Insulin GLARGINE 100 un/ml 10 ml VIAL SUBCUT SCH (20:40)
[2020-02-02] MEDS: Heparin 5000 UNITS/ML 1 mL VIAL SUBCUT SCH ×3 (05:24→21:30)
[2020-02-02] MEDS: Multivitamins/Minerals TAB PO SCH (08:01)
[2020-02-02] MEDS: Insulin GLARGINE 100 un/ml 10 ml VIAL SUBCUT SCH (21:31)
[2020-02-03] MEDS: Heparin 5000 UNITS/ML 1 mL VIAL SUBCUT SCH ×3 (05:04→20:50)
[2020-02-03] MEDS: Multivitamins/Minerals TAB PO SCH (07:46)
[2020-02-03] MEDS: Insulin GLARGINE 100 un/ml 10 ml VIAL SUBCUT SCH (20:51)
[2020-02-04] MEDS: Heparin 5000 UNITS/ML 1 mL VIAL SUBCUT SCH ×3 (05:03→21:43)
[2020-02-04 06:17] LABS: ABS Eosinophils 0.1 10^3/ul (0-0.6); ABS Lymphocytes 1.1 10^3/ul (1.0-4.8); ABS Monocytes 0.5 10^3/ul (0-0.8); Eosinophil % 1.4 %; Hematocrit 32 % (42-52); Hemoglobin 10.8 g/dL (14.0-18.0); Lymphocyte % 26.7 %; Mean Corpuscular HGB Conc 34 g/dL (31-36); Mean Corpuscular Hemoglobin 35 pg (27-31); Mean Corpuscular Volume 102 fL (80-94); Nucleated Red Blood Cells % 0.3; Platelet Count 249 10^3/uL (150-450); Red Blood Count 3.13 10^6 /uL (4.18-5.48); Red Cell Distribution Width 14 % (10-15)
[2020-02-04] MEDS: Multivitamins/Minerals TAB PO SCH (08:07)
[2020-02-04] MEDS: Insulin GLARGINE 100 un/ml 10 ml VIAL SUBCUT SCH (21:42)
[2020-02-05] MEDS: Heparin 5000 UNITS/ML 1 mL VIAL SUBCUT SCH ×3 (05:05→22:03)
[2020-02-05] MEDS: Multivitamins/Minerals TAB PO SCH (08:19)
[2020-02-05] MEDS: Insulin GLARGINE 100 un/ml 10 ml VIAL SUBCUT SCH (22:04)
[2020-02-06] MEDS: Heparin 5000 UNITS/ML 1 mL VIAL SUBCUT SCH ×3 (06:56→22:30)
[2020-02-06] MEDS: Multivitamins/Minerals TAB PO SCH (08:40)
[2020-02-06] MEDS: Insulin GLARGINE 100 un/ml 10 ml VIAL SUBCUT SCH (22:30)
[2020-02-07] MEDS: Heparin 5000 UNITS/ML 1 mL VIAL SUBCUT SCH (07:30)
[2020-02-07 07:58] VITALS: BP 113/83
[2020-02-07] MEDS: Multivitamins/Minerals TAB PO SCH (08:06)
== END 2020-02-07 08:45 | DRG 775 ==
LOC: ED 08:42 → MEDTELE 11:43
PROVIDERS: ADMIT Internal Medicine; ATTEND Internal Medicine

== ENCOUNTER 2022-08-05 13:14 | Inpatient (IN) ==
[2022-08-05] MEDS ORDERED: Magnesium Hydroxide LIQ 30 ML UDC PO PRN (15:51)
[2022-08-05] MEDS ORDERED: Senna TAB 8.6 mg TAB PO PRN (15:51)
[2022-08-05] MEDS: Enoxaparin 40 MG/0.4 ML SYR SUBCUT SCH (17:50)
[2022-08-06 08:24] LABS: Calcium 8.7 mg/dL (8.6-10.3); Creatinine, Serum 2.17 mg/dL (0.67-1.17); Magnesium 2.2 mg/dL (1.9-2.7); Potassium 4.4 mmol/L (3.5-5.0); eGFR CKD-EPI 33.6 (>60)
[2022-08-06] MEDS: Aspirin EC 81 mg TAB.EC (enteric coated) PO SCH (09:45)
[2022-08-06] MEDS: Enoxaparin 40 MG/0.4 ML SYR SUBCUT SCH (17:06)
[2022-08-07 06:35] LABS: ABS Eosinophils 0.2 10^3/ul (0-0.6); ABS Lymphocytes 1.3 10^3/ul (1.0-4.8); ABS Monocytes 0.6 10^3/ul (0-0.8); Eosinophil % 3.1 %; Hematocrit 40 % (42-52); Hemoglobin 12.9 g/dL (14.0-18.0); Lymphocyte % 20.9 %; Mean Corpuscular HGB Conc 32 g/dL (31-36); Mean Corpuscular Hemoglobin 31 pg (27-31); Mean Corpuscular Volume 96 fL (80-94); Mean Platelet Volume 7.5 fL (7.4-10.4); Nucleated Red Blood Cells % 0.1; Platelet Count 231 10^3/uL (150-450); Red Blood Count 4.14 10^6 /uL (4.18-5.48); Red Cell Distribution Width 14 % (10-15); White Blood Count 6.2 10^3/uL (3.5-10.8)
[2022-08-07 07:09] LABS: Albumin 3.3 g/dL (3.2-5.2); Albumin/Globulin Ratio 1.7 (1-3); Calcium 8.3 mg/dL (8.6-10.3); Creatinine, Serum 2.27 mg/dL (0.67-1.17); Globulin 1.9 g/dL (2-4); Total Bilirubin 0.3 mg/dL (0.2-1.0); Total Protein 5.2 g/dL (6.4-8.9); eGFR CKD-EPI 31.8 (>60)
[2022-08-07] MEDS: Aspirin EC 81 mg TAB.EC (enteric coated) PO SCH (08:30)
[2022-08-07] MEDS: Enoxaparin 40 MG/0.4 ML SYR SUBCUT SCH (16:42)
[2022-08-07] MEDS ORDERED: DULAGLUTIDE 0.75 MG/0.5 ML SUBCUT SCH (21:00)
[2022-08-08] MEDS: Aspirin EC 81 mg TAB.EC (enteric coated) PO SCH (08:57)
[2022-08-08] MEDS: Enoxaparin 40 MG/0.4 ML SYR SUBCUT SCH (17:06)
[2022-08-09] MEDS: Aspirin EC 81 mg TAB.EC (enteric coated) PO SCH (09:14)
[2022-08-09] MEDS: Enoxaparin 40 MG/0.4 ML SYR SUBCUT SCH (17:00)
[2022-08-10] MEDS: Aspirin EC 81 mg TAB.EC (enteric coated) PO SCH (07:58)
[2022-08-10] MEDS: Enoxaparin 40 MG/0.4 ML SYR SUBCUT SCH (17:17)
[2022-08-11] MEDS: Aspirin EC 81 mg TAB.EC (enteric coated) PO SCH (08:52)
[2022-08-11] MEDS: Enoxaparin 40 MG/0.4 ML SYR SUBCUT SCH (16:52)
[2022-08-12] MEDS: Aspirin EC 81 mg TAB.EC (enteric coated) PO SCH (08:37)
[2022-08-12] MEDS: Enoxaparin 40 MG/0.4 ML SYR SUBCUT SCH (19:11)
[2022-08-13 05:45] VITALS: BP 134/79
[2022-08-13] MEDS: Aspirin EC 81 mg TAB.EC (enteric coated) PO SCH (08:17)
== END 2022-08-13 14:23 | disposition home or self-care (01) | DRG 58 ==
LOC: PMRU 13:14
PROVIDERS: ADMIT Physical Medicine & Rehabilitation; ATTEND Physical Medicine & Rehabilitation

== ENCOUNTER 2022-08-23 01:03 | Inpatient (IN) ==
[2022-08-23] MEDS ORDERED: Al Hydrox/Mg Hydrox/Simet LIQ 30 ML UDC PO ONE (01:13)
[2022-08-23] MEDS ORDERED: Morphine 2 MG/ML SYRINGE IV PRN ×2 (01:40→04:41)
[2022-08-23 01:44] LABS: ABS Eosinophils 0.1 10^3/ul (0-0.6); ABS Lymphocytes 0.8 10^3/ul (1.0-4.8); ABS Monocytes 0.4 10^3/ul (0-0.8); ABS Neutrophils 7.8 10^3/ul (1.5-7.7); Hematocrit 38 % (42-52); Hemoglobin 12.5 g/dL (14.0-18.0); Lymphocyte % 8.7 %; Mean Corpuscular HGB Conc 33 g/dL (31-36); Mean Corpuscular Hemoglobin 31 pg (27-31); Mean Corpuscular Volume 95 fL (80-94); Mean Platelet Volume 6.8 fL (7.4-10.4); Nucleated Red Blood Cells % 0.1; Platelet Count 229 10^3/uL (150-450); Red Blood Count 3.99 10^6 /uL (4.18-5.48); Red Cell Distribution Width 13 % (10-15); White Blood Count 9.2 10^3/uL (3.5-10.8)
[2022-08-23 02:11] LABS: Albumin 3.7 g/dL (3.2-5.2); Albumin/Globulin Ratio 1.6 (1-3); Calcium 8.8 mg/dL (8.6-10.3); Creatinine, Serum 2.59 mg/dL (0.67-1.17); Globulin 2.3 g/dL (2-4); Potassium 4.2 mmol/L (3.5-5.0); Total Bilirubin 0.3 mg/dL (0.2-1.0); eGFR CKD-EPI 27.2 (>60)
[2022-08-23] MEDS ORDERED: NS 0.9% 1000 ml BAG 1,000 ML IV ONE (04:26)
[2022-08-23] MEDS ORDERED: Ondansetron 4 mg VIAL 2 MG/ML 2 ml VIAL IV PRN (04:30)
[2022-08-23] MEDS ORDERED: Lactated Ringers 1000 ml BAG 1,000 ML IV SCH (05:00)
[2022-08-23] MEDS: hydrALAZINE 20 mg/ml 1 ML Vial IV IV SLOW PU SCH ×4 (06:17→23:16)
[2022-08-23] MEDS: Metoprolol Tartrate 5 mg VIAL 5 ml VIAL (1 mg/ml) IV SCH ×3 (06:17→18:06)
[2022-08-23] MEDS: Pantoprazole VIAL 40 MG VIAL IV SCH (08:27)
[2022-08-23] MEDS: Acetaminophen IV 1 GM/100ML 1,000 MG/100 ML BAG IV PRN ×2 (08:27→15:46)
[2022-08-23] MEDS ORDERED: Diatrizoate Meg/Sod(CONTRAST) 30 ML ORAL.SOLN PO ONE (09:37)
[2022-08-23] MEDS: Heparin 5000 UNITS/ML 1 mL VIAL SUBCUT SCH ×2 (09:55→21:39)
[2022-08-24] MEDS ORDERED: Metoprolol Tartrate 5 mg VIAL 5 ml VIAL (1 mg/ml) IV SCH ×2 (00:08→07:30)
[2022-08-24] MEDS: Metoprolol Tartrate 5 mg VIAL 5 ml VIAL (1 mg/ml) IV SCH (00:13)
[2022-08-24] MEDS: hydrALAZINE 20 mg/ml 1 ML Vial IV IV SLOW PU SCH (05:59)
[2022-08-24 06:02] LABS: ABS Eosinophils 0.2 10^3/ul (0-0.6); ABS Lymphocytes 1.8 10^3/ul (1.0-4.8); ABS Monocytes 0.5 10^3/ul (0-0.8); ABS Neutrophils 5.2 10^3/ul (1.5-7.7); Hematocrit 38 % (42-52); Hemoglobin 12.3 g/dL (14.0-18.0); Lymphocyte % 22.7 %; Mean Corpuscular HGB Conc 33 g/dL (31-36); Mean Corpuscular Hemoglobin 31 pg (27-31); Mean Corpuscular Volume 96 fL (80-94); Mean Platelet Volume 7.2 fL (7.4-10.4); Platelet Count 219 10^3/uL (150-450); Red Blood Count 3.96 10^6 /uL (4.18-5.48); Red Cell Distribution Width 14 % (10-15); White Blood Count 7.8 10^3/uL (3.5-10.8)
[2022-08-24 06:21] LABS: Albumin 3.2 g/dL (3.2-5.2); Albumin/Globulin Ratio 1.5 (1-3); Calcium 8.5 mg/dL (8.6-10.3); Globulin 2.2 g/dL (2-4); Magnesium 2.4 mg/dL (1.9-2.7); Potassium 4.3 mmol/L (3.5-5.0); Total Bilirubin 0.4 mg/dL (0.2-1.0); Total Protein 5.4 g/dL (6.4-8.9)
[2022-08-24] MEDS: Pantoprazole VIAL 40 MG VIAL IV SCH (08:51)
[2022-08-24] MEDS: Heparin 5000 UNITS/ML 1 mL VIAL SUBCUT SCH (08:52)
[2022-08-24] MEDS ORDERED: Morphine 2 MG/ML SYRINGE IV PRN (09:59)
[2022-08-24 11:10] VITALS: BP 151/66
== END 2022-08-24 14:55 | disposition home or self-care (01) | DRG 247 ==
LOC: ED 01:03 → EDHOLD 04:30 → SSU 08:15
PROVIDERS: ADMIT Student in an Organized Health Care Education/Training Program; ATTEND Student in an Organized Health Care Education/Training Program

== ENCOUNTER 2023-08-05 13:26 | Observation (INO) ==
[2023-08-05 14:05] LABS: ABS Eosinophils 0.1 10^3/uL (0.0-0.5); ABS Lymphocytes 1.2 10^3/uL (1.0-4.8); ABS Monocytes 0.3 10^3/uL (0.0-1.1); ABS Nucleated RBC 0.02 10^3/ul; Eosinophil % 1.6 %; Hematocrit 41.5 % (38-53); Hemoglobin 13.7 g/dL (13.2-16.3); Lymphocyte % 25.8 %; Mean Corpuscular Hemoglobin 31.9 pg (27-33); Mean Corpuscular Hgb Conc 33.1 g/dL (31-36); Mean Corpuscular Volume 96.4 fL (80-97); Mean Platelet Volume 6.9 fL (7.5-11.2); Nucleated Red Blood Cells % 0.4 %/100WBC (0.0-0.8); Platelet Count 244 10^3/uL (150-450); Red Cell Distribution Width 15.8 % (12-17); White Blood Count 4.6 10^3/uL (3.6-10.2)
[2023-08-05 14:17] LABS: INR 0.98 (0.83-1.13)
[2023-08-05 14:26] LABS: ALT 7 U/L (7-52); AST 11 U/L (13-39); Albumin 3.3 g/dL (3.2-5.2); Albumin/Globulin Ratio 1.3 (1-3); Alkaline Phosphatase 76 U/L (35-149); Anion Gap 6 mmol/L (2-16); Blood Urea Nitrogen 38 mg/dL (6-24); CO2 Carbon Dioxide 19 mmol/L (22-32); Calcium 8.1 mg/dL (8.6-10.3); Chloride 111 mmol/L (101-111); Creatinine, Serum 4.29 mg/dL (0.67-1.17); Globulin 2.5 g/dL (2-4); Glucose 97 mg/dL (70-100); Potassium 4.8 mmol/L (3.5-5.0); Sodium 136 mmol/L (135-145); Total Bilirubin 0.4 mg/dL (0.2-1.0); Total Protein 5.8 g/dL (6.4-8.9); eGFR CKD-EPI 14.7 (>60)
[2023-08-05 14:30] LABS: High Sens Troponin Baseline 18 pg/mL (<20)
[2023-08-05 15:51] LABS: High Sensitivity Troponin 1 Hr 19 pg/mL (<20)
[2023-08-05] MEDS ORDERED: NS 0.9% 1000 ml BAG 1,000 ML IV ONE (16:25)
[2023-08-05] MEDS ORDERED: Albuterol HFA INHALER 8 gm MDI INH ONE (16:40)
[2023-08-05] MEDS ORDERED: Ondansetron 4 mg VIAL 2 MG/ML 2 ml VIAL IV PRN (19:26)
[2023-08-05] MEDS ORDERED: Senna TAB 8.6 mg TAB PO PRN (19:26)
[2023-08-05 19:52] LABS: C Reactive Protein < 1.00 mg/L (<8.01)
[2023-08-05 20:05] LABS: Urine Appearance Clear; Urine Bilirubin Negative (Negative); Urine Blood Negative (Negative); Urine Color Yellow; Urine Glucose 1+(50 mg/dL) (Negative); Urine Ketones Negative (Negative); Urine Nitrite Negative (Negative); Urine Protein 3+(>=500 mg/dL) (Negative); Urine Specific Gravity 1.019 (1.002-1.030); Urine Urobilinogen Negative (Negative)
[2023-08-05 20:09] LABS: Urine Bacteria Absent (Absent); Urine Red Blood Cell Absent (Absent); Urine Squamous Epithelial Cell Present (Absent); Urine White Blood Cell Absent (Absent)
[2023-08-05] MEDS ORDERED: Dextrose 50% Syringe 50 ml 25 GM/50 ML SYRINGE IV PUSH PRN (20:10)
[2023-08-05] MEDS ORDERED: Remdesivir 100 mg Vial 200 MG in NS 0.9% 250 ml 210 ML IV ONE (20:12)
[2023-08-05] MEDS: Enoxaparin 30 MG/0.3 ML SYR SUBCUT SCH (22:13)
[2023-08-05] MEDS: Lactated Ringers 1000 ml BAG 1,000 ML IV SCH (23:45)
[2023-08-06] MEDS: Lactated Ringers 1000 ml BAG 1,000 ML IV SCH ×3 (05:20→16:34)
[2023-08-06 06:28] LABS: ABS Eosinophils 0.1 10^3/uL (0.0-0.5); ABS Lymphocytes 1.4 10^3/uL (1.0-4.8); ABS Monocytes 0.4 10^3/uL (0.0-1.1); ABS Neutrophils 2.7 10^3/uL (1.5-7.6); Eosinophil % 1.4 %; Hematocrit 38.4 % (38-53); Hemoglobin 12.7 g/dL (13.2-16.3); Lymphocyte % 30.2 %; Mean Corpuscular Hemoglobin 32.1 pg (27-33); Mean Corpuscular Hgb Conc 33.2 g/dL (31-36); Mean Corpuscular Volume 96.9 fL (80-97); Mean Platelet Volume 7.2 fL (7.5-11.2); Nucleated Red Blood Cells % 0.1 %/100WBC (0.0-0.8); Platelet Count 228 10^3/uL (150-450); Red Blood Count 3.96 10^6/uL (4.06-5.63); Red Cell Distribution Width 15.9 % (12-17); White Blood Count 4.5 10^3/uL (3.6-10.2)
[2023-08-06 06:37] LABS: INR 1.02 (0.83-1.13)
[2023-08-06 07:01] LABS: Potassium 4.6 mmol/L (3.5-5.0)
[2023-08-06 07:02] LABS: Albumin 3.1 g/dL (3.2-5.2); Albumin/Globulin Ratio 1.3 (1-3); Calcium 7.7 mg/dL (8.6-10.3); Creatinine, Serum 4.41 mg/dL (0.67-1.17); Globulin 2.4 g/dL (2-4); Magnesium 2.1 mg/dL (1.9-2.7); Total Bilirubin 0.2 mg/dL (0.2-1.0); Total Protein 5.5 g/dL (6.4-8.9); eGFR CKD-EPI 14.3 (>60)
[2023-08-06] MEDS: Albuterol HFA INHALER 8 gm MDI INH PRN ×2 (12:00→18:02)
[2023-08-06] MEDS ORDERED: Remdesivir 100 mg Vial 100 MG in NS 0.9% 250 ml 230 ML IV SCH (21:00)
[2023-08-06] MEDS: Enoxaparin 30 MG/0.3 ML SYR SUBCUT SCH (22:57)
[2023-08-07] MEDS ORDERED: hydrALAZINE 20 mg/ml 1 ML Vial IV IV SLOW PU PRN (07:32)
[2023-08-07 07:51] LABS: Albumin 2.9 g/dL (3.2-5.2); Albumin/Globulin Ratio 1.5 (1-3); Calcium 7.9 mg/dL (8.6-10.3); Creatinine, Serum 3.93 mg/dL (0.67-1.17); Potassium 4.5 mmol/L (3.5-5.0); Total Bilirubin 0.3 mg/dL (0.2-1.0); Total Protein 4.9 g/dL (6.4-8.9); eGFR CKD-EPI 16.4 (>60)
[2023-08-07 10:19] VITALS: BP 156/96
== END 2023-08-07 12:58 | disposition home or self-care (01) ==
LOC: EDHOLD 13:26 → ED 13:26 → SUATTDRO 19:26 → MEDTELE 21:00
PROVIDERS: ADMIT Internal Medicine; ATTEND Internal Medicine

== ENCOUNTER 2024-02-28 17:02 | Inpatient (IN) ==
[2024-02-28 18:40] LABS: ABS Lymphocytes 1.6 10^3/uL (1.0-4.8); ABS Monocytes 0.8 10^3/uL (0.0-1.1); Eosinophil % 0.4 %; Hemoglobin 12.2 g/dL (13.2-16.3); Mean Corpuscular Hemoglobin 33.4 pg (27-33); Mean Corpuscular Hgb Conc 34.7 g/dL (31-36); Mean Corpuscular Volume 96.3 fL (80-97); Mean Platelet Volume 7.3 fL (7.5-11.2); Platelet Count 229 10^3/uL (150-450); Red Blood Count 3.63 10^6/uL (4.06-5.63); White Blood Count 8.5 10^3/uL (3.6-10.2)
[2024-02-28 19:14] LABS: Activated Partial Thrombo Time 25.5 seconds (26.0-38.0); INR 0.92 (0.83-1.13)
[2024-02-28] MEDS: Lactated Ringers 1000 ml BAG 1,000 ML IV ONE ×2 (19:31→22:21)
[2024-02-28 20:00] LABS: High Sensitivity Troponin 1 Hr 57 pg/mL (<20)
[2024-02-28 20:50] LABS: Albumin 3.2 g/dL (3.2-5.2); Albumin/Globulin Ratio 1.3 (1-3); C Reactive Protein 4.35 mg/L (<8.01); Creatinine, Serum 8.93 mg/dL (0.67-1.17); Globulin 2.4 g/dL (2-4); Total Bilirubin 0.7 mg/dL (0.2-1.0); Total Protein 5.6 g/dL (6.4-8.9); eGFR CKD-EPI 6.1 (>60)
[2024-02-28 22:02] LABS: Magnesium 1.9 mg/dL (1.9-2.7)
[2024-02-28] MEDS: Heparin 5000 UNITS/ML 1 mL VIAL SUBCUT SCH (23:53)
[2024-02-29] MEDS ORDERED: Dextrose 50% Syringe 50 ml 25 GM/50 ML SYRINGE IV PUSH PRN (00:17)
[2024-02-29] MEDS ORDERED: Metoprolol Tartrate 5 mg VIAL 5 ml VIAL (1 mg/ml) IV PRN (00:18)
[2024-02-29] MEDS: NS 0.9% 1000 ml BAG 1,000 ML IV SCH (01:45)
[2024-02-29] MEDS: Potassium Chlor 20 meq TAB.ER PO SCH (01:51)
[2024-02-29 06:14] LABS: ABS Lymphocytes 1.4 10^3/uL (1.0-4.8); ABS Monocytes 0.5 10^3/uL (0.0-1.1); ABS Neutrophils 3.7 10^3/uL (1.5-7.6); ABS Nucleated RBC 0.01 10^3/ul; Eosinophil % 0.7 %; Hematocrit 32.9 % (38-53); Mean Corpuscular Hemoglobin 32.6 pg (27-33); Mean Corpuscular Hgb Conc 33.6 g/dL (31-36); Mean Platelet Volume 6.8 fL (7.5-11.2); Nucleated Red Blood Cells % 0.1 %/100WBC (0.0-0.8); Platelet Count 206 10^3/uL (150-450); Red Blood Count 3.39 10^6/uL (4.06-5.63); White Blood Count 5.7 10^3/uL (3.6-10.2)
[2024-02-29 06:21] LABS: Urine Appearance Clear; Urine Bilirubin Negative (Negative); Urine Blood Trace (Negative); Urine Color Light-Yellow; Urine Glucose Trace (Negative); Urine Ketones Negative (Negative); Urine Nitrite Negative (Negative); Urine Protein 2+ (>=100 mg/dL) (Negative); Urine Specific Gravity 1.011 (1.002-1.030); Urine Urobilinogen Negative (Negative); Urine pH 5.5 (5.0-8.0)
[2024-02-29 06:55] LABS: Calcium 7.4 mg/dL (8.6-10.3); Creatinine, Serum 8.79 mg/dL (0.67-1.17); Magnesium 1.7 mg/dL (1.9-2.7); Potassium 3.7 mmol/L (3.5-5.0); eGFR CKD-EPI 6.2 (>60)
[2024-02-29 07:09] LABS: TSH Ultra Thyroid Stim Horm 1.16 mcIU/mL (0.34-5.60)
[2024-02-29 07:13] LABS: Urine Bacteria 1+ /HPF (Absent); Urine Red Blood Cell Trace(0-2/hpf) /HPF (0-Trace); Urine White Blood Cell Trace(0-5/hpf) /HPF (0-Trace)
[2024-02-29] MEDS: Magnesium Sulfate 2 gm BAG 2 GM/50 ML BAG IVPB ONE (07:56)
[2024-02-29] MEDS: Aspirin EC 81 mg TAB.EC (enteric coated) PO SCH (08:57)
[2024-02-29] MEDS: Heparin 1,000 UNIT/ML 10 ml (10,000 UNITS) CATHLAB/DIALYSIS DIALYSIS ONE (12:12)
[2024-02-29] MEDS: Insulin GLARGINE 100 un/ml 10 ml VIAL SUBCUT SCH (19:58)
[2024-03-01 06:51] LABS: ABS Eosinophils 0.1 10^3/uL (0.0-0.5); ABS Lymphocytes 1.1 10^3/uL (1.0-4.8); ABS Monocytes 0.5 10^3/uL (0.0-1.1); ABS Neutrophils 4.8 10^3/uL (1.5-7.6); ABS Nucleated RBC 0.01 10^3/ul; Eosinophil % 0.8 %; Hematocrit 34.7 % (38-53); Hemoglobin 11.8 g/dL (13.2-16.3); Lymphocyte % 17.5 %; Mean Corpuscular Hemoglobin 33.1 pg (27-33); Mean Corpuscular Hgb Conc 33.9 g/dL (31-36); Mean Corpuscular Volume 97.6 fL (80-97); Mean Platelet Volume 7.3 fL (7.5-11.2); Nucleated Red Blood Cells % 0.1 %/100WBC (0.0-0.8); Platelet Count 200 10^3/uL (150-450); Red Blood Count 3.56 10^6/uL (4.06-5.63); Red Cell Distribution Width 14.2 % (12-17); White Blood Count 6.5 10^3/uL (3.6-10.2)
[2024-03-01] MEDS ORDERED: NS 0.9% 1000 ml BAG 1,000 ML IV ONE (07:00)
[2024-03-01 07:25] LABS: Creatinine, Serum 8.45 mg/dL (0.67-1.17); Magnesium 2.2 mg/dL (1.9-2.7); Potassium 3.6 mmol/L (3.5-5.0); eGFR CKD-EPI 6.5 (>60)
[2024-03-01] MEDS ORDERED: Gentamicin 0.1% OINTMENT 15 GM TUBE TOPICAL SCH (09:00)
[2024-03-01] MEDS ORDERED: fentaNYL 100 mcg/2 ml 50 MCG/ML VIAL ONE (11:50)
[2024-03-01] MEDS ORDERED: Midazolam 5 mg/5 ml VIAL 1 mg/ml 5 ml VIAL (5 mg) ONE (11:50)
[2024-03-01] MEDS ORDERED: Flumazenil 0.5 mg/5 ml 0.1 MG/ML 5 ml VIAL ONE (11:50)
[2024-03-01] MEDS ORDERED: Naloxone 0.4 mg VIAL 0.4 mg/ml 1 ml VIAL ONE (11:50)
[2024-03-01] MEDS ORDERED: Midazolam 10 mg/10 ml VIAL 1 mg/ml 10 ml VIAL (10 mg) IV SLOW PU ONE (12:23)
[2024-03-01] MEDS ORDERED: fentaNYL 100 mcg/2 ml 50 MCG/ML VIAL IV SLOW PU ONE (12:23)
[2024-03-01 14:26] VITALS: BP 106/85
[2024-03-01] MEDS: COVID VAC 23-24(12+)(Moderna) SYR 0.5 ML IM ONE (16:50)
== END 2024-03-01 17:10 | disposition home or self-care (01) | DRG 201 ==
LOC: EDHOLD 17:02 → ED 17:02 → SUATTDRO 22:47 → MEDTELE 02-29 16:54
PROVIDERS: ADMIT Internal Medicine; ATTEND Hospitalist

== ENCOUNTER 2024-03-16 10:34 | Inpatient (IN) ==
[2024-03-16 12:05] LABS: ABS Basophils 0.1 10^3/uL (0.0-0.1); ABS Eosinophils 0.1 10^3/uL (0.0-0.5); ABS Lymphocytes 1.3 10^3/uL (1.0-4.8); ABS Monocytes 0.6 10^3/uL (0.0-1.1); ABS Neutrophils 4.6 10^3/uL (1.5-7.6); ABS Nucleated RBC 0.01 10^3/ul; Eosinophil % 1.4 %; Hematocrit 35.6 % (38-53); Hemoglobin 11.8 g/dL (13.2-16.3); Lymphocyte % 19.9 %; Mean Corpuscular Hemoglobin 32.6 pg (27-33); Mean Corpuscular Hgb Conc 33.1 g/dL (31-36); Mean Corpuscular Volume 98.5 fL (80-97); Mean Platelet Volume 6.8 fL (7.5-11.2); Nucleated Red Blood Cells % 0.1 %/100WBC (0.0-0.8); Platelet Count 337 10^3/uL (150-450); Red Blood Count 3.62 10^6/uL (4.06-5.63); Red Cell Distribution Width 15.2 % (12-17); White Blood Count 6.6 10^3/uL (3.6-10.2)
[2024-03-16 12:39] LABS: ALT 19 U/L (7-52); AST 19 U/L (13-39); Albumin 3.6 g/dL (3.2-5.2); Albumin/Globulin Ratio 1.3 (1-3); Alkaline Phosphatase 72 U/L (35-149); Anion Gap 11 mmol/L (2-16); Blood Urea Nitrogen 41 mg/dL (6-24); C Reactive Protein < 1.00 mg/L (<8.01); CO2 Carbon Dioxide 28 mmol/L (22-32); Calcium 8.9 mg/dL (8.6-10.3); Chloride 104 mmol/L (101-111); Creatinine, Serum 7.75 mg/dL (0.67-1.17); Globulin 2.8 g/dL (2-4); Glucose 84 mg/dL (70-100); Potassium 3.9 mmol/L (3.5-5.0); Sodium 143 mmol/L (135-145); Total Bilirubin 0.6 mg/dL (0.2-1.0); Total Protein 6.4 g/dL (6.4-8.9); eGFR CKD-EPI 7.2 (>60)
[2024-03-16] MEDS ORDERED: Polyethylene Glycol 3350 17 GM PACKET PO PRN (14:18)
[2024-03-16] MEDS ORDERED: Senna TAB 8.6 mg TAB PO PRN (14:18)
[2024-03-16 14:28] LABS: Erythrocyte Sed Rate 53 mm/Hr (0-19)
[2024-03-16] MEDS: Heparin 1,000 UNIT/ML 10 ml (10,000 UNITS) CATHLAB/DIALYSIS DIALYSIS SCH (16:00)
[2024-03-16] MEDS ORDERED: Dextrose 50% Syringe 50 ml 25 GM/50 ML SYRINGE IV PUSH PRN (16:56)
[2024-03-16] MEDS: Enoxaparin 100 MG/ML SYR SUBCUT SCH (18:13)
[2024-03-17 06:47] LABS: ABS Eosinophils 0.1 10^3/uL (0.0-0.5); ABS Lymphocytes 1.5 10^3/uL (1.0-4.8); ABS Monocytes 0.6 10^3/uL (0.0-1.1); ABS Neutrophils 3.8 10^3/uL (1.5-7.6); Eosinophil % 2.1 %; Hematocrit 31.4 % (38-53); Hemoglobin 10.5 g/dL (13.2-16.3); Lymphocyte % 24.2 %; Mean Corpuscular Hemoglobin 32.9 pg (27-33); Mean Corpuscular Hgb Conc 33.5 g/dL (31-36); Mean Corpuscular Volume 98.1 fL (80-97); Mean Platelet Volume 6.6 fL (7.5-11.2); Nucleated Red Blood Cells % 0.1 %/100WBC (0.0-0.8); Platelet Count 266 10^3/uL (150-450); Red Cell Distribution Width 14.9 % (12-17)
[2024-03-17 07:40] LABS: Calcium 7.9 mg/dL (8.6-10.3); Creatinine, Serum 8.02 mg/dL (0.67-1.17)
[2024-03-17] MEDS: Aspirin EC 81 mg TAB.EC (enteric coated) PO SCH (08:45)
[2024-03-17 10:20] LABS: Folate 3.9 ng/mL (5.90-24.80)
[2024-03-17] MEDS: Gentamicin 0.1% OINTMENT 15 GM TUBE TOPICAL SCH (16:40)
[2024-03-17 23:14] LABS: Anaplasma phagocytophilum Negative (Negative); B. miyamotoi PCR, B Negative (Negative); Babesia divergens/MO-1 Negative (Negative); Babesia ducani Negative (Negative); Ehrlichia chaffeensis Negative (Negative); Ehrlichia ewingii/canis Negative (Negative); Ehrlichia muris eauclairensis Negative (Negative)
[2024-03-18 06:11] LABS: ABS Eosinophils 0.1 10^3/uL (0.0-0.5); ABS Lymphocytes 1.5 10^3/uL (1.0-4.8); ABS Monocytes 0.5 10^3/uL (0.0-1.1); ABS Neutrophils 3.4 10^3/uL (1.5-7.6); Eosinophil % 2.1 %; Hematocrit 30.8 % (38-53); Hemoglobin 10.4 g/dL (13.2-16.3); Lymphocyte % 26.8 %; Mean Corpuscular Hemoglobin 32.8 pg (27-33); Mean Corpuscular Hgb Conc 33.7 g/dL (31-36); Mean Corpuscular Volume 97.4 fL (80-97); Nucleated Red Blood Cells % 0.1 %/100WBC (0.0-0.8); Platelet Count 290 10^3/uL (150-450); Red Blood Count 3.16 10^6/uL (4.06-5.63); Red Cell Distribution Width 14.8 % (12-17); White Blood Count 5.6 10^3/uL (3.6-10.2)
[2024-03-18 06:31] LABS: Calcium 8.2 mg/dL (8.6-10.3); Creatinine, Serum 8.09 mg/dL (0.67-1.17); Magnesium 2.1 mg/dL (1.9-2.7); eGFR CKD-EPI 6.9 (>60)
[2024-03-18] MEDS: Sulfur Hexaflouride MICROSPHR 25 MG VIAL IV PRN (16:53)
[2024-03-18 18:45] VITALS: BP 116/54
== END 2024-03-18 18:20 | disposition home or self-care (01) | DRG 45 ==
LOC: EDHOLD 10:34 → ED 10:34 → OBSVTOIN 14:28 → MEDTELE 19:52
PROVIDERS: ADMIT Internal Medicine; ATTEND Internal Medicine

== ENCOUNTER 2024-06-16 13:36 | Inpatient (IN) ==
[2024-06-16 15:20] LABS: ABS Basophils 0.1 10^3/uL (0.0-0.1); ABS Eosinophils 0.1 10^3/uL (0.0-0.5); ABS Lymphocytes 1.2 10^3/uL (1.0-4.8); ABS Monocytes 0.3 10^3/uL (0.0-1.1); ABS Neutrophils 3.4 10^3/uL (1.5-7.6); ABS Nucleated RBC 0.01 10^3/ul; Eosinophil % 1.5 %; Hematocrit 33.2 % (38-53); Hemoglobin 11.3 g/dL (13.2-16.3); Lymphocyte % 23.2 %; Mean Corpuscular Hemoglobin 31.8 pg (27-33); Mean Corpuscular Volume 93.5 fL (80-97); Mean Platelet Volume 8.6 fL (7.5-11.2); Nucleated Red Blood Cells % 0.2 %/100WBC (0.0-0.8); Platelet Count 226 10^3/uL (150-450); Red Blood Count 3.55 10^6/uL (4.06-5.63); Red Cell Distribution Width 13.6 % (12-17)
[2024-06-16 15:44] LABS: High Sens Troponin Baseline 90 pg/mL (<20)
[2024-06-16 16:06] LABS: ALT 148 U/L (7-52); Alkaline Phosphatase 167 U/L (35-149); Anion Gap 14 mmol/L (2-16); Blood Urea Nitrogen 58 mg/dL (6-24); C Reactive Protein 2.61 mg/L (<8.01); CO2 Carbon Dioxide 25 mmol/L (22-32); Calcium 6.7 mg/dL (8.6-10.3); Chloride 90 mmol/L (101-111); Creatinine, Serum 13.39 mg/dL (0.67-1.17); Globulin 3.1 g/dL (2-4); Glucose 124 mg/dL (70-100); Sodium 129 mmol/L (135-145); Total Bilirubin 0.9 mg/dL (0.2-1.0); Total Protein 6.1 g/dL (6.4-8.9); eGFR CKD-EPI 3.8 (>60)
[2024-06-16 16:21] LABS: Activated Partial Thrombo Time 25.1 seconds (26.0-38.0); INR 1.1 (0.85-1.14)
[2024-06-16] MEDS: Lactated Ringers 1000 ml BAG 500 ML IV ONE (16:52)
[2024-06-16 16:56] LABS: High Sensitivity Troponin 1 Hr 97 pg/mL (<20)
[2024-06-16] MEDS: Ondansetron 4 mg VIAL 2 MG/ML 2 ml VIAL IV ONE (17:33)
[2024-06-16 17:50] LABS: Potassium Redraw 3.8 mmol/L (3.5-5.0)
[2024-06-17] MEDS: Lactated Ringers 1000 ml BAG 1,000 ML IV SCH (06:09)
[2024-06-17] MEDS: Heparin 1,000 UNIT/ML 10 ml (10,000 UNITS) CATHLAB/DIALYSIS DIALYSIS SCH (08:38)
[2024-06-17] MEDS: NS 0.9% 1000 ml BAG 1,000 ML IV SCH ×2 (17:23→18:22)
[2024-06-17] MEDS ORDERED: Sulfur Hexaflouride MICROSPHR 25 MG VIAL IV PRN (17:28)
[2024-06-17] MEDS: NS 0.9% IVPB ONE (18:25)
[2024-06-17] MEDS: AZITHROMYCIN IVPB ONE (18:25)
[2024-06-19 05:54] LABS: Hemoglobin 8.9 g/dL (13.2-16.3); Mean Corpuscular Hgb Conc 34.1 g/dL (31-36); Mean Corpuscular Volume 93.8 fL (80-97); Mean Platelet Volume 7.9 fL (7.5-11.2); Platelet Count 133 10^3/uL (150-450); Red Blood Count 2.77 10^6/uL (4.06-5.63); Red Cell Distribution Width 13.4 % (12-17); White Blood Count 5.7 10^3/uL (3.6-10.2)
[2024-06-19 06:15] LABS: Calcium 6.8 mg/dL (8.6-10.3); Creatinine, Serum 12.11 mg/dL (0.67-1.17); Magnesium 1.7 mg/dL (1.9-2.7); Potassium 2.9 mmol/L (3.5-5.0); eGFR CKD-EPI 4.2 (>60)
[2024-06-19] MEDS: Magnesium Sulfate 2 gm BAG 2 GM/50 ML BAG IVPB ONE (10:24)
[2024-06-19] MEDS: Magnesium Sulfate IV 1GM/100ML 1 GM/100 ML BAG IV ONE (12:31)
[2024-06-19] MEDS: Potassium Chlor 20 meq TAB.ER PO SCH (14:50)
[2024-06-19] MEDS: KCL 20 MEQ/100 ML IVPREMIX 20 MEQ/100 ML BAG IV SCH (14:51)
[2024-06-20 06:03] LABS: Hematocrit 25.5 % (38-53); Hemoglobin 8.7 g/dL (13.2-16.3); Mean Corpuscular Hemoglobin 32.4 pg (27-33); Mean Corpuscular Hgb Conc 34.2 g/dL (31-36); Mean Corpuscular Volume 94.6 fL (80-97); Mean Platelet Volume 7.6 fL (7.5-11.2); Platelet Count 139 10^3/uL (150-450); Red Cell Distribution Width 13.3 % (12-17); White Blood Count 5.9 10^3/uL (3.6-10.2)
[2024-06-20] MEDS: Mupirocin 2% OINT TUBE TOPICAL SCH (06:33)
[2024-06-20 06:43] LABS: Calcium 7.1 mg/dL (8.6-10.3); Creatinine, Serum 11.34 mg/dL (0.67-1.17); Potassium 3.7 mmol/L (3.5-5.0); eGFR CKD-EPI 4.6 (>60)
[2024-06-21 07:43] LABS: ABS Basophils 0.1 10^3/uL (0.0-0.1); ABS Eosinophils 0.3 10^3/uL (0.0-0.5); ABS Lymphocytes 1.4 10^3/uL (1.0-4.8); ABS Monocytes 0.6 10^3/uL (0.0-1.1); ABS Neutrophils 4.2 10^3/uL (1.5-7.6); ABS Nucleated RBC 0.01 10^3/ul; Eosinophil % 4.3 %; Hematocrit 25.8 % (38-53); Hemoglobin 8.9 g/dL (13.2-16.3); Lymphocyte % 21.8 %; Mean Corpuscular Hemoglobin 32.7 pg (27-33); Mean Corpuscular Hgb Conc 34.3 g/dL (31-36); Mean Corpuscular Volume 95.3 fL (80-97); Mean Platelet Volume 7.2 fL (7.5-11.2); Nucleated Red Blood Cells % 0.2 %/100WBC (0.0-0.8); Platelet Count 145 10^3/uL (150-450); Red Blood Count 2.71 10^6/uL (4.06-5.63); Red Cell Distribution Width 13.8 % (12-17); White Blood Count 6.6 10^3/uL (3.6-10.2)
[2024-06-21 08:31] LABS: ALT 65 U/L (7-52); AST 122 U/L (13-39); Albumin 2.3 g/dL (3.2-5.2); Albumin/Globulin Ratio 0.9 (1-3); Alkaline Phosphatase 87 U/L (35-149); Anion Gap 11 mmol/L (2-16); Blood Urea Nitrogen 54 mg/dL (6-24); CO2 Carbon Dioxide 25 mmol/L (22-32); Calcium 7.2 mg/dL (8.6-10.3); Chloride 104 mmol/L (101-111); Digoxin < 0.2 ng/ml (0.8-2.0); Globulin 2.6 g/dL (2-4); Glucose 76 mg/dL (70-100); Potassium 3.6 mmol/L (3.5-5.0); Sodium 140 mmol/L (135-145); Total Bilirubin 0.4 mg/dL (0.2-1.0); Total Protein 4.9 g/dL (6.4-8.9); eGFR CKD-EPI 4.7 (>60)
[2024-06-21] MEDS: Psyllium PAK PO SCH (14:39)
[2024-06-22 10:29] VITALS: BP 135/71
== END 2024-06-22 13:05 | disposition home or self-care (01) | DRG 204 ==
LOC: EDHOLD 13:36 → ED 13:36 → SUATTDRO 19:44 → OBSVTOIN 19:44 → MEDTELE 21:32
PROVIDERS: ADMIT Internal Medicine; ATTEND Internal Medicine